=== PATIENT | female | born 1940 | race Caucasian/White ===

== ENCOUNTER 2023-08-13 13:37 | Inpatient (IN) | payer MEDICARE ==
[~2023-08-13] VITALS: Ht 157.4 cm; Wt 64.2 kg
[~2023-08-13 13:37] MED LIST: ALB0.5V IH; AMLO10TA4 PO; ASP81CT PO; ASPI-875 PO; ASPI1TAB PO; ASPI1TAB22 PO; ATEN100T88 PO; CEPH500C PO; DIPH25TA31 PO; DIPH25TA82 PO; EPIN0.3P3 IM; HYDR25TA4 PO; LEVO500T2 PO; LISI1TAB PO; LISI40TA PO; LRT10T PO; MECL25TA3 PO; MPR22TI NSEACH; NAPR220C11 PO; PRAV10TA PO; PRAV40TA PO; PRD20T PO; SCOP1PAT10 TD
--- NOTE | 2023-08-13 13:50 | ED Fall/Injury ---
General Chief Complaint: Trauma-Non Activation Stated Complaint: FELL/RT HIP/GROIN PAIN Source: patient Exam Limitations: no limitations History of Present Illness Date Seen by Provider: Aug 13, 2023 Time Seen by Provider: 13:43 Initial Comments 82-year-old female presents after a mechanical fall. She is making cookies with her granddaughter when her granddaughter jumped off of a counter to her causing her to fall down. She has pain at her right hip, groin region. She did not hit her head or lose consciousness. She is not on blood thinning medications. She has been unable to bear weight since the incident. All other systems reviewed and negative except documented per HPI. Voice recognition software was used to help create this chart Allergies and Home Medications Allergies Coded Allergies: lisinopril (Verified Allergy, Severe, angioedema, 01/18/14) pseudoephedrine HCl (Verified Allergy, Unknown, 01/18/14) famotidine (Verified Adverse Reaction, Mild, 01/19/14) pt started to feel short of breath after dose of pepcid Patient Home Medication List Home Medication List Reviewed: Yes Albuterol Sulfate (Albuterol Sulfate) 2.5 Mg/0.5 Ml Vial.neb, 2.5 MG IH Q4H Prescribed by: PRATEEK SEXTON on 05/05/16 0232 Amlodipine Besylate (Norvasc) 10 Mg Tablet, 10 MG PO DAILY Prescribed by: RAMÍREZ SAUNDERS on 01/28/14 0749 Aspirin (Harvey Aspirin) 81 Mg Tablet.dr, 81 MG PO HS, (Reported) Entered as Reported by: LEILANI VALENCIA on 01/18/14 1411 Aspirin/Acetaminophen/Caffeine (Excedrin Migraine Caplet) 1 Tab Tablet, 2 TAB PO DAILY PRN for MIGRAINE, (Reported) Entered as Reported by: LEILANI VALENCIA on 01/18/14 1411 Atenolol (Tenormin 100 Mg) 100 Mg Tablet, 100 MG PO HS, (Reported) Entered as Reported by: RIVERA PRUITT on 01/25/13 1432 Epinephrine (Epipen 2-Александр) 0.3 Mg/0.3 Ml Pen.injctr, 0.3 MG IM UD PRN for DYSP LORRIE Prescribed by: ARI ANG on 01/20/14 1138 Levofloxacin (Levaquin) 500 Mg Tablet, 500 MG PO DAILY Prescribed by: PRATEEK SEXTON on 05/05/16213 Loratadine (Claritin) 10 Mg Tab, 10 MG PO DAILY PRN for RUNNY NOSE, (Reported) Entered as Reported by: LEILANI VALENCIA on 01/18/14 141 Meclizine HCl (Antivert) 25 Mg Tablet, 1-2 TAB PO Q6H Prescribed by: PRATEEK SEXTON on 05/05/16213 Pravastatin Sodium (Pravastatin Sodium) 10 Mg Tablet, 10 MG PO HS, (Reported) Entered as Reported by: LEILANI VALENCIA on 01/18/14 142 Scopolamine (Transderm-Scop) 1 Each Patch.td72, 1 EACH TD Q72 HOURS Prescribed by: PRATEEK SEXTON on 05/05/16213 Review of Systems Review of Systems Constitutional: see HPI Past Icchvii-Lswsuk-Ylygeo Hx Patient Social History Tobacco Use?: No Substance use?: No Alcohol Use?: No Past Medical History Surgery/Hospitalization HX: HTN, BILAT KNEE, APPEN Appendectomy, Hysterectomy, Joint Replacement High Cholesterol, Hypertension Reproductive Disorders: 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: Hysterectomy Arthritis Eczema Family Medical History Cancer (ONE SISTER HAD BREAST CANCER ONE SISTER HAD OVARIAN CANCER) G8 SISTER Chest pain G8 SISTER Family history: Asthma (CHILDREN HAVE ASTHMA) Family history: Cardiovascular disease G8 SISTER Family history: Hypertension G8 BROTHER G8 SISTER Headache (DAUGHTERS HAVE SÁNCHEZ) Heart disease G8 SISTER Hypercholesterolemia G8 BROTHER Myocardial infarction 19 FATHER G8 SISTER Stroke (MATERNAL AUNT) Visual impairment (EVERYONE WEARS GLASSES) No Family History of: Abdominal aortic aneurysm [place]'s disease Alcoholism Aphasia Cancer of colon Cataract Congenital heart disease Congestive heart failure Cystic fibrosis Dementia Dysphagia Family history: Allergy Family history: Alzheimer's disease Family history: Arthritis Family history: Breast disease Family history: Coronary thrombosis Family history: Diabetes mellitus Family history: Gastrointestinal disease Family history: Glaucoma Family history: Osteoporosis Family history: Thyroid disorder Hearing loss Hereditary disease History of - anemia History of - disorder History of - respiratory disease History of drug abuse Human immunodeficiency virus (HIV) seropositivity Infertile Kidney disease Malignant neoplasm of lung Parkinson's disease Prostate cancer Psychotic disorder Seizure disorder Tuberculosis Physical Exam Vital Signs Vital Signs - First Documented 08/13/23 13:45 Pulse 74 B/P (MAP) 144/68 (93) Pulse Ox 94 O2 Delivery Room Air Capillary Refill : Height, Weight, BMI Height: 5'1" Weight: 150lbs. oz. 68.234936bh; 29.85 BMI Method:Stated General Appearance: WD/WN, no apparent distress Neck: non-tender, full range of motion Cardiovascular: regular rate, rhythm, no murmur Respiratory: chest non-tender, lungs clear, normal breath sounds, no respiratory distress, no accessory muscle use Gastrointestinal: normal bowel sounds, soft Extremities: other (Tenderness palpation right medial groin, lesser so in the lateral hip on the right side. Neurovascular motor and sensory intact distally. No distal tenderness.) Neurologic/Psychiatric: alert, oriented x 3 Skin: normal color, warm/dry Progress/Results/Core Measures Results/Orders Lab Results Laboratory Tests Test 08/13/23 14:45 Range/Units White Blood Count 8.4 4.3-11.0 10^3/uL Red Blood Count 4.51 3.80-5.11 10^6/uL Hemoglobin 13.7 11.5-16.0 g/dL Hematocrit 41 35-52 % Mean Corpuscular Volume 91 80-99 fL Mean Corpuscular Hemoglobin 30 25-34 pg Mean Corpuscular Hemoglobin Concent 34 32-36 g/dL Red Cell Distribution Width 12.8 10.0-14.5 % Platelet Count 171 130-400 10^3/uL Mean Platelet Volume 11.8 9.0-12.2 fL Immature Granulocyte % (Auto) 0 % Neutrophils (%) (Auto) 68 42-75 % Lymphocytes (%) (Auto) 23 12-44 % Monocytes (%) (Auto) 7 0-12 % Eosinophils (%) (Auto) 3 0-10 % Basophils (%) (Auto) 0 0-10 % Neutrophils # (Auto) 5.7 1.8-7.8 10^3/uL Lymphocytes # (Auto) 1.9 1.0-4.0 10^3/uL Monocytes # (Auto) 0.6 0.0-1.0 10^3/uL Eosinophils # (Auto) 0.2 0.0-0.3 10^3/uL Basophils # (Auto) 0.0 0.0-0.1 10^3/uL Immature Granulocyte # (Auto) 0.0 0.0-0.1 10^3/uL My Orders Orders - CRISTINA RIVERA DO Pelvis With Right Hip 2-3views (08/13/23 13:47) Cbc And Automated Diff (08/13/23 14:33) Basic Metabolic Panel (08/13/23 14:33) Ed Iv/Invasive Line Start (08/13/23 14:34) Chest 1 View, Ap/Pa Only (08/13/23 14:34) Ekg Tracing (08/13/23 14:34) Ed Admission (Communication) (08/13/23 14:35) Vital Signs/I&O 08/13/23 13:45 Pulse 74 B/P (MAP) 144/68 (93) Pulse Ox 94 O2 Delivery Room Air Comment Sinus rhythm with a rate of 80 bpm. Normal intervals. Normal axis. No ST or T wave abnormalities. No ectopy. No STEMI. Departure Communication (Admissions) Patient has a femoral neck fracture on the right side. No other obvious injurie s. Spoke with Dr. Her request admission. States she can eat tonight and will likely operate tomorrow. Spoke with Dr. Martinez who accepts the patient in admission. She request labs, EKG and chest x-ray for preop clearance. Impression Primary Impression: Femoral neck fracture Qualified Codes: S72.001A - Fracture of unspecified part of neck of right femur, initial encounter for closed fracture Disposition: ADMITTED INPATIENT Condition: Stable Admissions Decision to Admit Reason: Admit from ER (General) Departure-Patient Inst. Referrals: ARI ANG MD (PCP/Family) Primary Care Physician CRISTINA RIVERA DO Aug 13, 2023 13:50
--- NOTE | 2023-08-13 14:33 | Diagnostic Imaging Report ---
Indication: A fracture. AP pelvis and two-view right hip shows moderately displaced subcapital femoral neck fracture without dislocation. No acetabular injury. Superior and inferior pubic rami intact. Remaining bony pelvis and contralateral left hip intact Impression: Right femoral neck fracture without dislocation. Dictated by: Dictated on workstation # [id number]
[2023-08-13 14:48] LABS: BASOPHILS % (AUTO) 0 % (0-10); EOSINOPHILS # (AUTO) 0.2 10^3/uL (0.0-0.3); EOSINOPHILS % (AUTO) 3 % (0-10); HEMATOCRIT 41 % (35-52); HEMOGLOBIN 13.7 g/dL (11.5-16.0); LYMPHOCYTES # (AUTO) 1.9 10^3/uL (1.0-4.0); LYMPHOCYTES % (AUTO) 23 % (12-44); MEAN CORPUSCULAR HEMOGLOBIN 30 pg (25-34); MEAN CORPUSCULAR HGB CONC 34 g/dL (32-36); MEAN CORPUSCULAR VOLUME 91 fL (80-99); MEAN PLATELET VOLUME 11.8 fL (9.0-12.2); MONOCYTES # (AUTO) 0.6 10^3/uL (0.0-1.0); MONOCYTES % (AUTO) 7 % (0-12); NEUTROPHILS # (AUTO) 5.7 10^3/uL (1.8-7.8); NEUTROPHILS % (AUTO) 68 % (42-75); PLATELET COUNT 171 10^3/uL (130-400); WHITE BLOOD COUNT 8.4 10^3/uL (4.3-11.0)
[2023-08-13] MEDS ORDERED: fentaNYL INJECTION 100 MCG/2 ML VIAL IVP ONE (15:00)
[2023-08-13] MEDS ORDERED: LIDOCAINE UROJET 2% GEL 10 ML PKG TOP ONE (15:00)
--- NOTE | 2023-08-13 15:02 | History & Physical ---
History of Present Illness HPI/Chief Complaint Chief complaint: Right hip fracture HPI: This is an 82-year-old female with a history of hypertension and hyperlipidemia who sees Dr. Arndt who presented to the ER after a fall while making cookies with her granddaughter. Apparently she fell on the floor and sustained a right femoral neck fracture which will be repaired tomorrow by Dr Her. BP is stable. Source: patient Exam Limitations: no limitations Date Seen 08/13/23 Time Seen by a Provider: 18:00 Attending Physician Tiffanie Arndt MD PCP Admitting Physician: Attending Physician: Referring Physician Date of Admission Home Medications & Allergies Home Medications Reviewed patient Home Medication Reconciliation performed by pharmacy medication reconciliations robotics technician and/or nursing. Patients Allergies have been reviewed. Allergies Allergies Coded Allergies lisinopril (Verified Allergy, Severe, angioedema, 08/13/23) pseudoephedrine HCl (Verified Allergy, Unknown, 08/13/23) famotidine (Verified Adverse Reaction, Mild, 08/13/23) pt started to feel short of breath after dose of pepcid Past Nxxkaze-Oryvnn-Khodzg Hx Past Med/Social Hx: Reviewed Nursing Past Med/Soc Hx, Reviewed and Corrections made Patient Social History Marrital Status: Employed/Student: retired Alcohol Use: Denies Use Smoking Status: Never a Smoker Recent Hopitalizations: No Past Medical History Surgeries: Appendectomy, Hysterectomy, Joint Replacement Cardiac: High Cholesterol, Hypertension Reproductive: No Hysterectomy Musculoskeletal: Arthritis Skin/Integumentary: Eczema Family History Cancer (ONE SISTER HAD BREAST CANCER ONE SISTER HAD OVARIAN CANCER) G8 SISTER Chest pain G8 SISTER Family history: Asthma (CHILDREN HAVE ASTHMA) Family history: Cardiovascular disease G8 SISTER Family history: Hypertension G8 BROTHER G8 SISTER Headache (DAUGHTERS HAVE SÁNCHEZ) Heart disease G8 SISTER Hypercholesterolemia G8 BROTHER Myocardial infarction 19 FATHER G8 SISTER Stroke (MATERNAL AUNT) Visual impairment (EVERYONE WEARS GLASSES) No Family History of: Abdominal aortic aneurysm [place]'s disease Alcoholism Aphasia Cancer of colon Cataract Congenital heart disease Congestive heart failure Cystic fibrosis Dementia Dysphagia Family history: Allergy Family history: Alzheimer's disease Family history: Arthritis Family history: Breast disease Family history: Coronary thrombosis Family history: Diabetes mellitus Family history: Gastrointestinal disease Family history: Glaucoma Family history: Osteoporosis Family history: Thyroid disorder Hearing loss Hereditary disease History of - anemia History of - disorder History of - respiratory disease History of drug abuse Human immunodeficiency virus (HIV) seropositivity Infertile Kidney disease Malignant neoplasm of lung Parkinson's disease Prostate cancer Psychotic disorder Seizure disorder Tuberculosis Review of Systems Constitutional: see HPI Physical Exam Physical Exam Vital Signs Vital Signs - First Documented 08/13/23 08/13/23 13:45 19:53 Temp 38.6 Pulse 74 Resp 20 B/P (MAP) 144/68 (93) Pulse Ox 94 O2 Delivery Room Air Capillary Refill : Height, Weight, BMI Height: 5'1" Weight: 150lbs. oz. 68.749837wz; 23.00 BMI Method:Stated General Appearance: No Apparent Distress, WD/WN, Chronically ill Respiratory: Lungs Clear, Normal Breath Sounds Cardiovascular: Regular Rate, Rhythm, No Edema Gastrointestinal: Normal Bowel Sounds Neurologic/Psychiatric: Alert, Oriented x3, No Motor/Sensory Deficits, Normal Mood/Affect Skin: Normal Color, Warm/Dry Results Results/Procedures Labs Laboratory Tests 08/13/23 14:45 Patient resulted labs reviewed. Assessment/Plan Admission Diagnosis Assessment: Right femoral neck fracture HTN HLP Plan: Proceed with surgical repair since surgical benefits outweigh medical risks Admission Status: Inpatient Order (span 2 midnights) Reason for Inpatient Admission: hip fx EDDI CURRIE DO Aug 13, 2023 15:02
[2023-08-13 15:03] LABS: POTASSIUM 4.3 MMOL/L (3.6-5.0)
[2023-08-13 15:04] LABS: CALCIUM 9.4 MG/DL (8.5-10.1)
[2023-08-13 15:09] LABS: CREATININE SERUM 0.86 MG/DL (0.60-1.30)
--- NOTE | 2023-08-13 15:26 | Diagnostic Imaging Report ---
INDICATION: Hip fracture. FINDINGS: There is some right perihilar subsegmental discoid partial atelectasis or scarring, unchanged from prior. Heart size is stable. No failure, effusion, or pneumothorax. IMPRESSION: Stable chest. Dictated by: Dictated on workstation # [id number]
[2023-08-13] MEDS ORDERED: HYDROmorphone INJECTION 2 MG/ML VIAL IV PRN (16:00)
[2023-08-13] MEDS ORDERED: ONDANSETRON INJECTION 4 MG/2 ML (SDV) IV PRN (16:00)
[2023-08-13] MEDS ORDERED: LACTULOSE SYRUP 10GM/15ML 30ML UDC PO PRN (16:00)
[2023-08-13] MEDS ORDERED: ANTACID SUSPENSION 30 ML UDC PO PRN (16:00)
[2023-08-13] MEDS ORDERED: CALCIUM CARBONATE 500 MG CHEW TABLET PO PRN (16:00)
[2023-08-13] MEDS ORDERED: oxyCODONE IMMEDIATE RELEASE 5 MG TABLET PO PRN (16:00)
[2023-08-13] MEDS ORDERED: diphenhydrAMINE INJ 50 MG/ML VIAL IVP PRN (16:00)
[2023-08-13] MEDS ORDERED: diphenhydrAMINE 25 MG TABLET PO PRN (16:00)
[2023-08-13] MEDS ORDERED: ONDANSETRON 4 MG ORAL DISSOLVE TABLET PO PRN (16:00)
[2023-08-13] MEDS ORDERED: BISACODYL 10 MG SUPPOSITORY PR PRN (16:00)
[2023-08-13] MEDS ORDERED: MELATONIN 3 MG TABLET PO PRN (16:00)
[2023-08-13] MEDS ORDERED: MILK OF MAGNESIA 400 MG/5 ML 30 ML UDC PO PRN (16:00)
[2023-08-13 16:08] VITALS: BP 137/68
[2023-08-13] MEDS ORDERED: RT-ALBUTEROL SULF 2.5 MG/3 ML PRE-MIX VIAL INH PRN (16:15)
[2023-08-13] MEDS: NS IV 1000 ML 1,000 ML IV SCH (16:58)
[2023-08-13] MEDS ORDERED: AMLO-251 PO (17:14)
[2023-08-13] MEDS ORDERED: HYDR25TA4 PO (17:14)
[2023-08-13] MEDS ORDERED: METO50TA7 PO (17:14)
[2023-08-13] MEDS ORDERED: PRAV40TA2 PO (17:14)
--- NOTE | 2023-08-13 17:30 | CONSULTATION REPORT ---
DATE OF SERVICE: 08/13/2023 INPATIENT CONSULTATION REASON FOR CONSULTATION: Right femoral neck fracture. HISTORY OF PRESENT ILLNESS: The patient is an 82-year-old female who fell at home and presented with right hip pain. She was found to have a displaced right femoral neck fracture for which I was consulted. She denies any antecedent pain. REVIEW OF SYSTEMS: No chest pain, no shortness of breath. No dysuria. ALLERGIES: LISINOPRIL, PSEUDOEPHEDRINE, FAMOTIDINE. MEDICATIONS: Albuterol, amlodipine, aspirin, atenolol, pravastatin. SOCIAL HISTORY: The patient denies alcohol and tobacco use. PAST SURGICAL HISTORY: Appendectomy, hysterectomy, bilateral knee arthroplasties, appendectomy. FAMILY HISTORY: Significant for ovarian cancer and breast cancer. PHYSICAL EXAMINATION: The right lower extremity demonstrates tenderness laterally. She has symmetric pulses. She has intact dorsiflexion and plantarflexion of the toes. Her right lower extremity is slightly shortened and externally rotated. No skin lesions noted. IMPRESSION: Displaced right femoral neck fracture. PLAN: Right hip bipolar replacement. The risks, benefits, options, ramifications and recovery were discussed at length with the patient. She understands and wishes to proceed. Job ID: [id number] DocumentID: [id number] Dictated Date: 08/13/2023 16:38:53 Radiation Control Health Physicist Date: 08/13/2023 17:27:00 Dictated By: EAV JAIME MD
[2023-08-13 19:53] VITALS: BP 121/60
[2023-08-13] MEDS: amLODIPine 10 MG TABLET PO SCH (20:03)
[2023-08-13] MEDS: DOCUSATE SODIUM 100 MG CAPSULE PO SCH (20:04)
[2023-08-13] MEDS: SENNOSIDES 8.6 MG TABLET PO SCH (20:04)
[2023-08-13] MEDS ORDERED: NON-FORMULARY MEDICATION 1 EA EA (Pravastatin Sodium 40 MG) PO SCH (21:00)
[2023-08-13] MEDS: ACETAMINOPHEN 325 MG TABLET PO PRN (21:27)
[2023-08-13 23:36] VITALS: BP 108/51
[2023-08-14] VITALS (11 sets, daily range): BP systolic 108–153; BP diastolic 53–75
[2023-08-14 05:10] LABS: BASOPHILS % (AUTO) 0 % (0-10); HEMOGLOBIN 11.5 g/dL (11.5-16.0)
[2023-08-14] MEDS: NS IV 1000 ML 1,000 ML IV SCH ×2 (05:10→21:18)
[2023-08-14 05:12] LABS: EOSINOPHILS # (AUTO) 0.4 10^3/uL (0.0-0.3); EOSINOPHILS % (AUTO) 6 % (0-10); HEMATOCRIT 35 % (35-52); LYMPHOCYTES # (AUTO) 2.1 10^3/uL (1.0-4.0); LYMPHOCYTES % (AUTO) 29 % (12-44); MEAN CORPUSCULAR HEMOGLOBIN 31 pg (25-34); MEAN CORPUSCULAR HGB CONC 33 g/dL (32-36); MEAN CORPUSCULAR VOLUME 92 fL (80-99); MEAN PLATELET VOLUME 12.1 fL (9.0-12.2); MONOCYTES # (AUTO) 0.7 10^3/uL (0.0-1.0); MONOCYTES % (AUTO) 10 % (0-12); NEUTROPHILS # (AUTO) 3.9 10^3/uL (1.8-7.8); NEUTROPHILS % (AUTO) 54 % (42-75); PLATELET COUNT 125 10^3/uL (130-400); WHITE BLOOD COUNT 7.2 10^3/uL (4.3-11.0)
[2023-08-14 05:27] LABS: ALBUMIN 3.2 GM/DL (3.2-4.5); POTASSIUM 4.1 MMOL/L (3.6-5.0)
[2023-08-14 05:28] LABS: CALCIUM 8.2 MG/DL (8.5-10.1)
[2023-08-14 05:29] LABS: TOTAL PROTEIN 5.9 GM/DL (6.4-8.2)
[2023-08-14 05:31] LABS: BILIRUBIN,TOTAL 0.9 MG/DL (0.1-1.0)
[2023-08-14 05:33] LABS: CREATININE SERUM 0.77 MG/DL (0.60-1.30)
[2023-08-14] MEDS: SENNOSIDES 8.6 MG TABLET PO SCH ×3 (08:31→21:12)
[2023-08-14] MEDS: DOCUSATE SODIUM 100 MG CAPSULE PO SCH ×3 (08:31→21:12)
--- NOTE | 2023-08-14 09:57 | Progress Note ---
PATI JOHNSON 08/14/23 0957: Subjective Date Seen by a Provider: Aug 14, 2023 Time Seen by a Provider: 08:45 Subjective/Events-last exam Ms. Lal was found sitting in bed, with her daughter at bedside. She reports some hip pain, but otherwise feels well. She denies any headache/CP/SOB/abdomina l pain. She denies N/V/D. She has a benjamin catheter in place. She also endorses R arm pain, but states this is from where her granddaughter fell on her. Chest XR and EKG were unremarkable. She did apply emu oil to her R hip this morning. Review of Systems General: No Chills, No Night Sweats HEENT: No Head Aches, No Eye Pain Pulmonary: No Dyspnea, No Cough Cardiovascular: No: Chest Pain, Palpitations Gastrointestinal: No: Nausea, Vomiting, Abdominal Pain, Diarrhea Genitourinary: No Dysuria Musculoskeletal: arm pain Neurological: No: Weakness, Numbness Objective Exam Last Set of Vital Signs Vital Signs Date Time Temp Pulse Resp B/P (MAP) Pulse Ox O2 Delivery O2 Flow Rate FiO2 08/14/23 08:35 Room Air 08/14/23 08:27 37.4 68 19 126/61 (82) 91 Capillary Refill : I&O Intake and Output 08/13/23 23:59 Intake Total 360 ml Output Total 1300 ml Balance -940 ml Intake Oral 360 ml Output Urine Total 1300 ml General: Alert, Oriented X3, Cooperative, No Acute Distress HEENT: Atraumatic, EOMI, Mucous Memb Moist/Turner Neck: Supple Lungs: Clear to Auscultation, Normal Air Movement Heart: Regular Rate, No Murmurs Abdomen: Normal Bowel Sounds, Soft, No Tenderness Extremities: No Cyanosis, Normal Pulses Skin: No Rashes, No Significant Lesion Neuro: Normal Speech Psych/Mental Status: Mental Status NL Results Lab Laboratory Tests 08/13/23 14:45: White Blood Count 8.4, Red Blood Count 4.51, Hemoglobin 13.7, Hematocrit 41, Mean Corpuscular Volume 91, Mean Corpuscular Hemoglobin 30, Mean Corpuscular Hemoglobin Concent 34, Red Cell Distribution Width 12.8, Platelet Count 171, Mean Platelet Volume 11.8, Immature Granulocyte % (Auto) 0, Neutrophils (%) (Auto) 68, Lymphocytes (%) (Auto) 23, Monocytes (%) (Auto) 7, Eosinophils (%) (Auto) 3, Basophils (%) (Auto) 0, Neutrophils # (Auto) 5.7, Lymphocytes # (Auto) 1.9, Monocytes # (Auto) 0.6, Eosinophils # (Auto) 0.2, Basophils # (Auto) 0.0, Immature Granulocyte # (Auto) 0.0, Sodium Level 137, Potassium Level 4.3, Chloride Level 105, Carbon Dioxide Level 24, Anion Gap 8, Blood Urea Nitrogen 22H, Creatinine 0.86, Estimat Glomerular Filtration Rate 68, BUN/Creatinine Ratio 26, Glucose Level 101, Calcium Level 9.4 08/14/23 04:53: White Blood Count 7.2, Red Blood Count 3.77L, Hemoglobin 11.5, Hematocrit 35, Mean Corpuscular Volume 92, Mean Corpuscular Hemoglobin 31, Mean Corpuscular Hemoglobin Concent 33, Red Cell Distribution Width 12.7, Platelet Count 125L, Mean Platelet Volume 12.1, Immature Granulocyte % (Auto) 0, Neutrophils (%) (Auto) 54, Lymphocytes (%) (Auto) 29, Monocytes (%) (Auto) 10, Eosinophils (%) (Auto) 6, Basophils (%) (Auto) 0, Neutrophils # (Auto) 3.9, Lymphocytes # (Auto) 2.1, Monocytes # (Auto) 0.7, Eosinophils # (Auto) 0.4H, Basophils # (Auto) 0.0, Immature Granulocyte # (Auto) 0.0, Sodium Level 139, Potassium Level 4.1, Chloride Level 109H, Carbon Dioxide Level 25, Anion Gap 5, Blood Urea Nitrogen 14, Creatinine 0.77, Estimat Glomerular Filtration Rate 78, BUN/Creatinine Ratio 18, Glucose Level 94, Calcium Level 8.2L, Percent Immature Platelet Fraction 8.3H, Corrected Calcium 8.8, Total Bilirubin 0.9, Aspartate Amino Transf (AST/SGOT) 19, Alanine Aminotransferase (ALT/SGPT) 14, Alkaline Phosphatase 48, Total Protein 5.9L, Albumin 3.2 Assessment/Plan Assessment/Plan Assess & Plan/Chief Complaint Assessment: Ms. Lal is an 82 y/o female with R femoral neck fracture Plan: R Femoral Neck Fracture -Dr. Her to operate this afternoon -pain meds prn -supportive measure HTN -amlodipine -monitor vitals HLD -atorvastatin -monitor labs Clinical Quality Measures DVT/VTE Risk/Contraindication: Contraindications-Pharm: Other *list below* Other: OR CALLIE CURRIE DO 08/15/23 0602: Subjective Subjective/Events-last exam Patient awaiting surgery Reviewed meds and labs Gentle IV fluids continue Objective Exam General: Alert, Oriented X3, Cooperative, No Acute Distress Lungs: Clear to Auscultation, Normal Air Movement Heart: Regular Rate, Normal S1, Normal S2, No Murmurs Psych/Mental Status: Mental Status NL, Mood NL Assessment/Plan Assessment/Plan Assess & Plan/Chief Complaint Continue plan for repair today Monitor labs PT and OT Supervisory-Addendum Brief Verification & Attestation Participated in pt care: history, MDM, physical Personally performed: exam, history, MDM, supervision of care Care discussed with: Medical Student Procedures: n/a Results interpretation: Verified all documentation Verification and Attestation of Medical Student E/M Service A medical student performed and documented this service in my presence. I reviewed and verified all information documented by the medical student and made modifications to such information, when appropriate. I personally performed the physical exam and medical decision making. Callie Currie, Aug 15, 2023,06:01 PATI JOHNSON Aug 14, 2023 09:57 CALLIE CURRIE DO Aug 15, 2023 06:02
[2023-08-14] MEDS ORDERED: ASPI-992 PO (11:31)
[2023-08-14] MEDS ORDERED: LACTATED RINGERS 1,000 ML 1,000 ML IV PRN ×2 (13:00→14:15)
[2023-08-14] MEDS ORDERED: LIDOCAINE PF 2% 5 ML VIAL ONE (13:01)
[2023-08-14] MEDS ORDERED: fentaNYL INJECTION 100 MCG/2 ML VIAL ONE (13:01)
[2023-08-14] MEDS ORDERED: SEVOFLURANE (ULTANE) 15 ML INHAL SOLN ONE ×2 (13:01→15:52)
[2023-08-14] MEDS ORDERED: MIDAZOLAM INJ 2 MG/2 ML VIAL ONE (13:01)
[2023-08-14] MEDS ORDERED: ONDANSETRON INJECTION 4 MG/2 ML (SDV) ONE (13:01)
[2023-08-14] MEDS ORDERED: proPOfol INJECTION 200 MG/20 ML VIAL IV ONE (13:01)
[2023-08-14] MEDS ORDERED: NALOXONE 0.4 MG/ML 1 ML VIAL IV PRN (13:30)
[2023-08-14] MEDS ORDERED: ONDANSETRON INJECTION 4 MG/2 ML (SDV) IVP PRN (13:30)
--- NOTE | 2023-08-14 13:49 | Progress Note-Pre Operative ---
Pre-Operative Progress Note Date of Available H&P: Aug 14, 2023 Date H&P Reviewed: Aug 14, 2023 Time H&P Reviewed: 13:49 Changes from last HP none Pre-Operative Diagnosis: right femoral neck fracture EVA JAIME MD Aug 14, 2023 13:49
--- NOTE | 2023-08-14 13:50 | Progress Note-Post Operative ---
Post-Operative Progess Note Surgeon (s)/Sccm Administrator (s) Surgeon EVA JAIME MD Sccm Administrator: Dimitri Quiroz Pre-Operative Diagnosis right femoral neck fracture Post-Operative Diagnosis right femoral neck fracture Procedure & Operative Findings Date of Procedure 08/14/23 Procedure Performed/Findings right hip bipolar replacement Anesthesia Type GETA Estimated Blood Loss Estimated blood loss (mL): 100ml Specimens/Packing Specimens Removed femoral head Packing: none EVA JAIME MD Aug 14, 2023 13:50
[2023-08-14] MEDS ORDERED: ceFAZolin INJECTION 2,000 MG in NS (IVPB) 50 ML 50 ML IV NR (14:00)
[2023-08-14] MEDS ORDERED: BUPIVACAINE 0.5% 30 ML VIAL ONE (15:16)
[2023-08-14] MEDS: fentaNYL INJECTION 100 MCG/2 ML VIAL IVP PRN ×2 (17:01→21:18)
--- NOTE | 2023-08-14 17:06 | Diagnostic Imaging Report ---
INDICATION: Post right hip prosthesis. TECHNIQUE: Single AP pelvis 3:28 PM. CORRELATION STUDY: 08/13/2023 FINDINGS: Since prior, there is been resection of the femoral head and neck and placement of a right femoral prosthesis. Alignment appears to be intact and anatomic on this single projection. Small amount of overlying soft tissue gas. IMPRESSION: 1. Postoperative right hip arthroplasty. Dictated by: Dictated on workstation # [id number]
[2023-08-14] MEDS: oxyCODONE IMMEDIATE RELEASE 5 MG TABLET PO PRN (20:17)
[2023-08-14] MEDS: ceFAZolin INJECTION 2,000 MG in NS (IVPB) 50 ML 50 ML IV SCH (20:18)
[2023-08-14] MEDS: amLODIPine 10 MG TABLET PO SCH (20:18)
--- NOTE | 2023-08-15 00:04 | OPERATIVE REPORT ---
DATE OF SERVICE: 08/14/2023 PREOPERATIVE DIAGNOSIS: Closed displaced right femoral neck fracture. POSTOPERATIVE DIAGNOSIS: Closed displaced right femoral neck fracture. PROCEDURE: Right hip bipolar replacement. SURGEON: Brayan Jaime MD REGISTERED MEDICAL ASSISTANT: Dimitri Quiroz, who assisted throughout the procedure and closed the incision. ANESTHESIA: General endotracheal by Carolina Parada CRNA. ESTIMATED BLOOD LOSS: 100 mL. DRAINS: None. COMPLICATIONS: None. POSTOPERATIVE PLAN: Routine protocol. MATERIALS: Depuy/Synthes pressfit size 4 stem with 46 head in a neutral neck. STATEMENT OF MEDICAL NECESSITY: The patient is an 82-year-old independently living female who fell at home yesterday. She presented with a displaced right femoral neck fracture. The patient was counseled regarding treatment options and elected to proceed with surgical intervention. DESCRIPTION OF PROCEDURE: After risks and benefits of the procedure were discussed and questions were answered and informed consent signed and placed on the chart, the operative site was confirmed in the preoperative holding area initialed by surgeon. The patient was then transferred to the operating room and after adequate levels of general endotracheal anesthetic were obtained, a timeout was called, confirming the operative site. The patient was carefully placed in the left lateral decubitus position, being careful placed an axillary roll and pad all bony prominences. The right hip and lower extremity were prepped and draped in the usual sterile fashion. A standard anterolateral approach was utilized. Hemostasis was obtained with cautery. The iliotibial band was incised in line with the incision. The abductor was released from its greater trochanter attachment leaving 1 cm cuff for later reattachment. Hip capsulotomy was performed. The femoral head was removed without difficulty and sized to a size 46. The cutting guide was placed and the femoral neck cut was made. The joint was irrigated and inspected for loose bodies. The acetabulum demonstrated mild wear, but no significant cartilage loss. The proximal femur was then prepared with the box chisel, followed by T-handle reamer and sequential broaches up to a size 4. This was then trialled with a 46 head in a neutral neck. The hip was reduced and taken through range of motion, no impingement was noted, no instability was noted in any plane and the hip was stable. The hip was then redislocated. The trials were removed. The joint was irrigated with further pulse lavage. In addition, 450 mL of Irrisept was used throughout the procedure. The stem was then placed in 15 degrees of anteversion. The proximal aspect was then irrigated and dried and the head liner was placed. The acetabulum was then irrigated and inspected for any loose bodies. The hip was reduced and taken through range of motion, no impingement. Full motion noted and no instability was noted. The joint was further irrigated with pulse lavage and Irrisept and the abductor and capsule were closed with #5 Tevdek in [id number] interrupted fashion with excellent repair obtained. The wound was further irrigated with pulse lavage using a total of 3 liters throughout the procedure. The iliotibial band was closed in a running fashion with #1 Vicryl. Subcutaneous tissues were irrigated. 0 Vicryl was used to deep subcutaneous layer, 2-0 Vicryl for the superficial subcutaneous layer, [place] used on the skin. Incision was infiltrated with plain Marcaine. A soft dressing was applied. The patient was transferred to the recovery room awake and in stable condition. Job ID: [id number] DocumentID: [id number] Dictated Date: 08/14/2023 15:42:43 Eyeletter Date: 08/15/2023 00:02:00 Dictated By: BRAYAN JAIME MD
[2023-08-15 04:06] VITALS: BP 129/60
[2023-08-15] MEDS: fentaNYL INJECTION 100 MCG/2 ML VIAL IVP PRN (04:14)
[2023-08-15] MEDS: ceFAZolin INJECTION 2,000 MG in NS (IVPB) 50 ML 50 ML IV SCH (04:14)
[2023-08-15 05:15] LABS: PLATELET COUNT 124 10^3/uL (130-400)
[2023-08-15 05:16] LABS: BASOPHILS % (AUTO) 0 % (0-10); EOSINOPHILS # (AUTO) 0.3 10^3/uL (0.0-0.3); EOSINOPHILS % (AUTO) 4 % (0-10); HEMATOCRIT 35 % (35-52); HEMOGLOBIN 11.4 g/dL (11.5-16.0); LYMPHOCYTES # (AUTO) 1.7 10^3/uL (1.0-4.0); LYMPHOCYTES % (AUTO) 22 % (12-44); MEAN CORPUSCULAR HEMOGLOBIN 30 pg (25-34); MEAN CORPUSCULAR HGB CONC 33 g/dL (32-36); MEAN CORPUSCULAR VOLUME 91 fL (80-99); MEAN PLATELET VOLUME 12.2 fL (9.0-12.2); MONOCYTES # (AUTO) 0.8 10^3/uL (0.0-1.0); MONOCYTES % (AUTO) 10 % (0-12); NEUTROPHILS % (AUTO) 64 % (42-75); WHITE BLOOD COUNT 7.9 10^3/uL (4.3-11.0)
[2023-08-15 05:28] LABS: ALBUMIN 3.1 GM/DL (3.2-4.5)
[2023-08-15 05:29] LABS: POTASSIUM 4.1 MMOL/L (3.6-5.0)
[2023-08-15 05:30] LABS: CALCIUM 7.9 MG/DL (8.5-10.1)
[2023-08-15 05:31] LABS: TOTAL PROTEIN 5.7 GM/DL (6.4-8.2)
[2023-08-15 05:33] LABS: BILIRUBIN,TOTAL 0.7 MG/DL (0.1-1.0)
[2023-08-15 05:35] LABS: CREATININE SERUM 0.77 MG/DL (0.60-1.30)
[2023-08-15 07:30] VITALS: BP 116/56
--- NOTE | 2023-08-15 07:53 | Progress Note ---
Standard Progress Note Progress Notes/Assess & Plan Date Seen by a Provider: Aug 15, 2023 Time Seen by a Provider: 07:40 Progress/Assessment & Plan no complaints radiograph--HW well positioned without fracture Laboratory Tests Test 08/15/23 04:47 Range/Units White Blood Count 7.9 4.3-11.0 10^3/uL Red Blood Count 3.82 3.80-5.11 10^6/uL Hemoglobin 11.4 L 11.5-16.0 g/dL Hematocrit 35 35-52 % Mean Corpuscular Volume 91 80-99 fL Mean Corpuscular Hemoglobin 30 25-34 pg Mean Corpuscular Hemoglobin Concent 33 32-36 g/dL Red Cell Distribution Width 12.5 10.0-14.5 % Platelet Count 124 L 130-400 10^3/uL Mean Platelet Volume 12.2 9.0-12.2 fL Immature Granulocyte % (Auto) 0 % Neutrophils (%) (Auto) 64 42-75 % Lymphocytes (%) (Auto) 22 12-44 % Monocytes (%) (Auto) 10 0-12 % Eosinophils (%) (Auto) 4 0-10 % Basophils (%) (Auto) 0 0-10 % Neutrophils # (Auto) 5.0 1.8-7.8 10^3/uL Lymphocytes # (Auto) 1.7 1.0-4.0 10^3/uL Monocytes # (Auto) 0.8 0.0-1.0 10^3/uL Eosinophils # (Auto) 0.3 0.0-0.3 10^3/uL Basophils # (Auto) 0.0 0.0-0.1 10^3/uL Immature Granulocyte # (Auto) 0.0 0.0-0.1 10^3/uL Percent Immature Platelet Fraction 9.6 H 0.0-7.6 % Sodium Level 135 135-145 MMOL/L Potassium Level 4.1 3.6-5.0 MMOL/L Chloride Level 102 98-107 MMOL/L Carbon Dioxide Level 26 21-32 MMOL/L Anion Gap 7 5-14 MMOL/L Blood Urea Nitrogen 9 7-18 MG/DL Creatinine 0.77 0.60-1.30 MG/DL Estimat Glomerular Filtration Rate 78 BUN/Creatinine Ratio 12 Glucose Level 94 70-105 MG/DL Calcium Level 7.9 L 8.5-10.1 MG/DL Corrected Calcium 8.6 8.5-10.1 MG/DL Total Bilirubin 0.7 0.1-1.0 MG/DL Aspartate Amino Transf (AST/SGOT) 24 5-34 U/L Alanine Aminotransferase (ALT/SGPT) 13 0-55 U/L Alkaline Phosphatase 46 40-136 U/L Total Protein 5.7 L 6.4-8.2 GM/DL Albumin 3.1 L 3.2-4.5 GM/DL Vital Signs Date Time Temp Pulse Resp B/P (MAP) Pulse Ox O2 Delivery O2 Flow Rate FiO2 08/15/23 07:30 37.3 80 18 116/56 (76) 95 Nasal Cannula 2.00 08/15/23 04:06 37.4 75 16 129/60 (83) 93 Nasal Cannula 2.00 08/14/23 23:50 37.5 77 16 108/53 (71) 94 Nasal Cannula 2.00 08/14/23 20:33 98 Nasal Cannula 2.00 08/14/23 20:00 Room Air 08/14/23 19:30 36.7 76 16 120/58 (78) 96 Room Air 08/14/23 16:40 Nasal Cannula 2.00 08/14/23 16:30 OxyMask 2.00 08/14/23 16:30 36.7 16 127/54 (78) 93 Nasal Cannula 2.00 08/14/23 16:20 14 133/55 (81) 97 OxyMask 2.00 08/14/23 16:15 OxyMask 2.00 08/14/23 16:10 16 145/65 (91) 99 OxyMask 2.00 08/14/23 16:00 OxyMask 4.00 08/14/23 16:00 16 147/65 (92) 97 OxyMask 4.00 08/14/23 15:50 20 148/67 (94) 99 OxyMask 4.00 08/14/23 15:43 OxyMask 4.00 08/14/23 15:43 36.4 25 153/75 (101) 100 OxyMask 4.00 08/14/23 12:33 37.4 71 17 116/58 (77) 91 Nasal Cannula 2.00 08/14/23 08:35 Room Air 08/14/23 08:27 37.4 68 19 126/61 (82 91 Room Air I & O 08/15/23 07:00 Intake Total 1550 ml Output Total 2950 ml Balance -1400 ml RLE--dressing intact intact DF and PF of toes and ankle pulses symmetric sensation intact to light touch throughout s/p R hip bipolar mobilize DC EVA Ortiz MD Aug 15, 2023 07:53
[2023-08-15] MEDS ORDERED: ENOXAPARIN 40 MG/0.4 ML SYRINGE SC NR (08:00)
[2023-08-15] MEDS: DOCUSATE SODIUM 100 MG CAPSULE PO SCH ×2 (08:50→20:16)
[2023-08-15] MEDS: oxyCODONE IMMEDIATE RELEASE 5 MG TABLET PO PRN ×3 (08:50→17:26)
[2023-08-15] MEDS: SENNOSIDES 8.6 MG TABLET PO SCH ×2 (08:50→20:16)
[2023-08-15] MEDS: NS IV 1000 ML 1,000 ML IV SCH (08:52)
--- NOTE | 2023-08-15 10:35 | Physical Therapy Evaluation ---
PT Evaluation-General Medical Diagnosis Admission Date Aug 13, 2023 at 15:30 Medical Diagnosis: Right femur fracture Onset Date: Aug 13, 2023 Therapy Diagnosis Therapy Diagnosis: Gait deficit, strength deficit Height/Weight Height (Feet): 5 Height (Inches): 1 Weight (Pounds): 150 Precautions Precautions/Isolations: Fall Prevention, Standard Precautions Weight Bear Status Right Lower Extremity: Right Weight Bearing/Tolerated Left Lower Extremity: Left Full Weight Bearing Referral Physician: Dr. Her Reason for Referral: Evaluation/Treatment Medical History Reviewed History: Yes Social History Home: Single Level Current Living Status: Other Family Entry Into Home: Level Entry PT Steps Into Home: 0 Prior Prior Level of Function SCALE: Activities may be completed with or without assistive devices. 3-Sdkgmzprhf-axewaly completes the activity by him/herself with no assistance from a helper. 5-Set-up or Clean-up Assistance-helper sets up or cleans up; patient completes activity. [place] assists only prior to or following the activity. 4-Supervision or Touching Assistance-helper provides verbal cues and/or touching/steadying and/or contact guard assistance as patient completes activity. Assistance may be provided throughout the activity or intermittently. 3-Partial/Moderate Assistance-helper does LESS THAN HALF the effort. [place] lifts, holds or supports trunk or limbs, but provides less than half the effort. 2-Substantial/Maximal Assistance-helper does MORE THAN HALF the effort. [place] lifts or holds trunk or limbs and provides more than half the effort. 5-Fvfpajdhp-numdft does ALL the effort. Patient does none of the effort to complete the activity. Or, the assistance of 2 or more helpers is required for the patient to complete the activity. If activity was not attempted, code reason: 7-Patient Refused. 9-Not Applicable-not attempted and the patient did not perform the activity before the current illness, exacerbation or injury. 10-Not Attempted due to Environmental Limitations-(lack of equipment, weather restraints, etc.). 88-Not Attempted due to Medical Conditions or Safety Concerns. Bed Mobility: 6 Transfers (B,C,W/C): 6 Gait: 6 Stairs: 6 Indoor Mobility (Ambulation): Independent Stairs: Independent Prior Devices Use: None Has FWW at home from Previous [facility] PT Evaluation-Current Subjective Patient lying supine in bed upon PT arrival, agreeable to treatment. Patient rates pain at 2/10 at rest and 10/10 with activity. Objective Patient Orientation: Person, Place, Situation Attachments: IV ROM/Strength ROM Lower Extremities Right LE limited all hip planes. Knee and ankle WFLs. Left LE WFLs all planes. Sensory Vision: Functional Hearing: Functional Sensation Right Lower Extremit: Intact Sensation Left Lower Extremity: Intact Transfers Roll Left to Right (QC): 3 Sit to Lying (QC): 3 Lying to Sitting/Side of Bed(Q: 3 Sit to Stand (QC): 3 Chair/Gfg-fd-Uaxrz Xfer(QC): 3 Gait Does the Patient Walk?: Yes Mode of Locomotion: Walk Anticipated Mode of Locomotion: Walk Walk 10 feet (QC): 3 Distance: 15' Gait Assistive Device: FWW Balance Sitting Static: Fair Sitting Dynamic: Fair Standing Static: Fair Standing Dynamic: Fair Assessment/Needs Patient performs all bed mobility and transfers with mod A. Patient ambulates 15' with FWW, with min/mod A in the room. Patient ambulates with step to gait pattern on the right LE, however tolerates well. She is able to safely turn and pivot on her left LE. Patient in chair post treatment with all needs met, nursing notified, call light in hand and chair alarm in place. Rehab Potential: Fair PT Certified Appliance Service Technician Goals Certified Appliance Service Technician Goals PT Certified Appliance Service Technician Goals Time Frame: Aug 27, 2023 Roll Left & Right (QC): 6 Sit to Lying (QC): 6 Lying-Sitting on Side/Bed(QC): 6 Sit to Stand (QC): 6 Chair/Dah-hc-Egdnx Xfer(QC): 6 Toilet Transfer (QC): 6 Does the Patient Walk: Yes Walk 10 feet (QC): 6 Walk 50ft with 2 Turns (QC): 4 Walk 150 ft (QC): 4 PT Plan Problem List Problem List: Activity Tolerance, Functional Strength, Safety, Balance, Gait, Transfer, Bed Mobility, ROM Treatment/Plan Treatment Plan: Continue Plan of Care Treatment Plan: Bed Mobility, Education, Functional Activity [place], Functional Strength, Group Therapy, Gait, Safety, Therapeutic Exercise, Transfers Treatment Duration: Aug 27, 2023 Frequency: 11 times per week Estimated Hrs Per Day: .25 hour per day Patient and/or Family Agrees t: Yes Safety Risks/Education Patient Education: Gait Training, Transfer Techniques Teaching Recipient: Patient, Family Teaching Methods: Demonstration, Discussion Response to Teaching: Reinforcement Needed Time Time In: 958 Time Out: 1025 DATE: Aug 15, 2023 Total Billed Treatment Time: 27 Total Billed Treatment Visit, JAMEL KEITH JOHN A PT Aug 15, 2023 10:35
[2023-08-15 11:15] VITALS: BP 121/57
--- NOTE | 2023-08-15 11:38 | Progress Note ---
Subjective Date Seen by a Provider: Aug 15, 2023 Time Seen by a Provider: 11:00 Subjective/Events-last exam Patient doing well Transfers are very slow and painful ARU will likely be needed Labs stable Review of Systems Musculoskeletal: leg pain Objective Exam Last Set of Vital Signs Vital Signs Date Time Temp Pulse Resp B/P (MAP) Pulse Ox O2 Delivery O2 Flow Rate FiO2 08/15/23 11:15 37.4 75 18 121/57 (78) 94 Room Air 08/15/23 07:30 2.00 Capillary Refill : I&O Intake and Output 08/14/23 23:59 Intake Total 1450 ml Output Total 2725 ml Balance -1275 ml Intake Oral 500 ml IV Total 950 ml Output Urine Total 2725 ml General: Alert, Oriented X3, Cooperative, No Acute Distress Lungs: Clear to Auscultation, Normal Air Movement Heart: Regular Rate, Normal S1, Normal S2, No Murmurs Psych/Mental Status: Mental Status NL, Mood NL Results Lab Laboratory Tests 08/15/23 04:47: White Blood Count 7.9, Red Blood Count 3.82, Hemoglobin 11.4L, Hematocrit 35, Mean Corpuscular Volume 91, Mean Corpuscular Hemoglobin 30, Mean Corpuscular Hemoglobin Concent 33, Red Cell Distribution Width 12.5, Platelet Count 124L, Mean Platelet Volume 12.2, Immature Granulocyte % (Auto) 0, Neutrophils (%) (Auto) 64, Lymphocytes (%) (Auto) 22, Monocytes (%) (Auto) 10, Eosinophils (%) (Auto) 4, Basophils (%) (Auto) 0, Neutrophils # (Auto) 5.0, Lymphocytes # (Auto) 1.7, Monocytes # (Auto) 0.8, Eosinophils # (Auto) 0.3, Basophils # (Auto) 0.0, Immature Granulocyte # (Auto) 0.0, Percent Immature Platelet Fraction 9.6H, Sodium Level 135, Potassium Level 4.1, Chloride Level 102, Carbon Dioxide Level 26, Anion Gap 7, Blood Urea Nitrogen 9, Creatinine 0.77, Estimat Glomerular Filtration Rate 78, BUN/Creatinine Ratio 12, Glucose Level 94, Calcium Level 7.9L, Corrected Calcium 8.6, Total Bilirubin 0.7, Aspartate Amino Transf (AST/SGOT) 24, Alanine Aminotransferase (ALT/SGPT) 13, Alkaline Phosphatase 46, Total Protein 5.7L, Albumin 3.1L Microbiology 08/13/23 MRSA Screen - Final, Complete MRSA not isolated Assessment/Plan Assessment/Plan Assess & Plan/Chief Complaint Continue recovery Monitor labs PT and OT ARU Clinical Quality Measures DVT/VTE Risk/Contraindication: Contraindications-Pharm: Other *list below* Other: OR EDDI CURRIE DO Aug 15, 2023 11:38
--- NOTE | 2023-08-15 12:24 | Anesthesia-General Post-Op ---
General Patient Condition Mental Status/LOC: Same as Preop Cardiovascular: Satisfactory Nausea/Vomiting: Absent Respiratory: Satisfactory Pain: Controlled Complications: Absent Post Op Complications Complications None Follow Up Care/Instructions Patient Instructions None needed. Anesthesia/Patient Condition Patient Condition Patient is doing well, no complaints, stable vital signs, no apparent adverse anesthesia problems. No complications reported per nursing. RILEY WARD CRNA Aug 15, 2023 12:24
[2023-08-15 15:23] VITALS: BP 136/63
[2023-08-15] MEDS ORDERED: HYDROcodone/ACETAMINOPHEN 5 MG/325 MG TABLET PO PRN (19:15)
[2023-08-15 19:43] VITALS: BP 116/52
[2023-08-15] MEDS: amLODIPine 10 MG TABLET PO SCH (20:15)
[2023-08-15] MEDS: ACETAMINOPHEN 325 MG TABLET PO PRN (20:16)
[2023-08-15] MEDS ORDERED: oxyCODONE IMMEDIATE RELEASE 5 MG TABLET PO PRN (21:30)
[2023-08-15 23:08] VITALS: BP 107/64
[2023-08-16 03:03] VITALS: BP 146/69
[2023-08-16 05:59] LABS: ALBUMIN 3.1 GM/DL (3.2-4.5)
[2023-08-16 06:00] LABS: BASOPHILS % (AUTO) 0 % (0-10); POTASSIUM 4.2 MMOL/L (3.6-5.0)
[2023-08-16 06:01] LABS: CALCIUM 8.3 MG/DL (8.5-10.1)
[2023-08-16 06:02] LABS: EOSINOPHILS # (AUTO) 0.3 10^3/uL (0.0-0.3); EOSINOPHILS % (AUTO) 4 % (0-10); HEMATOCRIT 34 % (35-52); HEMOGLOBIN 11.2 g/dL (11.5-16.0); LYMPHOCYTES # (AUTO) 1.6 10^3/uL (1.0-4.0); LYMPHOCYTES % (AUTO) 17 % (12-44); MEAN CORPUSCULAR HEMOGLOBIN 31 pg (25-34); MEAN CORPUSCULAR HGB CONC 33 g/dL (32-36); MEAN CORPUSCULAR VOLUME 92 fL (80-99); MEAN PLATELET VOLUME 12.3 fL (9.0-12.2); MONOCYTES # (AUTO) 0.9 10^3/uL (0.0-1.0); MONOCYTES % (AUTO) 10 % (0-12); NEUTROPHILS # (AUTO) 6.5 10^3/uL (1.8-7.8); NEUTROPHILS % (AUTO) 69 % (42-75); PLATELET COUNT 121 10^3/uL (130-400); WHITE BLOOD COUNT 9.4 10^3/uL (4.3-11.0)
[2023-08-16 06:06] LABS: CREATININE SERUM 0.83 MG/DL (0.60-1.30)
--- NOTE | 2023-08-16 06:32 | Progress Note ---
Standard Progress Note Progress Notes/Assess & Plan Date Seen by a Provider: Aug 16, 2023 Time Seen by a Provider: 06:23 Progress/Assessment & Plan no complaints radiograph--HW well positioned without fracture Laboratory Tests Test 08/15/23 04:47 Range/Units White Blood Count 7.9 4.3-11.0 10^3/uL Red Blood Count 3.82 3.80-5.11 10^6/uL Hemoglobin 11.4 L 11.5-16.0 g/dL Hematocrit 35 35-52 % Mean Corpuscular Volume 91 80-99 fL Mean Corpuscular Hemoglobin 30 25-34 pg Mean Corpuscular Hemoglobin Concent 33 32-36 g/dL Red Cell Distribution Width 12.5 10.0-14.5 % Platelet Count 124 L 130-400 10^3/uL Mean Platelet Volume 12.2 9.0-12.2 fL Immature Granulocyte % (Auto) 0 % Neutrophils (%) (Auto) 64 42-75 % Lymphocytes (%) (Auto) 22 12-44 % Monocytes (%) (Auto) 10 0-12 % Eosinophils (%) (Auto) 4 0-10 % Basophils (%) (Auto) 0 0-10 % Neutrophils # (Auto) 5.0 1.8-7.8 10^3/uL Lymphocytes # (Auto) 1.7 1.0-4.0 10^3/uL Monocytes # (Auto) 0.8 0.0-1.0 10^3/uL Eosinophils # (Auto) 0.3 0.0-0.3 10^3/uL Basophils # (Auto) 0.0 0.0-0.1 10^3/uL Immature Granulocyte # (Auto) 0.0 0.0-0.1 10^3/uL Percent Immature Platelet Fraction 9.6 H 0.0-7.6 % Sodium Level 135 135-145 MMOL/L Potassium Level 4.1 3.6-5.0 MMOL/L Chloride Level 102 98-107 MMOL/L Carbon Dioxide Level 26 21-32 MMOL/L Anion Gap 7 5-14 MMOL/L Blood Urea Nitrogen 9 7-18 MG/DL Creatinine 0.77 0.60-1.30 MG/DL Estimat Glomerular Filtration Rate 78 BUN/Creatinine Ratio 12 Glucose Level 94 70-105 MG/DL Calcium Level 7.9 L 8.5-10.1 MG/DL Corrected Calcium 8.6 8.5-10.1 MG/DL Total Bilirubin 0.7 0.1-1.0 MG/DL Aspartate Amino Transf (AST/SGOT) 24 5-34 U/L Alanine Aminotransferase (ALT/SGPT) 13 0-55 U/L Alkaline Phosphatase 46 40-136 U/L Total Protein 5.7 L 6.4-8.2 GM/DL Albumin 3.1 L 3.2-4.5 GM/DL Vital Signs Date Time Temp Pulse Resp B/P (MAP) Pulse Ox O2 Delivery O2 Flow Rate FiO2 08/15/23 07:30 37.3 80 18 116/56 (76) 95 Nasal Cannula 2.00 08/15/23 04:06 37.4 75 16 129/60 (83) 93 Nasal Cannula 2.00 08/14/23 23:50 37.5 77 16 108/53 (71) 94 Nasal Cannula 2.00 08/14/23 20:33 98 Nasal Cannula 2.00 08/14/23 20:00 Room Air 08/14/23 19:30 36.7 76 16 120/58 (78) 96 Room Air 08/14/23 16:40 Nasal Cannula 2.00 08/14/23 16:30 OxyMask 2.00 08/14/23 16:30 36.7 16 127/54 (78) 93 Nasal Cannula 2.00 08/14/23 16:20 14 133/55 (81) 97 OxyMask 2.00 08/14/23 16:15 OxyMask 2.00 08/14/23 16:10 16 145/65 (91) 99 OxyMask 2.00 08/14/23 16:00 OxyMask 4.00 08/14/23 16:00 16 147/65 (92) 97 OxyMask 4.00 08/14/23 15:50 20 148/67 (94) 99 OxyMask 4.00 08/14/23 15:43 OxyMask 4.00 08/14/23 15:43 36.4 25 153/75 (101) 100 OxyMask 4.00 08/14/23 12:33 37.4 71 17 116/58 (77) 91 Nasal Cannula 2.00 08/14/23 08:35 Room Air 08/14/23 08:27 37.4 68 19 126/61 (82) 91 Room Air I & O 08/15/23 07:00 Intake Total 1550 ml Output Total 2950 ml Balance -1400 ml RLE--dressing intact intact DF and PF of toes and ankle pulses symmetric sensation intact to light touch throughout s/p R hip bipolar mobilize EULA Conner Final Diagnosis no complaints Laboratory Tests Test 08/16/23 05:33 Range/Units White Blood Count 9.4 4.3-11.0 10^3/uL Red Blood Count 3.66 L 3.80-5.11 10^6/uL Hemoglobin 11.2 L 11.5-16.0 g/dL Hematocrit 34 L 35-52 % Mean Corpuscular Volume 92 80-99 fL Mean Corpuscular Hemoglobin 31 25-34 pg Mean Corpuscular Hemoglobin Concent 33 32-36 g/dL Red Cell Distribution Width 12.9 10.0-14.5 % Platelet Count 121 L 130-400 10^3/uL Mean Platelet Volume 12.3 H 9.0-12.2 fL Immature Granulocyte % (Auto) 0 % Neutrophils (%) (Auto) 69 42-75 % Lymphocytes (%) (Auto) 17 12-44 % Monocytes (%) (Auto) 10 0-12 % Eosinophils (%) (Auto) 4 0-10 % Basophils (%) (Auto) 0 0-10 % Neutrophils # (Auto) 6.5 1.8-7.8 10^3/uL Lymphocytes # (Auto) 1.6 1.0-4.0 10^3/uL Monocytes # (Auto) 0.9 0.0-1.0 10^3/uL Eosinophils # (Auto) 0.3 0.0-0.3 10^3/uL Basophils # (Auto) 0.0 0.0-0.1 10^3/uL Immature Granulocyte # (Auto) 0.0 0.0-0.1 10^3/uL Percent Immature Platelet Fraction 10.6 H 0.0-7.6 % Sodium Level 131 L 135-145 MMOL/L Potassium Level 4.2 3.6-5.0 MMOL/L Chloride Level 99 98-107 MMOL/L Carbon Dioxide Level 26 21-32 MMOL/L Anion Gap 6 5-14 MMOL/L Blood Urea Nitrogen 17 7-18 MG/DL Creatinine 0.83 0.60-1.30 MG/DL Estimat Glomerular Filtration Rate 71 BUN/Creatinine Ratio 20 Glucose Level 114 H 70-105 MG/DL Calcium Level 8.3 L 8.5-10.1 MG/DL Corrected Calcium 9.0 8.5-10.1 MG/DL Total Bilirubin 1.0 0.1-1.0 MG/DL Aspartate Amino Transf (AST/SGOT) 34 5-34 U/L Alanine Aminotransferase (ALT/SGPT) 13 0-55 U/L Alkaline Phosphatase 52 40-136 U/L Total Protein 6.0 L 6.4-8.2 GM/DL Albumin 3.1 L 3.2-4.5 GM/DL Vital Signs Date Time Temp Pulse Resp B/P (MAP) Pulse Ox O2 Delivery O2 Flow Rate FiO2 08/16/23 03:03 37.2 70 20 146/69 (94) 91 Nasal Cannula 2.00 08/15/23 23:08 36.2 58 18 107/64 (78) 91 Nasal Cannula 2.00 08/15/23 20:05 Room Air 08/15/23 19:43 38.0 66 18 116/52 (73) 92 Nasal Cannula 2.00 08/15/23 18:01 85 Room Air 08/15/23 16:35 38.5 08/15/23 15:23 38.7 81 18 136/63 (87) 91 Nasal Cannula 2.00 08/15/23 11:15 37.4 75 18 121/57 (78) 94 Room Air 08/15/23 08:00 Room Air 08/15/23 07:30 37.3 80 18 116/56 (76) 95 Nasal Cannula 2.00 I & O 08/16/23 07:00 Intake Total 3040 ml Output Total 1675 ml Balance 1365 ml R hip incision clean and dry no calf tenderness neg Samira's s/p R hip bipolar PT/OT await EVA KASPER MD Aug 16, 2023 06:31
[2023-08-16 07:19] VITALS: BP 108/57
[2023-08-16] MEDS: DOCUSATE SODIUM 100 MG CAPSULE PO SCH ×2 (09:35→20:30)
[2023-08-16] MEDS: SENNOSIDES 8.6 MG TABLET PO SCH ×2 (09:35→20:31)
--- NOTE | 2023-08-16 09:56 | Physical Therapy Daily Note ---
PT Daily Note-Current Subjective Patient sitting in chair upon PT arrival, agreeable to treatment. Patient rates pain at 0/10 currently at rest. Pain Section J - Health Conditions 1. Rarely or not at all 2. Occasionally 3. Frequently 4. Almost constantly 8. Unable to answer Pain Effect on Sleep: 1 Pain Interference with Therapy: 2 Pain Interference w/Day-to-Day: 1 Transfers SCALE: Activities may be completed with or without assistive devices. 1-Jkuqhnxxfh-cfkmpxc completes the activity by him/herself with no assistance from a helper. 5-Set-up or Clean-up Assistance-helper sets up or cleans up; patient completes activity. [place] assists only prior to or following the activity. 4-Supervision or Touching Assistance-helper provides verbal cues and/or touching/steadying and/or contact guard assistance as patient completes activity. Assistance may be provided throughout the activity or intermittently. 3-Partial/Moderate Assistance-helper does LESS THAN HALF the effort. [place] lifts, holds or supports trunk or limbs, but provides less than half the effort. 2-Substantial/Maximal Assistance-helper does MORE THAN HALF the effort. [place] lifts or holds trunk or limbs and provides more than half the effort. 2-Pajsctccr-fnywup does ALL the effort. Patient does none of the effort to complete the activity. Or, the assistance of 2 or more helpers is required for the patient to complete the activity. If activity was not attempted, code reason: 7-Patient Refused. 9-Not Applicable-not attempted and the patient did not perform the activity before the current illness, exacerbation or injury. 10-Not Attempted due to Environmental Limitations-(lack of equipment, weather restraints, etc.). 88-Not Attempted due to Medical Conditions or Safety Concerns. Sit to Stand (QC): 4 Chair/Jsf-mi-Tarsk Xfer(QC): 4 Weight Bearing Right Lower Extremity: Right Weight Bearing/Tolerated Left Lower Extremity: Left Full Weight Bearing Gait Training Does the Patient Walk?: Yes Distance: 80' Walk 10 feet (QC): 4 Walk 50 ft with 2 Turns(QC): 4 Gait Persons Needed: 1 Gait Assistive Device: FWW Exercises Supine Ex: Ankle pumps, Quad Set, Glut sets Supine Reps: 20 Seated Therapy Exercises: Long arc quads, Hamstring Curls Seated Reps: 10 Assessment Current Status: Good Progress Patient tolerated treatment well. Patient performs LE therapeutic exercise as listed above. Patient performs all observed transfers with SBA/CGA. Patient ambulates 80 feet with FWW with SBA/CGA, with verbal cues for safety, progression, posture. Patient in chair post treatment with all needs met, nursing notified, call light in reach. PT Intermediate Goals Sign Language Instructor Goals PT Intermediate Goals Time Frame: Aug 27, 2023 Roll Left & Right (QC): 6 Sit to Lying (QC): 6 Lying-Sitting on Side/Bed(QC): 6 Sit to Stand (QC): 6 Chair/Yhh-hf-Jlerp Xfer(QC): 6 Toilet Transfer (QC): 6 Does the Patient Walk: Yes Walk 10 feet (QC): 6 Walk 50ft with 2 Turns (QC): 4 Walk 150 ft (QC): 4 PT Plan Treatment/Plan Treatment Plan: Continue Plan of Care Treatment Plan: Bed Mobility, Education, Functional Activity [place], Functional Strength, Group Therapy, Gait, Safety, Therapeutic Exercise, Transfers Treatment Duration: Aug 27, 2023 Frequency: 11 times per week Estimated Hrs Per Day: .25 hour per day Patient and/or Family Agrees t: Yes Safety Risks/Education Patient Education: Gait Training, Transfer Techniques Teaching Recipient: Patient Teaching Methods: Demonstration, Discussion Response to Teaching: Verbalize Understanding, Return Demonstration Time Time In: 918 Time Out: 945 DATE: Aug 16, 2023 Total Billed Treatment Time: 27 Total Billed Treatment Visit, EX, GT BUDDY RIVERA PT Aug 16, 2023 09:56
[2023-08-16 11:27] VITALS: BP 111/55
--- NOTE | 2023-08-16 13:30 | Progress Note ---
Subjective Date Seen by a Provider: Aug 16, 2023 Time Seen by a Provider: 09:00 Subjective/Events-last exam Patient doing much better Pain is improved Decreased oxycodone and added Ultram and hydrocodone due to oversedation Inpatient rehab candidate Objective Exam Last Set of Vital Signs Vital Signs Date Time Temp Pulse Resp B/P (MAP) Pulse Ox O2 Delivery O2 Flow Rate FiO2 08/16/23 11:27 36.9 68 16 111/55 (73) 97 Room Air 08/16/23 03:03 2.00 Capillary Refill : I&O Intake and Output 08/15/23 23:59 Intake Total 2840 ml Output Total 1175 ml Balance 1665 ml Intake Oral 1840 ml IV Total 1000 ml Output Urine Total 1175 ml # Bowel Movements 1 General: Alert, Oriented X3, Cooperative, No Acute Distress Lungs: Clear to Auscultation, Normal Air Movement Heart: Regular Rate, Normal S1, Normal S2, No Murmurs Psych/Mental Status: Mental Status NL, Mood NL Results Lab Laboratory Tests 08/16/23 05:33: White Blood Count 9.4, Red Blood Count 3.66L, Hemoglobin 11.2L, Hematocrit 34L, Mean Corpuscular Volume 92, Mean Corpuscular Hemoglobin 31, Mean Corpuscular Hemoglobin Concent 33, Red Cell Distribution Width 12.9, Platelet Count 121L, Mean Platelet Volume 12.3H, Immature Granulocyte % (Auto) 0, Neutrophils (%) (Auto) 69, Lymphocytes (%) (Auto) 17, Monocytes (%) (Auto) 10, Eosinophils (%) (Auto) 4, Basophils (%) (Auto) 0, Neutrophils # (Auto) 6.5, Lymphocytes # (Auto) 1.6, Monocytes # (Auto) 0.9, Eosinophils # (Auto) 0.3, Basophils # (Auto) 0.0, Immature Granulocyte # (Auto) 0.0, Percent Immature Platelet Fraction 10.6H, Sodium Level 131L, Potassium Level 4.2, Chloride Level 99, Carbon Dioxide Level 26, Anion Gap 6, Blood Urea Nitrogen 17, Creatinine 0.83, Estimat Glomerular Filtration Rate 71, BUN/Creatinine Ratio 20, Glucose Level 114H, Calcium Level 8.3L, Corrected Calcium 9.0, Total Bilirubin 1.0, Aspartate Amino Transf (AST/SGOT) 34, Alanine Aminotransferase (ALT/SGPT) 13, Alkaline Phosphatase 52, Total Protein 6.0L, Albumin 3.1L Microbiology 08/13/23 MRSA Screen - Final, Complete MRSA not isolated Assessment/Plan Assessment/Plan Assess & Plan/Chief Complaint Continue recovery Monitor labs PT and OT ARU Clinical Quality Measures DVT/VTE Risk/Contraindication: Contraindications-Pharm: Other *list below* Other: OR EDDI CURRIE DO Aug 16, 2023 13:29
[2023-08-16 15:46] VITALS: BP 131/67
[2023-08-16] MEDS: ACETAMINOPHEN 325 MG TABLET PO PRN (17:19)
[2023-08-16 20:28] VITALS: BP 90/48
[2023-08-16] MEDS: amLODIPine 10 MG TABLET PO SCH (20:30)
[2023-08-16 23:09] VITALS: BP 134/62
[2023-08-17 05:39] LABS: MEAN PLATELET VOLUME 12.1 fL (9.0-12.2)
[2023-08-17 05:42] LABS: BASOPHILS % (AUTO) 0 % (0-10); EOSINOPHILS # (AUTO) 0.3 10^3/uL (0.0-0.3); EOSINOPHILS % (AUTO) 3 % (0-10); HEMATOCRIT 32 % (35-52); HEMOGLOBIN 10.6 g/dL (11.5-16.0); LYMPHOCYTES # (AUTO) 1.4 10^3/uL (1.0-4.0); LYMPHOCYTES % (AUTO) 17 % (12-44); MEAN CORPUSCULAR HEMOGLOBIN 30 pg (25-34); MEAN CORPUSCULAR HGB CONC 33 g/dL (32-36); MEAN CORPUSCULAR VOLUME 91 fL (80-99); MONOCYTES # (AUTO) 0.8 10^3/uL (0.0-1.0); MONOCYTES % (AUTO) 10 % (0-12); NEUTROPHILS # (AUTO) 5.8 10^3/uL (1.8-7.8); NEUTROPHILS % (AUTO) 70 % (42-75); PLATELET COUNT 127 10^3/uL (130-400); WHITE BLOOD COUNT 8.3 10^3/uL (4.3-11.0)
[2023-08-17 05:51] LABS: POTASSIUM 3.8 MMOL/L (3.6-5.0)
[2023-08-17 05:53] LABS: CALCIUM 8.3 MG/DL (8.5-10.1)
[2023-08-17 05:56] LABS: BILIRUBIN,TOTAL 0.6 MG/DL (0.1-1.0)
[2023-08-17 05:57] LABS: CREATININE SERUM 0.7 MG/DL (0.60-1.30)
[2023-08-17 07:38] VITALS: BP 123/66
--- NOTE | 2023-08-17 07:52 | Progress Note ---
Standard Progress Note Progress Notes/Assess & Plan Date Seen by a Provider: Aug 17, 2023 Time Seen by a Provider: 07:44 Progress/Assessment & Plan no complaints radiograph--HW well positioned without fracture Laboratory Tests Test 08/15/23 04:47 Range/Units White Blood Count 7.9 4.3-11.0 10^3/uL Red Blood Count 3.82 3.80-5.11 10^6/uL Hemoglobin 11.4 L 11.5-16.0 g/dL Hematocrit 35 35-52 % Mean Corpuscular Volume 91 80-99 fL Mean Corpuscular Hemoglobin 30 25-34 pg Mean Corpuscular Hemoglobin Concent 33 32-36 g/dL Red Cell Distribution Width 12.5 10.0-14.5 % Platelet Count 124 L 130-400 10^3/uL Mean Platelet Volume 12.2 9.0-12.2 fL Immature Granulocyte % (Auto) 0 % Neutrophils (%) (Auto) 64 42-75 % Lymphocytes (%) (Auto) 22 12-44 % Monocytes (%) (Auto) 10 0-12 % Eosinophils (%) (Auto) 4 0-10 % Basophils (%) (Auto) 0 0-10 % Neutrophils # (Auto) 5.0 1.8-7.8 10^3/uL Lymphocytes # (Auto) 1.7 1.0-4.0 10^3/uL Monocytes # (Auto) 0.8 0.0-1.0 10^3/uL Eosinophils # (Auto) 0.3 0.0-0.3 10^3/uL Basophils # (Auto) 0.0 0.0-0.1 10^3/uL Immature Granulocyte # (Auto) 0.0 0.0-0.1 10^3/uL Percent Immature Platelet Fraction 9.6 H 0.0-7.6 % Sodium Level 135 135-145 MMOL/L Potassium Level 4.1 3.6-5.0 MMOL/L Chloride Level 102 98-107 MMOL/L Carbon Dioxide Level 26 21-32 MMOL/L Anion Gap 7 5-14 MMOL/L Blood Urea Nitrogen 9 7-18 MG/DL Creatinine 0.77 0.60-1.30 MG/DL Estimat Glomerular Filtration Rate 78 BUN/Creatinine Ratio 12 Glucose Level 94 70-105 MG/DL Calcium Level 7.9 L 8.5-10.1 MG/DL Corrected Calcium 8.6 8.5-10.1 MG/DL Total Bilirubin 0.7 0.1-1.0 MG/DL Aspartate Amino Transf (AST/SGOT) 24 5-34 U/L Alanine Aminotransferase (ALT/SGPT) 13 0-55 U/L Alkaline Phosphatase 46 40-136 U/L Total Protein 5.7 L 6.4-8.2 GM/DL Albumin 3.1 L 3.2-4.5 GM/DL Vital Signs Date Time Temp Pulse Resp B/P (MAP) Pulse Ox O2 Delivery O2 Flow Rate FiO2 08/15/23 07:30 37.3 80 18 116/56 (76) 95 Nasal Cannula 2.00 08/15/23 04:06 37.4 75 16 129/60 (83) 93 Nasal Cannula 2.00 08/14/23 23:50 37.5 77 16 108/53 (71) 94 Nasal Cannula 2.00 08/14/23 20:33 98 Nasal Cannula 2.00 08/14/23 20:00 Room Air 08/14/23 19:30 36.7 76 16 120/58 (78) 96 Room Air 08/14/23 16:40 Nasal Cannula 2.00 08/14/23 16:30 OxyMask 2.00 08/14/23 16:30 36.7 16 127/54 (78) 93 Nasal Cannula 2.00 08/14/23 16:20 14 133/55 (81) 97 OxyMask 2.00 08/14/23 16:15 OxyMask 2.00 08/14/23 16:10 16 145/65 (91) 99 OxyMask 2.00 08/14/23 16:00 OxyMask 4.00 08/14/23 16:00 16 147/65 (92) 97 OxyMask 4.00 08/14/23 15:50 20 148/67 (94) 99 OxyMask 4.00 08/14/23 15:43 OxyMask 4.00 08/14/23 15:43 36.4 25 153/75 (101) 100 OxyMask 4.00 08/14/23 12:33 37.4 71 17 116/58 (77) 91 Nasal Cannula 2.00 08/14/23 08:35 Room Air 08/14/23 08:27 37.4 68 19 126/61 (82) 91 Room Air I & O 08/15/23 07:00 Intake Total 1550 ml Output Total 2950 ml Balance -1400 ml RLE--dressing intact intact DF and PF of toes and ankle pulses symmetric sensation intact to light touch throughout s/p R hip bipolar mobilize EULA Conner Final Diagnosis no complaints Vital Signs Date Time Temp Pulse Resp B/P (MAP) Pulse Ox O2 Delivery O2 Flow Rate FiO2 08/16/23 23:09 37.2 75 18 134/62 (86) 97 Nasal Cannula 2.00 08/16/23 20:30 Room Air 08/16/23 20:28 37.3 79 16 90/48 (62) 97 Nasal Cannula 2.00 08/16/23 19:14 Nasal Cannula 2.00 08/16/23 18:30 36.9 08/16/23 18:30 36.9 08/16/23 17:19 38.4 08/16/23 15:46 38.4 87 18 131/67 (88) 97 Nasal Cannula 2.00 08/16/23 11:27 36.9 68 16 111/55 (73) 97 Room Air 08/16/23 08:00 Room Air I & O 08/17/23 07:00 Intake Total 1630 ml Output Total 2250 ml Balance -620 ml Laboratory Tests Test 08/17/23 05:19 Range/Units White Blood Count 8.3 4.3-11.0 10^3/uL Red Blood Count 3.50 L 3.80-5.11 10^6/uL Hemoglobin 10.6 L 11.5-16.0 g/dL Hematocrit 32 L 35-52 % Mean Corpuscular Volume 91 80-99 fL Mean Corpuscular Hemoglobin 30 25-34 pg Mean Corpuscular Hemoglobin Concent 33 32-36 g/dL Red Cell Distribution Width 12.9 10.0-14.5 % Platelet Count 127 L 130-400 10^3/uL Mean Platelet Volume 12.1 9.0-12.2 fL Immature Granulocyte % (Auto) 0 % Neutrophils (%) (Auto) 70 42-75 % Lymphocytes (%) (Auto) 17 12-44 % Monocytes (%) (Auto) 10 0-12 % Eosinophils (%) (Auto) 3 0-10 % Basophils (%) (Auto) 0 0-10 % Neutrophils # (Auto) 5.8 1.8-7.8 10^3/uL Lymphocytes # (Auto) 1.4 1.0-4.0 10^3/uL Monocytes # (Auto) 0.8 0.0-1.0 10^3/uL Eosinophils # (Auto) 0.3 0.0-0.3 10^3/uL Basophils # (Auto) 0.0 0.0-0.1 10^3/uL Immature Granulocyte # (Auto) 0.0 0.0-0.1 10^3/uL Percent Immature Platelet Fraction 10.2 H 0.0-7.6 % Sodium Level 136 135-145 MMOL/L Potassium Level 3.8 3.6-5.0 MMOL/L Chloride Level 102 98-107 MMOL/L Carbon Dioxide Level 28 21-32 MMOL/L Anion Gap 6 5-14 MMOL/L Blood Urea Nitrogen 12 7-18 MG/DL Creatinine 0.70 0.60-1.30 MG/DL Estimat Glomerular Filtration Rate 87 BUN/Creatinine Ratio 17 Glucose Level 105 70-105 MG/DL Calcium Level 8.3 L 8.5-10.1 MG/DL Corrected Calcium 9.1 8.5-10.1 MG/DL Total Bilirubin 0.6 0.1-1.0 MG/DL Aspartate Amino Transf (AST/SGOT) 37 H 5-34 U/L Alanine Aminotransferase (ALT/SGPT) 15 0-55 U/L Alkaline Phosphatase 62 40-136 U/L Total Protein 6.0 L 6.4-8.2 GM/DL Albumin 3.0 L 3.2-4.5 GM/DL R hip dressing clean and dry no calf tenderness neg Samira's s/p R hip bipolar to IRU today EVA JAIME MD Aug 17, 2023 07:52
[2023-08-17] MEDS: DOCUSATE SODIUM 100 MG CAPSULE PO SCH ×2 (08:14→20:37)
[2023-08-17] MEDS: SENNOSIDES 8.6 MG TABLET PO SCH ×2 (08:15→20:37)
[2023-08-17] MEDS ORDERED: LACTULOSE SYRUP 10GM/15ML 30ML UDC PO ONE (09:30)
[2023-08-17] MEDS ORDERED: SENNOSIDES 8.6 MG TABLET PO ONE (09:30)
--- NOTE | 2023-08-17 09:31 | Progress Note ---
Subjective Date Seen by a Provider: Aug 17, 2023 Time Seen by a Provider: 11:00 Subjective/Events-last exam Much improved ARU tomorrow No falls No BM yet so meds ordered Review of Systems General: Fatigue, Malaise Gastrointestinal: Constipation Musculoskeletal: leg pain Objective Exam Last Set of Vital Signs Vital Signs Date Time Temp Pulse Resp B/P (MAP) Pulse Ox O2 Delivery O2 Flow Rate FiO2 08/17/23 07:38 37.3 86 20 123/66 (85) 96 Room Air 08/16/23 23:09 2.00 Capillary Refill : I&O Intake and Output 08/16/23 23:59 Intake Total 1780 ml Output Total 2600 ml Balance -820 ml Intake Oral 1780 ml Output Urine Total 2600 ml General: Alert, Oriented X3, Cooperative, No Acute Distress Lungs: Clear to Auscultation, Normal Air Movement Heart: Regular Rate, Normal S1, Normal S2, No Murmurs Psych/Mental Status: Mental Status NL, Mood NL Results Lab Laboratory Tests 08/17/23 05:19: White Blood Count 8.3, Red Blood Count 3.50L, Hemoglobin 10.6L, Hematocrit 32L, Mean Corpuscular Volume 91, Mean Corpuscular Hemoglobin 30, Mean Corpuscular Hemoglobin Concent 33, Red Cell Distribution Width 12.9, Platelet Count 127L, Mean Platelet Volume 12.1, Immature Granulocyte % (Auto) 0, Neutrophils (%) (Auto) 70, Lymphocytes (%) (Auto) 17, Monocytes (%) (Auto) 10, Eosinophils (%) (Auto) 3, Basophils (%) (Auto) 0, Neutrophils # (Auto) 5.8, Lymphocytes # (Auto) 1.4, Monocytes # (Auto) 0.8, Eosinophils # (Auto) 0.3, Basophils # (Auto) 0.0, Immature Granulocyte # (Auto) 0.0, Percent Immature Platelet Fraction 10.2H, Sodium Level 136, Potassium Level 3.8, Chloride Level 102, Carbon Dioxide Level 28, Anion Gap 6, Blood Urea Nitrogen 12, Creatinine 0.70, Estimat Glomerular Filtration Rate 87, BUN/Creatinine Ratio 17, Glucose Level 105, Calcium Level 8.3L, Corrected Calcium 9.1, Total Bilirubin 0.6, Aspartate Amino Transf (AST/SGOT) 37H, Alanine Aminotransferase (ALT/SGPT) 15, Alkaline Phosphatase 62, Total Protein 6.0L, Albumin 3.0L Microbiology 08/13/23 MRSA Screen - Final, Complete MRSA not isolated Assessment/Plan Assessment/Plan Assess & Plan/Chief Complaint Continue recovery Monitor labs PT and OT ARU Clinical Quality Measures DVT/VTE Risk/Contraindication: Contraindications-Pharm: Other *list below* Other: OR EDDI CURRIE DO Aug 17, 2023 09:31
--- NOTE | 2023-08-17 10:43 | Physical Therapy Daily Note ---
PT Daily Note-Current Subjective Patient agrees to therapy. Pain Numeric Pain Scale: 5-Moderate Pain Location: Right Location Body Site: Knee Pain Description: Acute Section J - Health Conditions 1. Rarely or not at all 2. Occasionally 3. Frequently 4. Almost constantly 8. Unable to answer Pain Effect on Sleep: 1 Pain Interference with Therapy: 1 Pain Interference w/Day-to-Day: 1 Transfers SCALE: Activities may be completed with or without assistive devices. 2-Qzisgkeptu-qxzxowi completes the activity by him/herself with no assistance from a helper. 5-Set-up or Clean-up Assistance-helper sets up or cleans up; patient completes activity. [place] assists only prior to or following the activity. 4-Supervision or Touching Assistance-helper provides verbal cues and/or touching/steadying and/or contact guard assistance as patient completes activity. Assistance may be provided throughout the activity or intermittently. 3-Partial/Moderate Assistance-helper does LESS THAN HALF the effort. [place] lifts, holds or supports trunk or limbs, but provides less than half the effort. 2-Substantial/Maximal Assistance-helper does MORE THAN HALF the effort. [place] lifts or holds trunk or limbs and provides more than half the effort. 7-Ojetzmvsl-lhptwc does ALL the effort. Patient does none of the effort to complete the activity. Or, the assistance of 2 or more helpers is required for the patient to complete the activity. If activity was not attempted, code reason: 7-Patient Refused. 9-Not Applicable-not attempted and the patient did not perform the activity before the current illness, exacerbation or injury. 10-Not Attempted due to Environmental Limitations-(lack of equipment, weather restraints, etc.). 88-Not Attempted due to Medical Conditions or Safety Concerns. Sit to Stand (QC): 4 Chair/Cfv-zo-Egtto Xfer(QC): 4 Weight Bearing Right Lower Extremity: Right Weight Bearing/Tolerated Left Lower Extremity: Left Full Weight Bearing Gait Training Distance: 180' Walk 10 feet (QC): 4 Walk 50 ft with 2 Turns(QC): 4 Walk 150 ft (QC): 4 Gait Assistive Device: FWW CGA for safety/functional, antalgic gait sequence Exercises Seated Therapy Exercises: Long arc quads Seated Reps: 15 Assessment Patient progressing with treatment plan and will transfer to [facility] tomorrow per patient report. PT to increase activity as tolerated by patient. PT Longterm Goals Wall Steamer Goals PT Wall Steamer Goals Time Frame: Aug 27, 2023 Roll Left & Right (QC): 6 Sit to Lying (QC): 6 Lying-Sitting on Side/Bed(QC): 6 Sit to Stand (QC): 6 Chair/Mxw-ym-Yfmjv Xfer(QC): 6 Toilet Transfer (QC): 6 Does the Patient Walk: Yes Walk 10 feet (QC): 6 Walk 50ft with 2 Turns (QC): 4 Walk 150 ft (QC): 4 PT Plan Treatment/Plan Treatment Plan: Continue Plan of Care Treatment Plan: Bed Mobility, Education, Functional Activity [place], Functional Strength, Group Therapy, Gait, Safety, Therapeutic Exercise, Transfers Treatment Duration: Aug 27, 2023 Frequency: 11 times per week Estimated Hrs Per Day: .25 hour per day Patient and/or Family Agrees t: Yes Time Time In: 1014 Time Out: 1030 DATE: Aug 17, 2023 Total Billed Treatment Time: 16 Total Billed Treatment 1 visit GT 16 min BERTRAND CARNES PT Aug 17, 2023 10:43
--- NOTE | 2023-08-17 11:01 | Occupational Therapy Eval ---
OT Evaluation-General/PLF Medical Diagnosis Admission Date Aug 13, 2023 at 15:30 Medical Diagnosis: Right femur fracture Onset Date: Aug 13, 2023 Therapy Diagnosis Therapy Diagnosis: weakness Height/Weight Height (Feet): 5 Height (Inches): 1 Weight (Pounds): 150 Precautions Precautions/Isolations: Standard Precautions Weight Bear Status Weight Bearing Restriction: Weight Bearing/Tolerated Location Restriction: R LE Referral Physician: Dr. Her Referral Reason: Evaluation/Treatment Medical History Additional Medical History 82-year-old female with a history of hypertension and hyperlipidemia who sees Dr. Arndt who presented to the ER after a fall while making cookies with her granddaughter. Apparently she fell on the floor and sustained a right femoral neck fracture which will be repaired tomorrow by Dr Her. BP is stable. Social History Home: Single Level Current Living Status: Other Family Entry Into Home: Level Entry Steps Into Home: 0 ADL-Prior Level of Function SCALE: Activities may be completed with or without assistive devices. 4-Rpjugnydbb-kpaxumn completes the activity by him/herself with no assistance from a helper. 5-Set-up or Clean-up Assistance-helper sets up or cleans up; patient completes activity. [place] assists only prior to or following the activity. 4-Supervision or Touching Assistance-helper provides verbal cues and/or touching/steadying and/or contact guard assistance as patient completes activity. Assistance may be provided throughout the activity or intermittently. 3-Partial/Moderate Assistance-helper does LESS THAN HALF the effort. [place] lifts, holds or supports trunk or limbs, but provides less than half the effort. 2-Substantial/Maximal Assistance-helper does MORE THAN HALF the effort. [place] lifts or holds trunk or limbs and provides more than half the effort. 8-Mmdjytjkx-cwlxji does ALL the effort. Patient does none of the effort to comp lete the activity. Or, the assistance of 2 or more helpers is required for the patient to complete the activity. If activity was not attempted, code reason: 7-Patient Refused. 9-Not Applicable-not attempted and the patient did not perform the activity before the current illness, exacerbation or injury. 10-Not Attempted due to Environmental Limitations-(lack of equipment, weather restraints, etc.). 88-Not Attempted due to Medical Conditions or Safety Concerns. Self Care: Needed Some Help (w/ socks) Functional Cognition: Needed Some Help Drive Self: No OT Current Status Subjective AGREEABLE TO PARTICIPATE Pain Numeric Pain Scale: 5-Moderate Pain (w/ WB ) Mental Status/Objective Patient Orientation: Person, Place, Situation Current Upper Extremity ROM BUE ROM WFLs Upper Extremity Coordination WFLs Upper Extremity Strength 4/5 grossly ADL-Treatment Eating (QC): 6 Oral Hygiene (QC): 5 Shower/Bathe Self (QC): 7 Upper Body Dressing (QC): 4 Lower Body Dressing (QC): 3 On/Off Footwear (QC): 1 Toileting Hygiene (QC): 3 Education OT Patient Education: Correct positioning, Instructions to caregiver, Modified ADL techniques, Progress toward Goal/Update tx plan, Purpose of tx/functional activities, Reviewed precautions, Rehab process, Safety issues, Transfer techniques Teaching Recipient: Patient Teaching Methods: Demonstration, Discussion Response to Teaching: Reinforcement Needed OT Senior Living Goals Plumber Assistant Goals 1=Demonstrate adherence to instructed precautions during ADL tasks. 2=Patient will verbalize/demonstrate understanding of assistive devices/modifications for ADL. 3=Patient will improve strength/tolerance for activity to enable patient to perform ADL's. OT Education/Plan Problem List/Assessment Assessment: Decreased Activ Tolerance, Decreased Safety Aware, Decreased UE Strength, Impaired Cognition, Impaired Funct Balance, Impaired Self-Care Skills Discharge Recommendations Plan/Recommendations: Continue POC Treatment Plan/Plan of Care Treatment,Training & Education: Yes Patient would benefit from OT for education, treatment and training to promote independence in ADL's, mobility, safety and/or upper extremity function for ADL's. Plan of Care: ADL Retraining, Functional Mobility, Group Exercise/Act as Ind, UE Funct Exercise/Act Treatment Duration: Aug 27, 2023 Frequency: 3 times per week (3-5 tmes per week) Estimated Hrs Per Day: .25 hour per day Agreement: Yes Rehab Potential: Fair Time Start Time: 10:15 Stop Time: 10:30 DATE: Aug 17, 2023 Total Time Billed (hr/min): 15 Billed Treatment Time EVM 15 min MARK DELGADILLO OT Aug 17, 2023 11:01
--- NOTE | 2023-08-17 14:11 | Physical Therapy Progress Note ---
Therapy Progress Note Patient declined p.m. treatment due to fatigue. Patient to transfer to [facility] tomorrow per HEATH. BERTRAND CARNES PT Aug 17, 2023 14:11
[2023-08-17 16:09] VITALS: BP 110/51
[2023-08-17 20:34] VITALS: BP 108/53
[2023-08-17] MEDS: amLODIPine 10 MG TABLET PO SCH (20:37)
[2023-08-17] MEDS: LACTULOSE SYRUP 10GM/15ML 30ML UDC PO SCH (20:37)
[2023-08-17] MEDS: ACETAMINOPHEN 325 MG TABLET PO PRN (20:47)
[2023-08-17 23:28] VITALS: BP 134/74
[2023-08-18 05:58] LABS: BASOPHILS % (AUTO) 1 % (0-10); EOSINOPHILS # (AUTO) 0.4 10^3/uL (0.0-0.3); EOSINOPHILS % (AUTO) 6 % (0-10); HEMATOCRIT 31 % (35-52); HEMOGLOBIN 10.4 g/dL (11.5-16.0); LYMPHOCYTES # (AUTO) 1.5 10^3/uL (1.0-4.0); LYMPHOCYTES % (AUTO) 21 % (12-44); MEAN CORPUSCULAR HEMOGLOBIN 31 pg (25-34); MEAN CORPUSCULAR HGB CONC 34 g/dL (32-36); MEAN CORPUSCULAR VOLUME 91 fL (80-99); MEAN PLATELET VOLUME 11.8 fL (9.0-12.2); MONOCYTES # (AUTO) 0.6 10^3/uL (0.0-1.0); MONOCYTES % (AUTO) 8 % (0-12); NEUTROPHILS # (AUTO) 4.4 10^3/uL (1.8-7.8); NEUTROPHILS % (AUTO) 64 % (42-75); PLATELET COUNT 151 10^3/uL (130-400); WHITE BLOOD COUNT 6.9 10^3/uL (4.3-11.0)
[2023-08-18 06:13] LABS: POTASSIUM 3.8 MMOL/L (3.6-5.0)
[2023-08-18 06:14] LABS: CALCIUM 8.3 MG/DL (8.5-10.1)
[2023-08-18 06:15] LABS: TOTAL PROTEIN 5.9 GM/DL (6.4-8.2)
[2023-08-18 06:17] LABS: BILIRUBIN,TOTAL 0.5 MG/DL (0.1-1.0)
[2023-08-18 06:19] LABS: CREATININE SERUM 0.65 MG/DL (0.60-1.30)
--- NOTE | 2023-08-18 06:38 | Discharge Summary ---
Diagnosis/Chief Complaint Date of Admission Aug 13, 2023 at 15:30 Date of Discharge Discharge Date: Aug 18, 2023 Discharge Diagnosis Right hip fracture Hyperlipidemia Hypertension Postop anemia from acute blood loss Discharge Summary Discharge Physical Examination Allergies: Coded Allergies: lisinopril (Verified Allergy, Severe, angioedema, 08/13/23) pseudoephedrine HCl (Verified Allergy, Unknown, 08/13/23) famotidine (Verified Adverse Reaction, Mild, 08/13/23) pt started to feel short of breath after dose of pepcid Vitals & I&Os Vital Signs Date Time Temp Pulse Resp B/P (MAP) Pulse Ox O2 Delivery O2 Flow Rate FiO2 08/18/23 10:13 37.4 82 16 116/67 95 Room Air 2.00 08/17/23 19:43 21 General Appearance: Alert, Oriented X3, Cooperative Respiratory: Clear to Auscultation Cardiovascular: Regular Rate Psych/Mental Status: Mental Status NL Hospital Course Was the Problem List Reviewed?: Yes Patient had an uneventful hospital course after she was admitted following a fall and subsequent right femoral neck fracture. Patient remained stable. Pain was controlled. Bowel function was slow so laxatives initiated. Patient was deemed stable to go to inpatient rehab. Labs (last 24 hrs) Laboratory Tests 08/13/23 14:45: White Blood Count 8.4, Red Blood Count 4.51, Hemoglobin 13.7, Hematocrit 41, M arely Corpuscular Volume 91, Mean Corpuscular Hemoglobin 30, Mean Corpuscular Hemoglobin Concent 34, Red Cell Distribution Width 12.8, Platelet Count 171, Mean Platelet Volume 11.8, Immature Granulocyte % (Auto) 0, Neutrophils (%) (Auto) 68, Lymphocytes (%) (Auto) 23, Monocytes (%) (Auto) 7, Eosinophils (%) (Auto) 3, Basophils (%) (Auto) 0, Neutrophils # (Auto) 5.7, Lymphocytes # (Auto) 1.9, Monocytes # (Auto) 0.6, Eosinophils # (Auto) 0.2, Basophils # (Auto) 0.0, Immature Granulocyte # (Auto) 0.0, Sodium Level 137, Potassium Level 4.3, Chloride Level 105, Carbon Dioxide Level 24, Anion Gap 8, Blood Urea Nitrogen 22H, Creatinine 0.86, Estimat Glomerular Filtration Rate 68, BUN/Creatinine Ratio 26, Glucose Level 101, Calcium Level 9.4 08/14/23 04:53: White Blood Count 7.2, Red Blood Count 3.77L, Hemoglobin 11.5, Hematocrit 35, Mean Corpuscular Volume 92, Mean Corpuscular Hemoglobin 31, Mean Corpuscular Hemoglobin Concent 33, Red Cell Distribution Width 12.7, Platelet Count 125L, Mean Platelet Volume 12.1, Immature Granulocyte % (Auto) 0, Neutrophils (%) (Auto) 54, Lymphocytes (%) (Auto) 29, Monocytes (%) (Auto) 10, Eosinophils (%) (Auto) 6, Basophils (%) (Auto) 0, Neutrophils # (Auto) 3.9, Lymphocytes # (Auto) 2.1, Monocytes # (Auto) 0.7, Eosinophils # (Auto) 0.4H, Basophils # (Auto) 0.0, Immature Granulocyte # (Auto) 0.0, Sodium Level 139, Potassium Level 4.1, Chloride Level 109H, Carbon Dioxide Level 25, Anion Gap 5, Blood Urea Nitrogen 14, Creatinine 0.77, Estimat Glomerular Filtration Rate 78, BUN/Creatinine Ratio 18, Glucose Level 94, Calcium Level 8.2L, Percent Immature Platelet Fraction 8.3H, Corrected Calcium 8.8, Total Bilirubin 0.9, Aspartate Amino Transf (AST/SGOT) 19, Alanine Aminotransferase (ALT/SGPT) 14, Alkaline Phosphatase 48, Total Protein 5.9L, Albumin 3.2 08/15/23 04:47: White Blood Count 7.9, Red Blood Count 3.82, Hemoglobin 11.4L, Hematocrit 35, Mean Corpuscular Volume 91, Mean Corpuscular Hemoglobin 30, Mean Corpuscular Hemoglobin Concent 33, Red Cell Distribution Width 12.5, Platelet Count 124L, Mean Platelet Volume 12.2, Immature Granulocyte % (Auto) 0, Neutrophils (%) (Auto) 64, Lymphocytes (%) (Auto) 22, Monocytes (%) (Auto) 10, Eosinophils (%) (Auto) 4, Basophils (%) (Auto) 0, Neutrophils # (Auto) 5.0, Lymphocytes # (Auto) 1.7, Monocytes # (Auto) 0.8, Eosinophils # (Auto) 0.3, Basophils # (Auto) 0.0, Immature Granulocyte # (Auto) 0.0, Sodium Level 135, Potassium Level 4.1, Chloride Level 102, Carbon Dioxide Level 26, Anion Gap 7, Blood Urea Nitrogen 9, Creatinine 0.77, Estimat Glomerular Filtration Rate 78, BUN/Creatinine Ratio 12, Glucose Level 94, Calcium Level 7.9L, Percent Immature Platelet Fraction 9.6H, Corrected Calcium 8.6, Total Bilirubin 0.7, Aspartate Amino Transf (AST/SGOT) 24, Alanine Aminotransferase (ALT/SGPT) 13, Alkaline Phosphatase 46, Total Protein 5.7L, Albumin 3.1L 08/16/23 05:33: White Blood Count 9.4, Red Blood Count 3.66L, Hemoglobin 11.2L, Hematocrit 34L, Mean Corpuscular Volume 92, Mean Corpuscular Hemoglobin 31, Mean Corpuscular Hemoglobin Concent 33, Red Cell Distribution Width 12.9, Platelet Count 121L, Mean Platelet Volume 12.3H, Immature Granulocyte % (Auto) 0, Neutrophils (%) (Auto) 69, Lymphocytes (%) (Auto) 17, Monocytes (%) (Auto) 10, Eosinophils (%) (Auto) 4, Basophils (%) (Auto) 0, Neutrophils # (Auto) 6.5, Lymphocytes # (Auto) 1.6, Monocytes # (Auto) 0.9, Eosinophils # (Auto) 0.3, Basophils # (Auto) 0.0, Immature Granulocyte # (Auto) 0.0, Sodium Level 131L, Potassium Level 4.2, Chloride Level 99, Carbon Dioxide Level 26, Anion Gap 6, Blood Urea Nitrogen 17, Creatinine 0.83, Estimat Glomerular Filtration Rate 71, BUN/Creatinine Ratio 20, Glucose Level 114H, Calcium Level 8.3L, Percent Immature Platelet Fraction 10.6H , Corrected Calcium 9.0, Total Bilirubin 1.0, Aspartate Amino Transf (AST/SGOT) 34, Alanine Aminotransferase (ALT/SGPT) 13, Alkaline Phosphatase 52, Total Protein 6.0L, Albumin 3.1L 08/17/23 05:19: White Blood Count 8.3, Red Blood Count 3.50L, Hemoglobin 10.6L, Hematocrit 32L, Mean Corpuscular Volume 91, Mean Corpuscular Hemoglobin 30, Mean Corpuscular H emoglobin Concent 33, Red Cell Distribution Width 12.9, Platelet Count 127L, Mean Platelet Volume 12.1, Immature Granulocyte % (Auto) 0, Neutrophils (%) (Auto) 70, Lymphocytes (%) (Auto) 17, Monocytes (%) (Auto) 10, Eosinophils (%) (Auto) 3, Basophils (%) (Auto) 0, Neutrophils # (Auto) 5.8, Lymphocytes # (Auto) 1.4, Monocytes # (Auto) 0.8, Eosinophils # (Auto) 0.3, Basophils # (Auto) 0.0, Immature Granulocyte # (Auto) 0.0, Percent Immature Platelet Fraction 10.2H, S odium Level 136, Potassium Level 3.8, Chloride Level 102, Carbon Dioxide Level 28, Anion Gap 6, Blood Urea Nitrogen 12, Creatinine 0.70, Estimat Glomerular Filtration Rate 87, BUN/Creatinine Ratio 17, Glucose Level 105, Calcium Level 8.3L, Corrected Calcium 9.1, Total Bilirubin 0.6, Aspartate Amino Transf (AST/SGOT) 37H, Alanine Aminotransferase (ALT/SGPT) 15, Alkaline Phosphatase 62, Total Protein 6.0L, Albumin 3.0L 08/18/23 05:32: White Blood Count 6.9, Red Blood Count 3.38L, Hemoglobin 10.4L, Hematocrit 31L, Mean Corpuscular Volume 91, Mean Corpuscular Hemoglobin 31, Mean Corpuscular Hemoglobin Concent 34, Red Cell Distribution Width 12.9, Platelet Count 151, Mean Platelet Volume 11.8, Immature Granulocyte % (Auto) 0, Neutrophils (%) ( Auto) 64, Lymphocytes (%) (Auto) 21, Monocytes (%) (Auto) 8, Eosinophils (%) (Auto) 6, Basophils (%) (Auto) 1, Neutrophils # (Auto) 4.4, Lymphocytes # (Auto) 1.5, Monocytes # (Auto) 0.6, Eosinophils # (Auto) 0.4H, Basophils # (Auto) 0.0, Immature Granulocyte # (Auto) 0.0, Sodium Level 140, Potassium Level 3.8, Chloride Level 105, Carbon Dioxide Level 30, Anion Gap 5, Blood Urea Nitrogen 11, Creatinine 0.65, Estimat Glomerular Filtration Rate 89, BUN/Creatinine Ratio 17, Glucose Level 103, Calcium Level 8.3L, Corrected Calcium 9.1, Total Bilirubin 0.5, Aspartate Amino Transf (AST/SGOT) 35H, Alanine Aminotransferase (ALT/SGPT) 19, Alkaline Phosphatase 61, Total Protein 5.9L, Albumin 3.0L Microbiology 08/13/23 MRSA Screen - Final, Complete MRSA not isolated Pending Labs Microbiology Date/Time Source Procedure Growth Status 08/13/23 16:40 Nasal MRSA Screen - Final MRSA not isolated Complete Laboratory Tests 08/13/23 14:45: White Blood Count 8.4, Red Blood Count 4.51, Hemoglobin 13.7, Hematocrit 41, Mean Corpuscular Volume 91, Mean Corpuscular Hemoglobin 30, Mean Corpuscular Hemoglobin Concent 34, Red Cell Distribution Width 12.8, Platelet Count 171, Mean Platelet Volume 11.8, Immature Granulocyte % (Auto) 0, Neutrophils (%) (Auto) 68, Lymphocytes (%) (Auto) 23, Monocytes (%) (Auto) 7, Eosinophils (%) (Auto) 3, Basophils (%) (Auto) 0, Neutrophils # (Auto) 5.7, Lymphocytes # (Auto) 1.9, Monocytes # (Auto) 0.6, Eosinophils # (Auto) 0.2, Basophils # (Auto) 0.0, Immature Granulocyte # (Auto) 0.0, Sodium Level 137, Potassium Level 4.3, Chloride Level 105, Carbon Dioxide Level 24, Anion Gap 8, Blood Urea Nitrogen 22, Creatinine 0.86, Estimat Glomerular Filtration Rate 68, BUN/Creatinine Ratio 26, Glucose Level 101, Calcium Level 9.4 08/14/23 04:53: White Blood Count 7.2, Red Blood Count 3.77, Hemoglobin 11.5, Hematocrit 35, Mean Corpuscular Volume 92, Mean Corpuscular Hemoglobin 31, Mean Corpuscular Hemoglobin Concent 33, Red Cell Distribution Width 12.7, Platelet Count 125, Mean Platelet Volume 12.1, Immature Granulocyte % (Auto) 0, Neutrophils (%) (Auto) 54, Lymphocytes (%) (Auto) 29, Monocytes (%) (Auto) 10, Eosinophils (%) (Auto) 6, Basophils (%) (Auto) 0, Neutrophils # (Auto) 3.9, Lymphocytes # (Auto) 2.1, Monocytes # (Auto) 0.7, Eosinophils # (Auto) 0.4, Basophils # (Auto) 0.0, Immature Granulocyte # (Auto) 0.0, Sodium Level 139, Potassium Level 4.1, Chloride Level 109, Carbon Dioxide Level 25, Anion Gap 5, Blood Urea Nitrogen 14, Creatinine 0.77, Estimat Glomerular Filtration Rate 78, BUN/Creatinine Ratio 18, Glucose Level 94, Calcium Level 8.2, Percent Immature Platelet Fraction 8.3, Corrected Calcium 8.8, Total Bilirubin 0.9, Aspartate Amino Transf (AST/SGOT) 19, Alanine Aminotransferase (ALT/SGPT) 14, Alkaline Phosphatase 48, Total Protein 5.9, Albumin 3.2 08/15/23 04:47: White Blood Count 7.9, Red Blood Count 3.82, Hemoglobin 11.4, Hematocrit 35, Mean Corpuscular Volume 91, Mean Corpuscular Hemoglobin 30, Mean Corpuscular Hemoglobin Concent 33, Red Cell Distribution Width 12.5, Platelet Count 124, Mean Platelet Volume 12.2, Immature Granulocyte % (Auto) 0, Neutrophils (%) (Auto) 64, Lymphocytes (%) (Auto) 22, Monocytes (%) (Auto) 10, Eosinophils (%) (Auto) 4, Basophils (%) (Auto) 0, Neutrophils # (Auto) 5.0, Lymphocytes # (Auto) 1.7, Monocytes # (Auto) 0.8, Eosinophils # (Auto) 0.3, Basophils # (Auto) 0.0, Immature Granulocyte # (Auto) 0.0, Sodium Level 135, Potassium Level 4.1, Chloride Level 102, Carbon Dioxide Level 26, Anion Gap 7, Blood Urea Nitrogen 9, Creatinine 0.77, Estimat Glomerular Filtration Rate 78, BUN/Creatinine Ratio 12, Glucose Level 94, Calcium Level 7.9, Percent Immature Platelet Fraction 9.6, Corrected Calcium 8.6, Total Bilirubin 0.7, Aspartate Amino Transf (AST/SGOT) 24, Alanine Aminotransferase (ALT/SGPT) 13, Alkaline Phosphatase 46, Total Protein 5.7, Albumin 3.1 08/16/23 05:33: White Blood Count 9.4, Red Blood Count 3.66, Hemoglobin 11.2, Hematocrit 34, Mean Corpuscular Volume 92, Mean Corpuscular Hemoglobin 31, Mean Corpuscular Hemoglobin Concent 33, Red Cell Distribution Width 12.9, Platelet Count 121, Mean Platelet Volume 12.3, Immature Granulocyte % (Auto) 0, Neutrophils (%) (Auto) 69, Lymphocytes (%) (Auto) 17, Monocytes (%) (Auto) 10, Eosinophils (%) (Auto) 4, Basophils (%) (Auto) 0, Neutrophils # (Auto) 6.5, Lymphocytes # (Auto) 1.6, Monocytes # (Auto) 0.9, Eosinophils # (Auto) 0.3, Basophils # (Auto) 0.0, Immature Granulocyte # (Auto) 0.0, Sodium Level 131, Potassium Level 4.2, Chloride Level 99, Carbon Dioxide Level 26, Anion Gap 6, Blood Urea Nitrogen 17, Creatinine 0.83, Estimat Glomerular Filtration Rate 71, BUN/Creatinine Ratio 20, Glucose Level 114, Calcium Level 8.3, Percent Immature Platelet Fraction 10.6, Corrected Calcium 9.0, Total Bilirubin 1.0, Aspartate Amino Transf (AST/SGOT) 34, Alanine Aminotransferase (ALT/SGPT) 13, Alkaline Phosphatase 52, Total Protein 6.0, Albumin 3.1 08/17/23 05:19: White Blood Count 8.3, Red Blood Count 3.50, Hemoglobin 10.6, Hematocrit 32, Mean Corpuscular Volume 91, Mean Corpuscular Hemoglobin 30, Mean Corpuscular Hemoglobin Concent 33, Red Cell Distribution Width 12.9, Platelet Count 127, Mean Platelet Volume 12.1, Immature Granulocyte % (Auto) 0, Neutrophils (%) (Auto) 70, Lymphocytes (%) (Auto) 17, Monocytes (%) (Auto) 10, Eosinophils (%) (Auto) 3, Basophils (%) (Auto) 0, Neutrophils # (Auto) 5.8, Lymphocytes # (Auto) 1.4, Monocytes # (Auto) 0.8, Eosinophils # (Auto) 0.3, Basophils # (Auto) 0.0, Immature Granulocyte # (Auto) 0.0, Percent Immature Platelet Fraction 10.2, Sodium Level 136, Potassium Level 3.8, Chloride Level 102, Carbon Dioxide Level 28, Anion Gap 6, Blood Urea Nitrogen 12, Creatinine 0.70, Estimat Glomerular Filtration Rate 87, BUN/Creatinine Ratio 17, Glucose Level 105, Calcium Level 8.3, Corrected Calcium 9.1, Total Bilirubin 0.6, Aspartate Amino Transf (AST/SGOT) 37, Alanine Aminotransferase (ALT/SGPT) 15, Alkaline Phosphatase 62, Total Protein 6.0, Albumin 3.0 08/18/23 05:32: White Blood Count 6.9, Red Blood Count 3.38, Hemoglobin 10.4, Hematocrit 31, Mean Corpuscular Volume 91, Mean Corpuscular Hemoglobin 31, Mean Corpuscular Hemoglobin Concent 34, Red Cell Distribution Width 12.9, Platelet Count 151, Mean Platelet Volume 11.8, Immature Granulocyte % (Auto) 0, Neutrophils (%) (Auto) 64, Lymphocytes (%) (Auto) 21, Monocytes (%) (Auto) 8, Eosinophils (%) (Auto) 6, Basophils (%) (Auto) 1, Neutrophils # (Auto) 4.4, Lymphocytes # (Auto) 1.5, Monocytes # (Auto) 0.6, Eosinophils # (Auto) 0.4, Basophils # (Auto) 0.0, Immature Granulocyte # (Auto) 0.0, Sodium Level 140, Potassium Level 3.8, Chloride Level 105, Carbon Dioxide Level 30, Anion Gap 5, Blood Urea Nitrogen 11, Creatinine 0.65, Estimat Glomerular Filtration Rate 89, BUN/Creatinine Ratio 17, Glucose Level 103, Calcium Level 8.3, Corrected Calcium 9.1, Total Bilirubin 0.5, Aspartate Amino Transf (AST/SGOT) 35, Alanine Aminotransferase (ALT/SGPT) 19, Alkaline Phosphatase 61, Total Protein 5.9, Albumin 3.0 Discharge Home Medications: Active Scripts Active Reported Excedrin Extra Strength Caplet (Aspirin/Acetaminophen/Caffeine) 250 Mg-250 Mg-65 Mg Tablet 2 Each PO Q8H PRN Metoprolol Succinate 50 Mg Tab.er.24h 50 Mg PO DAILY Amlodipine Besylate 10 Mg Tablet 10 Mg PO HS Hydrochlorothiazide 25 Mg Tablet 25 Mg PO MO,WE,FR Pravastatin Sodium 40 Mg Tablet 40 Mg PO HS Instructions to patient/family Please see electronic discharge instructions given to patient. Clinical Quality Measures DVT/VTE Risk/Contraindication: Contraindications-Pharm: Other *list below* Other: OR EDDI CURRIE DO Aug 18, 2023 06:37
[2023-08-18 07:09] VITALS: BP 116/67
[2023-08-18] MEDS: DOCUSATE SODIUM 100 MG CAPSULE PO SCH (08:28)
[2023-08-18] MEDS: LACTULOSE SYRUP 10GM/15ML 30ML UDC PO SCH (08:28)
[2023-08-18] MEDS: SENNOSIDES 8.6 MG TABLET PO SCH (08:29)
[2023-08-18] MEDS ORDERED: SENNOSIDES 8.6 MG TABLET PO SCH (09:00)
[2023-08-18 10:13] VITALS: BP 116/67
== END 2023-08-18 10:19 | DRG 522 ==
LOC: EDUNIT# 13:37 → ER 13:39 → 4TH 15:30
PROVIDERS: ADMIT Internal Medicine; ATTEND Internal Medicine
PROC: 0SRR0JA Replacement of Right Hip Joint, Femoral Surface with Synthetic Substitute, Uncemented, Open Approach (ICD-10-PCS; principal; 2023-08-14 14:17)
DX: S72.001A Fracture of unspecified part of neck of right femur, initial encounter for closed fracture (principal); D62 Acute posthemorrhagic anemia; W18.30XA Fall on same level, unspecified, initial encounter; Y92.009 Unspecified place in unspecified non-institutional (private) residence as the place of occurrence of the external cause; Z96.653 Presence of artificial knee joint, bilateral; I10 Essential (primary) hypertension; E78.00 Pure hypercholesterolemia, unspecified; Z79.82 Long term (current) use of aspirin; Z79.899 Other long term (current) drug therapy
CPT/HCPCS: 36415; 51702; 71045; 72170; 80048; 80053; 85025; 87081; 93005; 94664; 94760; 96374

== ENCOUNTER 2023-08-18 08:37 | Inpatient (IN) | payer MEDICARE ==
[~2023-08-18] VITALS: Ht 157.4 cm; Wt 64.2 kg
[~2023-08-18 08:37] MED LIST changes: +AMLO-251 PO; +ASPI-992 PO; +METO50TA7 PO; +PRAV40TA2 PO
[2023-08-18 11:05] VITALS: BP 165/73
--- NOTE | 2023-08-18 11:29 | Physical Therapy Evaluation ---
PT Evaluation-General Medical Diagnosis Admission Date Aug 18, 2023 at 10:15 Medical Diagnosis: (R) THR, anterior approach Onset Date: Aug 13, 2023 Therapy Diagnosis Therapy Diagnosis: (R) LE weakness, mobility deficit, fall risk Height/Weight Height (Feet): 5 Height (Inches): 1 Weight (Pounds): 150 Precautions Precautions/Isolations: Fall Prevention, Standard Precautions Weight Bear Status Right Lower Extremity: Right Weight Bearing/Tolerated Left Lower Extremity: Left Full Weight Bearing Referral Physician: Juan Reason for Referral: Evaluation/Treatment Medical History Pertinent Medical History: HTN Additional Medical History Hyperlipidemia, constipation, hx (B) TKR's 10 years ago. Current History Patient fell at home on 08/13/23 while making cookies with granddaughter and suffered a (R) hip fracture. Had anterior approach THR on 08/14. Social History Home: Multilevel (However patient can live on 1 level) Current Living Status: Other Family Entry Into Home: Level Entry Prior Prior Level of Function SCALE: Activities may be completed with or without assistive devices. 3-Hemqkfzoum-aocigrv completes the activity by him/herself with no assistance from a helper. 5-Set-up or Clean-up Assistance-helper sets up or cleans up; patient completes activity. Arco assists only prior to or following the activity. 4-Supervision or Touching Assistance-helper provides verbal cues and/or touching/steadying and/or contact guard assistance as patient completes activity. Assistance may be provided throughout the activity or intermittently. 3-Partial/Moderate Assistance-helper does LESS THAN HALF the effort. Arco lifts, holds or supports trunk or limbs, but provides less than half the effort. 2-Substantial/Maximal Assistance-helper does MORE THAN HALF the effort. Arco lifts or holds trunk or limbs and provides more than half the effort. 3-Zxzmvxkho-zdalrw does ALL the effort. Patient does none of the effort to complete the activity. Or, the assistance of 2 or more helpers is required for the patient to complete the activity. If activity was not attempted, code reason: 7-Patient Refused. 9-Not Applicable-not attempted and the patient did not perform the activity before the current illness, exacerbation or injury. 10-Not Attempted due to Environmental Limitations-(lack of equipment, weather restraints, etc.). 88-Not Attempted due to Medical Conditions or Safety Concerns. Bed Mobility: 6 (regular bed) Transfers (B,C,W/C): 6 (/s device) Gait: 6 (/s device) Stairs: 6 (/c rails, but did not go up to 2nd story of home per patient's report) Wheelchair Mobility: 9 Indoor Mobility (Ambulation): Independent Stairs: Needed Some Help Prior Devices Use: None Prior Device Use: Has a FWW from her (B) TKR 10 years ago PT Evaluation-Current Subjective Patient agreeable and eager to participate in therapy. States she doesn't really have pain, it is "just a little tender" at the (R) hip. Rates as /10. Pain Section J - Health Conditions 1. Rarely or not at all 2. Occasionally 3. Frequently 4. Almost constantly 8. Unable to answer Pain Effect on Sleep: 1 Pain Interference with Therapy: 1 Pain Interference w/Day-to-Day: 1 Pt/Family Goals To return home with family Objective Patient Orientation: Person, Place ROM/Strength ROM Upper Extremities defer to OT ROM Lower Extremities Decreased (R) hip ROM due to post-op weakness and discomfort. All other LE ROM WFL. Strength Upper Extremities defer to OT Strength Lower Extremities (L) LE 5/5 and ankle/knee, hip flexion 4/5, hip abd/add 4/5. (R) LE: ankle PF/DF 5/5, knee extension/flexion 4/5, hip flexion 3-/5, hip abd/add 3-/5. Sensory Vision: Wears Glasses Hearing: Functional Sensation Right Lower Extremit: Intact Sensation Left Lower Extremity: Intact Transfers Roll Left & Right (QC): 5 (/c bed rail to (L)) Sit to Lying (QC): 3 (Min (A) to lift (R) LE fully onto mattress) Lying to Sitting/Side of Bed(Q: 4 (CGA /c cues) Sit to Stand (QC): 4 (SBA /c prn hand placement cues) Chair/Cib-pv-Mbxwi Xfer(QC): 4 (SBA-CGA /c FWW and safety cues) Toilet Transfer (QC): 4 (CGA /c FWW /c cues) Car Transfer (QC): 3 (min (A) to lift (R) leg into car) Impulsivity noted with transfers Gait Does the Patient Walk?: Yes Mode of Locomotion: Walk Anticipated Mode of Locomotion: Walk Walk 10 feet (QC): 4 (CGA /c FWW) Walk 50 ft with 2 Turns(QC): 4 (CGA /c FWW) Walk 150 ft (QC): 4 (CGA /c FWW) Walking 10ft/uneven surface-QC: 3 (min (A) /c FWW) Distance: 150' Gait Assistive Device: FWW Comments/Gait Description Antalgic over (R) LE Wheelchair Training Does the Pt Use a Wheelchair?: No Wheel 50 ft with 2 turns (QC): 9 Wheel 150 ft (QC): 9 Stairs 1 Step (curb) (QC): 3 (mod (A) for support and cues to step up with good leg first, used FWW) 4 Steps (QC): 3 (min (A) /c (B) rails, mod sequence cues) 12 Steps (QC): 3 (Min (A) /c mod cues to repeat correct sequence) Walking Assistive Device: Walker Balance Sitting Static: Good Sitting Dynamic: Fair Standing Static: Good Standing Dynamic: Fair Picking up an Object (QC): 4 (CGA using FWW and property inspector) Treatment Elderly Mobility Scale: 04/16. Assessment/Needs 82 year old female who is 4 days s/p (R) anterior THR after a fall with hip frac ture. Patient would benefit from strengthening and high level balance/mobility activities to return to home /c family at maximum functional level. Rehab Potential: Good Post Rehab Potential-Barriers: Cognition/impulsivity Equipment Needs Has FWW at home per family. 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 Time Frame: Aug 27, 2023 Roll Left to Right (QC): 6 Sit to Lying (QC): 6 Lying-Sitting on Side/Bed(QC): 6 Sit to Stand (QC): 6 Chair/Woi-qy-Itpmg Xfer(QC): 6 (/c FWW) Toilet/Commode Transfer (QC): 6 (/c FWW) Car Transfer (QC): 6 (/c FWW) Does the Patient Walk: Yes Walk 10 feet (QC): 6 (/c FWW) Walk 10ft-Uneven Surface(QC): 6 (/c FWW) Walk 50ft with 2 Turns (QC): 6 (/c FWW) Walk 150 ft (QC): 6 (/c FWW) Does the Pt use WC or Scooter?: No Wheel 50 feet with 2 turns (QC: 9 Wheel 150 feet: 9 1 Step (curb) (QC): 4 (SBA /c prn sequence cues) 4 Steps (QC): 4 (SBA /c prn sequence cues) 12 Steps (QC): 4 (SBA /c prn sequence cues) Picking up an Object (QC): 6 (/c or without device) Elderly Mobility Scale: 14/20 PT Plan Problem List Problem List: Activity Tolerance, Functional Strength, Safety, Balance, Gait, Transfer, Bed Mobility Treatment/Plan Treatment Plan: Continue Plan of Care Treatment Plan: Bed Mobility, Concurrent Therapy, Education, Functional Activity Kend[place], Functional Strength, Group Therapy, Gait, Safety, Therapeutic Exercise, Transfers Treatment Duration: Aug 27, 2023 Frequency: At least 5 of 7 days/Wk (IRF) Estimated Hrs Per Day: Other (75 minutes per day) Safety Risks/Education Patient Education: Gait Training, Transfer Techniques, Steps, Reviewed Precautions Teaching Recipient: Patient Teaching Methods: Demonstration, Discussion Response to Teaching: Reinforcement Needed Discharge Recommendations Therapy Discharge Recommendati: Home & Family, Post Acute PT Equpiment Recommendations-D/C: Front Wheeled Walker Time Time In: 1015 Time Out: 1100 DATE: Aug 18, 2023 Total Billed Treatment Time: 45 Total Billed Treatment 1, EVM 45' Alexus Arciniega PT Aug 18, 2023 11:29
--- NOTE | 2023-08-18 12:09 | PM&R Post Admission Assessment ---
PM&R HP Date of Visit: Aug 18, 2023 Time of Visit: 10:30 History of Present Illness Chief complaint: Recovering from right hip fracture sustained in a fall at home HPI: This is an 82-year-old female who presented to inpatient rehab to recover from a right hip fracture status post uncomplicated repair. She is participating in therapy and is set for an uneventful hospital course in order to go home. Her blood pressures remained stable. Mild acute blood loss anemia noted. She is eating and drinking well and her bowels are moving. Prior level of functioning is completely independent without use of assistive devices. Past Ljhrusn-Xyvwhs-Nrwjjj Hx Past Med/Social Hx: Reviewed Nursing Past Med/Soc Hx, Reviewed and Corrections made Patient Social History Marrital Status: Employed/Student: retired Alcohol Use: Denies Use Smoking Status: Never a Smoker Recent Hopitalizations: No Immunizations Up To Date Date of Influenza Vaccine: Aug 07, 2023 Past Medical History Surgeries: Appendectomy, Hysterectomy, Joint Replacement, Orthopedic Currently Using CPAP: No Currently Using BIPAP: No Cardiac: High Cholesterol, Hypertension Reproductive: No Hysterectomy Musculoskeletal: Arthritis Skin/Integumentary: Eczema Family History Cancer (ONE SISTER HAD BREAST CANCER ONE SISTER HAD OVARIAN CANCER) G8 SISTER Chest pain G8 SISTER Family history: Asthma (CHILDREN HAVE ASTHMA) Family history: Cardiovascular disease G8 SISTER Family history: Hypertension G8 BROTHER G8 SISTER Headache (DAUGHTERS HAVE SÁNCHEZ) Heart disease G8 SISTER Hypercholesterolemia G8 BROTHER Myocardial infarction 19 FATHER G8 SISTER Stroke (MATERNAL AUNT) Visual impairment (EVERYONE WEARS GLASSES) No Family History of: Abdominal aortic aneurysm Merrick's disease Alcoholism Aphasia Cancer of colon Cataract Congenital heart disease Congestive heart failure Cystic fibrosis Dementia Dysphagia Family history: Allergy Family history: Alzheimer's disease Family history: Arthritis Family history: Breast disease Family history: Coronary thrombosis Family history: Diabetes mellitus Family history: Gastrointestinal disease Family history: Glaucoma Family history: Osteoporosis Family history: Thyroid disorder Hearing loss Hereditary disease History of - anemia History of - disorder History of - respiratory disease History of drug abuse Human immunodeficiency virus (HIV) seropositivity Infertile Kidney disease Malignant neoplasm of lung Parkinson's disease Prostate cancer Psychotic disorder Seizure disorder Tuberculosis Prior Level of Function Bed Mobility: 6 (regular bed) Transfers: 6 (/s device) Gait: 6 (/s device) Stairs: 6 (/c rails, but did not go up to 2nd story of home per patient's report) Wheelchair Mobility: 9 Indoor Mobility (Ambulation): Independent Stairs: Needed Some Help Prior Devices Use: None Has a FWW from her (B) TKR 10 years ago Current Level of Fuctioning Roll Left to Right: 5 (/c bed rail to (L)) Sit to Lyin (Min (A) to lift (R) LE fully onto mattress) Lying to Sitting/Side of Bed: 4 (CGA /c cues) Sit to Stand: 4 (SBA /c prn hand placement cues) Chair/Jvy-mv-Kiovg Xfer: 4 (SBA-CGA /c FWW and safety cues) Car Transfer: 3 (min (A) to lift (R) leg into car) Does the Patient Walk: Yes Mode of Locomotion: Walk Anticipated Mode of Locomotion: Walk Walk 10 feet: 4 (CGA /c FWW) Walk 50 ft with 2 Turns: 4 (CGA /c FWW) Walk 150 ft: 4 (CGA /c FWW) Walking 10ft on uneven surface: 3 (min (A) /c FWW) Gait Assistive Device: FWW Does the Pt Use a Wheelchair: No Wheel 50 ft with 2 turns: 9 Wheel 150 ft: 9 1 Step (curb): 3 (mod (A) for support and cues to step up with good leg first, used FWW) 4 Steps: 3 (min (A) /c (B) rails, mod sequence cues) Walking Assistive Device: Walker 12 Steps: 3 (Min (A) /c mod cues to repeat correct sequence) Picking up an Object: 4 (CGA using FWW and hogshead builder) PM&R Allergy/Meds/Data Review Allergies Coded Allergies: lisinopril (Verified Allergy, Severe, angioedema, 08/13/23) pseudoephedrine HCl (Verified Allergy, Unknown, 08/13/23) famotidine (Verified Adverse Reaction, Mild, 08/13/23) pt started to feel short of breath after dose of pepcid Home Medications Scheduled Amlodipine Besylate (Amlodipine Besylate), 10 MG PO HS, (Reported) Hydrochlorothiazide (Hydrochlorothiazide), 25 MG PO MO,WE,FR, (Reported) Metoprolol Succinate (Metoprolol Succinate), 50 MG PO DAILY, (Reported) Pravastatin Sodium (Pravastatin Sodium), 40 MG PO HS, (Reported) Scheduled PRN Aspirin/Acetaminophen/Caffeine (Excedrin Extra Strength Caplet), 2 EACH PO Q8H PRN for HEADACHE, (Reported) Discontinued Medications Albuterol Sulfate (Albuterol Sulfate), 2.5 MG IH Q4H Discontinued Reason: Referral/FU Appt-Addtl Amlodipine Besylate (Norvasc), 10 MG PO DAILY Discontinued Reason: No Longer Taking Aspirin ([place] Aspirin), 81 MG PO HS, (Reported) Discontinued Reason: No Longer Taking Aspirin/Acetaminophen/Caffeine (Excedrin Migraine Caplet), 2 TAB PO DAILY PRN for MIGRAINE, (Reported) Discontinued Reason: No Longer Taking Atenolol (Tenormin 100 Mg), 100 MG PO HS, (Reported) Discontinued Reason: No Longer Taking Epinephrine (Epipen 2-Александр), 0.3 MG IM UD PRN for DYSPNEA Discontinued Reason: No Longer Taking Levofloxacin (Levaquin), 500 MG PO DAILY Discontinued Reason: No Longer Taking Loratadine (Claritin), 10 MG PO DAILY PRN for RUN[place]SE, (Reported) Discontinued Reason: No Longer Taking Meclizine HCl (Antivert), 1-2 TAB PO Q6H Discontinued Reason: No Longer Taking Pravastatin Sodium (Pravastatin Sodium), 10 MG PO HS, (Reported) Discontinued Reason: No Longer Taking Scopolamine (Transderm-Scop), 1 EACH TD Q72 HOURS Discontinued Reason: No Longer Taking Current Medications Current Medications Reviewed Review of Systems Constitutional: see HPI, malaise, weakness EENTM: no symptoms reported Respiratory: no symptoms reported Cardiovascular: no symptoms reported Gastrointestinal: no symptoms reported Genitourinary: no symptoms reported Musculoskeletal: joint pain Skin: no symptoms reported Psychiatric/Neurological: No Symptoms Reported All Other Systems Reviewed Negative Unless Noted: Yes Physical Exam Physical Exam Vital Signs Vital Signs - First Documented 08/18/23 11:05 Temp 35.4 Pulse 74 Resp 16 B/P (MAP) 165/73 (103) Pulse Ox 98 O2 Delivery Room Air Capillary Refill : Height, Weight, BMI Height: 5'1" Weight: 150lbs. oz. [id number]; 22.92 BMI Method:Stated General Appearance: No Apparent Distress, WD/WN Eyes: Bilateral Eye Normal Inspection, Bilateral Eye PERRL HEENT: PERRL/EOMI, Normal ENT Inspection, Pharynx Normal Neck: Full Range of Motion, Normal Inspection, Non Tender, Supple, Carotid Bruit Respiratory: Chest Non Tender, Lungs Clear, Normal Breath Sounds, No Accessory Muscle Use, No Respiratory Distress Cardiovascular: Regular Rate, Rhythm, No Edema, No Gallop, No JVD, No Murmur, Normal Peripheral Pulses Gastrointestinal: Normal Bowel Sounds, No Organomegaly, No Pulsatile Mass, Non Tender, Soft Back: Normal Inspection, No CVA Tenderness, No Vertebral Tenderness Extremity: Normal Capillary Refill, Normal Inspection, Normal Range of Motion (Except right leg), Non Tender, No Calf Tenderness, No Pedal Edema Neurologic/Psychiatric: Alert, Oriented x3, Normal Mood/Affect, singer and unloader II-XII Norm as Tested, Abnormal Gait, Motor Weakness ( right leg weakness) Skin: Normal Color, Warm/Dry Lymphatic: No Adenopathy PM&R Medical Assessment & Plan REHAB/MEDICAL ASSESSMENT AND PLAN: REHAB IMPAIRMENT GROUP: Status post unilateral hip fracture ETIOLOGIC DIAGNOSIS: Right displaced subcapital femoral neck fracture following a fall The comorbidities that impact the patients function and/or functional outcome by: advanced age, fall risk, Hypertension REHAB PLAN: The patient is being admitted to our comprehensive inpatient rehabilitation facility and can tolerate the intensity of service consisting of at least: 180 minutes of therapy a day, 5 out of 7 days a week Rehab treatment will consist of: PT and OT will follow protocol and use assistive devices in order to gain stamina and ambulation while minimizing pain and increasing independence in ADLs in order to return home to live alone The patient/family has a good understanding of our discharge process and will benefit from an interdisciplinary inpatient rehabilitation program. The patient has potential to make improvement and is in need of at least two of the following multidisciplinary therapies including but not limited to physical, occupational, speech, and prosthetics and orthotics. Additionally the patient will need services from respiratory, nutritional services, wound care, psychology, etc. (Customize this to each patient). Given the patients complex condition and risk of further medical complications, rehabilitation services cannot be safely or effectively provided at a lower level of care such as a long term facility. BARRIERS TO DISCHARGE: advanced age and lives alone ESTIMATED LOS: 10 days DISPOSITION: home RELEVANT CHANGES SINCE PREADMISSION SCREENING: I have compared the patients medical and functional status at the time of the preadmission screening and there are: no changes PROGNOSIS: good REHABILITATION GOALS: 1. PT and OT will follow protocol and use assistive devices in order to gain stamina and ambulation while minimizing pain and increasing independence in ADLs in order to return home to live alone All the above goals were reviewed with the patient and he/she is in agreement. By signing this document, I acknowledge that I have personally performed a full physical examination on this patient within 24 hours of admission to this inpatient rehabilitation facility and have determined the patient to be able to tolerate the above course of treatment at an intensive level for a reasonable period of time. I will be completing a detailed individualized Plan of Care for this patient by day #4 of the patients stay based upon the Preadmission Screen, the Post-Admission Evaluation, and the therapy evaluations. Admission Dx/Comorbidities: (1) Femoral neck fracture ICD Codes: S72.009A - Fracture of unspecified part of neck of unspecified femur, initial encounter for closed fracture EDDI CURRIE DO Aug 18, 2023 12:09
[2023-08-18] MEDS ORDERED: oxyCODONE IMMEDIATE RELEASE 5 MG TABLET PO PRN (12:15)
[2023-08-18] MEDS ORDERED: HYDROcodone/ACETAMINOPHEN 5 MG/325 MG TABLET PO PRN (12:15)
[2023-08-18] MEDS ORDERED: ANTACID SUSPENSION 30 ML UDC PO PRN (12:15)
[2023-08-18] MEDS ORDERED: CALCIUM CARBONATE 500 MG CHEW TABLET PO PRN ×2 (12:15)
[2023-08-18] MEDS ORDERED: guaiFENesin/CODEINE 10ML UDC PO PRN (12:15)
[2023-08-18] MEDS ORDERED: diphenhydrAMINE INJ 50 MG/ML VIAL IVP PRN (12:15)
[2023-08-18] MEDS ORDERED: DOCUSATE SODIUM 100 MG CAPSULE PO PRN (12:15)
[2023-08-18] MEDS ORDERED: BISACODYL 10 MG SUPPOSITORY PR PRN ×2 (12:15)
[2023-08-18] MEDS ORDERED: ONDANSETRON INJECTION 4 MG/2 ML (SDV) IVP PRN (12:15)
[2023-08-18] MEDS ORDERED: MELATONIN 3 MG TABLET PO PRN ×2 (12:15)
[2023-08-18] MEDS ORDERED: Sodium Phosphate/Sodium Biphosphate ADULT enema PR PRN (12:15)
[2023-08-18] MEDS ORDERED: RT-ALBUTEROL SULF 2.5 MG/3 ML PRE-MIX VIAL INH PRN (12:15)
[2023-08-18] MEDS ORDERED: ONDANSETRON 4 MG ORAL DISSOLVE TABLET PO PRN ×2 (12:15)
[2023-08-18] MEDS ORDERED: LOPERAMIDE 2 MG CAPSULE PO PRN (12:15)
[2023-08-18] MEDS ORDERED: diphenhydrAMINE 25 MG TABLET PO PRN ×2 (12:15)
[2023-08-18] MEDS ORDERED: LACTULOSE SYRUP 10GM/15ML 30ML UDC PO PRN (12:15)
[2023-08-18] MEDS ORDERED: ACETAMINOPHEN 325 MG TABLET PO PRN (12:15)
[2023-08-18] MEDS ORDERED: MILK OF MAGNESIA 400 MG/5 ML 30 ML UDC PO PRN (12:15)
[2023-08-18] MEDS ORDERED: fentaNYL INJECTION 100 MCG/2 ML VIAL IVP PRN (12:15)
--- NOTE | 2023-08-18 14:27 | ST Cognitive Linguistic Eval ---
Speech Evaluation-General Medical Diagnosis (R) THR, anterior approach Onset Date: Aug 13, 2023 Therapy Diagnosis Therapy Diagnosis: Mental status Change Precautions Precautions: Fall Precautions/Isolations: Standard Precautions Referral Referring Physician: Juan Reason for Referral: Evaluation/Treatment Medical History Pertinent Medical History: HTN Hyperlipidemia, constipation, hx (B) TKR's 10 years ago. Current History Patient fell at home on 08/13/23 while making cookies with granddaughter and suffered a (R) hip fracture. Had anterior approach THR on 08/14. Social History Current Living Status: Other Family Speech PLF-Current Status Prior Level of Function Pt reports independence with ADLs. Subjective Pt sitting in bedside chair and agreeable to session. Pt's friend was present. Language Eval: Auditory Comprehends Simple Yes/No Ques: Functional Follows 1-Step Commands: Functional Follows Complex Directions: Mild Follows General Conversations: Functional Language Eval: Verbal Language Completes Spontaneous Greeting: Functional Requests Basic Needs: Functional States Basic Personal Info: Mild (Unable to recall full address ) Language Evaluation: Reading Comprehends Multiple Sentences: Functional Language Evaluation: Writing Copies/Traces: Functional Objective Cognitive Domain Attention: Mild Memory: Moderate Problem Solving: Functional Executive Functions: Mild Visuospatial Skills: Mild Clock Drawing Severity Rating: WNL Objective Formal/Standardized Tests CLQT Results Pt scores within the moderate range for cognitive deficit. Impression Per CLQT, pt demonstrates deficits in auditory working memory, generative naming, and attention to task. Speech Associate Professor Of Surgery Goals Prison Goals Pt will demonstrate the ability to follow multi-step directions related to functional living environment with 85% accuracy. Pt will complete working memory tasks given auditory information with 85% accuracy. Pt will complete generative naming tasks with 85% accuracy. Speech-Plan Patient/Family Goals Patient/Family Goals: to return home Treatment Plan Speech Therapy Treatment Plan: Continue Plan of Care Frequency: At least 5 of 7 days/Wk (IRF) Estimated Hrs Per Day: .5 hour per day Rehab Potential: Good Pt/Family Agrees to Plan: Yes Time Speech Therapy Time In: 14:40 Speech Therapy Time Out: 15:10 DATE: Aug 18, 2023 Total Billed Time: 30 Billed Treatment Time 1 SPSNDCOMP 30 min Dominique Manzano Aug 18, 2023 14:27
--- NOTE | 2023-08-18 15:25 | Occupational Therapy Eval ---
OT Evaluation-General/PLF Medical Diagnosis Admission Date Aug 18, 2023 at 10:15 Medical Diagnosis: (R) THR, anterior approach Onset Date: Aug 13, 2023 Therapy Diagnosis Therapy Diagnosis: decreased ADL status Height/Weight Height (Feet): 5 Height (Inches): 1 Weight (Pounds): 150 Precautions Precautions/Isolations: Standard Precautions Referral Physician: Juan Referral Reason: Evaluation/Treatment Medical History Pertinent Medical History: HTN Additional Medical History HTN, joint replacement Current History 08/13 fall at home, sustained R femoral neck fx. 08/14/23 s/p R bipolar hip replacement, anterolateral approach. 08/18/23 transfer to [facility] Social History Home: Multilevel (However patient can live on 1 level) Current Living Status: Other Family Entry Into Home: Level Entry ADL-Prior Level of Function SCALE: Activities may be completed with or without assistive devices. 8-Vtxnsonxxm-ycuirwt completes the activity by him/herself with no assistance from a helper. 5-Set-up or Clean-up Assistance-helper sets up or cleans up; patient completes activity. [place] assists only prior to or following the activity. 4-Supervision or Touching Assistance-helper provides verbal cues and/or touching/steadying and/or contact guard assistance as patient completes activity. Assistance may be provided throughout the activity or intermittently. 3-Partial/Moderate Assistance-helper does LESS THAN HALF the effort. [place] lift s, holds or supports trunk or limbs, but provides less than half the effort. 2-Substantial/Maximal Assistance-helper does MORE THAN HALF the effort. [place] lifts or holds trunk or limbs and provides more than half the effort. 6-Pfxzirwml-huyeyt does ALL the effort. Patient does none of the effort to complete the activity. Or, the assistance of 2 or more helpers is required for the patient to complete the activity. If activity was not attempted, code reason: 7-Patient Refused. 9-Not Applicable-not attempted and the patient did not perform the activity before the current illness, exacerbation or injury. 10-Not Attempted due to Environmental Limitations-(lack of equipment, weather restraints, etc.). 88-Not Attempted due to Medical Conditions or Safety Concerns. ADL PLOF Comments Pt reports IND with ADLs and functional mobility at PLOF. Her family is getting her a room ready on the main level of the [place], should be complete in the next couple of days. She has a walk in shower chair, family has a SC for pt to utilize. She indicates she was able to put on socks/shoes and compression socks at OF. She did not use any AD for mobility. Self Care: Independent Functional Cognition: Needed Some Help DME/Equipment: Bath Chair, Shower Drive Self: No OT Current Status Subjective Pt agreeable to OT Tx, does not c/o pain. Mental Status/Objective Patient Orientation: Person, Confused, Place, Situation Current Glasses/Contacts: Yes Hearing Aids: No Dentures/Partials: Yes Hand Dominance: Right Upper Extremity ROM WFL Upper Extremity Coordination WFL Upper Extremity Sensation WFL per pt report Upper Extremity Strength grossly 4/5 ADL-Treatment Eating (QC): 6 Oral Hygiene (QC): 4 (SBA) Shower/Bathe Self (QC): 4 (SBA) Upper Body Dressing (QC): 5 Lower Body Dressing (QC): 4 (SBA) On/Off Footwear (QC): 3 (Mod A overall donning/doffing gripper socks and compression socks. ) Toileting Hygiene (QC): 4 (SBA) Other Treatments Pt agreeable to OT evaluation/tx, sit to stand from recliner, SBA, SBA using FWW to transfer to toilet. Pt completed toileting, SBA, then transferred to SC. Pt doffed clothes, completed shower as outlined above. OT/PT cotreat due to skill of 2 clinicians required which a rehabilitation attendant could not perform in order to coordinate UE/LEs, decrease fall risk, and focus on higher level balance tasks. OT focused on ADLS, UE placement, cues for sequencing and safety, PT focused on LE placement, gross overall movement, transfers/mobility. Pt donned clothes, then stood at sink to complete grooming tasks, SBA. Pt used FWW to perform functional mobility around [facility] common area and back to her room, transferring to recliner. Post tx, pt in recliner, call light in reach and all needs met. Education OT Patient Education: Correct positioning, Energy conservation, Modified ADL techniques, Progress toward Goal/Update tx plan, Purpose of tx/functional activities, Rehab process Teaching Recipient: Patient Teaching Methods: Discussion Response to Teaching: Verbalize Understanding BIMS CAM BIMS Expression of Ideas and Wants: Without Difficulty Understanding Verbal Content: Understands Brief Interview/Mental Status: Yes IRF ELKIN BIMS: IRF ELKIN BIMS Response (Comments) Value Repitition of Three Words Three 3 Recalls Socks No, Could Not Recall 0 Recalls Blue Yes, No Cue Required 2 Recalls Bed Yes, No Cue Required 2 Year Missed by 5 Yrs/No Answer 0 Month Accurate Within 5 Days 2 Day Incorrect or No Answer 0 Total 9 Patient Normally Able to Recal: Current Session, That he/she in a hsp Should Staff Asses. Mental St.: No Memory/Recall Ability: Current Season, That He/She in Hospit[facility] Mental Status Change/Baseline: 0 Inattention: 0 Disorganized thinkin Altered level of consciousness: 0 OT Video Production Assistant Goals Fdc Goals Time Frame: Sep 11, 2023 Eating (QC): 6 Oral Hygiene (QC): 6 Toileting Hygiene (QC): 6 Shower/Bathe Self (QC): 6 Upper Body Dressing (QC): 6 Lower Body Dressing (QC): 6 On/Off Footwear (QC): 6 Additional Goals: 1-Demonstrate ADL Tasks, 2-Verbalize Understanding, 3- ImproveStrength/Kendell 1=Demonstrate adherence to instructed precautions during ADL tasks. 2=Patient will verbalize/demonstrate understanding of assistive devices/modifications for ADL. 3=Patient will improve strength/tolerance for activity to enable patient to perform ADL's. OT Education/Plan Problem List/Assessment Assessment: Decreased Activ Tolerance, Decreased UE Strength, Impaired Funct Balance, Impaired I ADL's, Impaired Self-Care Skills Discharge Recommendations Plan/Recommendations: Continue POC Treatment Plan/Plan of Care Patient would benefit from OT for education, treatment and training to promote independence in ADL's, mobility, safety and/or upper extremity function for ADL's. Plan of Care: ADL Retraining, Functional Mobility, Group Exercise/Act as Ind, UE Funct Exercise/Act Treatment Duration: Sep 11, 2023 Frequency: At least 5 of 7 days/Wk (IRF) Estimated Hrs Per Day: Other (75 mins per day) Rehab Potential: Good Time Start Time: 13:15 Stop Time: 14:40 DATE: Aug 18, 2023 Total Time Billed (hr/min): 85 Billed Treatment Time cotreat x40' 1, EVL (15'), ADL 4 (60'), FA (10') ELMER JASMINE OT Aug 18, 2023 15:25
--- NOTE | 2023-08-18 16:30 | Physical Therapy Daily Note ---
PT Daily Note-Current Subjective Pt working w/OT upon arrival. Pt agrees to PT/OT co-treat to finish tx. Pain Section J - Health Conditions 1. Rarely or not at all 2. Occasionally 3. Frequently 4. Almost constantly 8. Unable to answer Pain Effect on Sleep: 1 Pain Interference with Therapy: 1 Pain Interference w/Day-to-Day: 1 Transfers SCALE: Activities may be completed with or without assistive devices. 7-Ycedscfkhd-sadkney completes the activity by him/herself with no assistance from a helper. 5-Set-up or Clean-up Assistance-helper sets up or cleans up; patient completes activity. [place] assists only prior to or following the activity. 4-Supervision or Touching Assistance-helper provides verbal cues and/or touching/steadying and/or contact guard assistance as patient completes activity. Assistance may be provided throughout the activity or intermittently. 3-Partial/Moderate Assistance-helper does LESS THAN HALF the effort. [place] lifts, holds or supports trunk or limbs, but provides less than half the effort. 2-Substantial/Maximal Assistance-helper does MORE THAN HALF the effort. [place] lifts or holds trunk or limbs and provides more than half the effort. 8-Edblozttx-gmslng does ALL the effort. Patient does none of the effort to complete the activity. Or, the assistance of 2 or more helpers is required for the patient to complete the activity. If activity was not attempted, code reason: 7-Patient Refused. 9-Not Applicable-not attempted and the patient did not perform the activity before the current illness, exacerbation or injury. 10-Not Attempted due to Environmental Limitations-(lack of equipment, weather restraints, etc.). 88-Not Attempted due to Medical Conditions or Safety Concerns. Weight Bearing Right Lower Extremity: Right Weight Bearing/Tolerated Left Lower Extremity: Left Full Weight Bearing Gait Training Does the Patient Walk?: Yes Distance: 80' x2 Walk 10 feet (QC): 4 (CGA) Walk 50 ft with 2 Turns(QC): 4 (CGA) Gait Persons Needed: 1 Gait Assistive Device: FWW Treatments OT/PT cotreat due to skill of 2 clinicians required which a rehabilitation program coordinator could not perform in order to coordinate UE/LEs, decrease fall risk, and focus on higher level balance tasks. OT focused on ADLS, UE placement, cues for sequencing and safety, PT focused on LE placement, gross overall movement, transfers/mobility. Pt donned clothes, then stood at sink to complete grooming tasks, SBA. Pt used FWW to perform functional mobility around [facility] common area and back to her room, transferring to recliner. Post tx, pt in recliner, call light in reach and all needs met. Assessment Current Status: Good Progress Pt demonstrates safety w/transfers w/good hand placement as well as good sequencing of proper transfers. PT Custodial Goals Custodial Goals PT Custodial Goals Time Frame: Aug 27, 2023 Roll Left & Right (QC): 6 Sit to Lying (QC): 6 Lying-Sitting on Side/Bed(QC): 6 Sit to Stand (QC): 6 Chair/Rjy-tq-Qlqmu Xfer(QC): 6 (/c FWW) Toilet Transfer (QC): 6 (/c FWW) Car Transfer (QC): 6 (/c FWW) Does the Patient Walk: Yes Walk 10 feet (QC): 6 (/c FWW) Walk 50ft with 2 Turns (QC): 6 (/c FWW) Walk 150 ft (QC): 6 (/c FWW) Walking 10ft on Uneven Surface: 6 (/c FWW) 1 Step (curb) (QC): 4 (SBA /c prn sequence cues) 4 Steps (QC): 4 (SBA /c prn sequence cues) 12 Steps (QC): 4 (SBA /c prn sequence cues) Picking up an Object (QC): 6 (/c or without device) Does the Pt use WC or Scooter?: No Wheel 50 feet with 2 turns (QC: 9 Wheel 150 feet: 9 PT Plan Problem List Problem List: Activity Tolerance, Functional Strength, Gait Treatment/Plan Treatment Plan: Continue Plan of Care Treatment Plan: Bed Mobility, Concurrent Therapy, Education, Functional Activity Kendell, Functional Strength, Group Therapy, Gait, Safety, Therapeutic Exercise, Transfers Treatment Duration: Aug 27, 2023 Frequency: At least 5 of 7 days/Wk (IRF) Estimated Hrs Per Day: 1.5 hours per day Patient and/or Family Agrees t: Yes Safety Risks/Education Patient Education: Gait Training, Transfer Techniques, Correct Positioning, Safety Issues Teaching Recipient: Patient, Family Teaching Methods: Discussion Response to Teaching: Verbalize Understanding Time Time In: 1400 Time Out: 1440 DATE: Aug 18, 2023 Total Billed Treatment Time: 40 Total Billed Treatment Co-treat w/OT for 40m 1, FA x2 (25m) & GT (15m) KIN RAJAN FOOD ANALYST Aug 18, 2023 16:30
[2023-08-18 20:50] VITALS: BP 132/63
[2023-08-18] MEDS: amLODIPine 10 MG TABLET PO SCH (20:56)
[2023-08-18] MEDS: ACETAMINOPHEN 325 MG TABLET PO PRN (20:56)
[2023-08-18] MEDS: DOCUSATE SODIUM 100 MG CAPSULE PO SCH (20:58)
[2023-08-18] MEDS ORDERED: DOCUSATE SODIUM 100 MG CAPSULE PO SCH (21:00)
[2023-08-18] MEDS: LACTULOSE SYRUP 10GM/15ML 30ML UDC PO SCH (21:00)
[2023-08-18] MEDS ORDERED: SENNA W/DOCUSATE TABLET PO SCH (21:00)
--- NOTE | 2023-08-19 05:42 | PM&R Progress Note ---
Subjective HPI/CC On Admission Date Seen by Provider: Aug 19, 2023 Time Seen by Provider: 13:00 Subjective/Events-last exam 08/19/2023: Patient doing well Pain is controlled Participating in therapy Bowels are moving Eating and drinking Review of Systems General: Fatigue, Malaise Musculoskeletal: leg pain Objective Exam Vital Signs Vital Signs Date Time Temp Pulse Resp B/P (MAP) Pulse Ox O2 Delivery O2 Flow Rate FiO2 08/19/23 09:54 94 Room Air 08/19/23 08:00 36.0 78 18 120/55 (76) Capillary Refill : General Appearance: No Apparent Distress, WD/WN HEENT: PERRL/EOMI, Normal ENT Inspection, Pharynx Normal Neck: Full Range of Motion, Normal Inspection, Non Tender, Supple, Carotid Bruit Respiratory: Chest Non Tender, Lungs Clear, Normal Breath Sounds, No Accessory Muscle Use, No Respiratory Distress Cardiovascular: Regular Rate, Rhythm, No Edema, No Gallop, No JVD, No Murmur, Normal Peripheral Pulses Gastrointestinal: Normal Bowel Sounds, No Organomegaly, No Pulsatile Mass, Non Tender, Soft Back: Normal Inspection, No CVA Tenderness, No Vertebral Tenderness Extremity: Normal Capillary Refill, Normal Inspection, Normal Range of Motion (Except right leg), Non Tender, No Calf Tenderness, No Pedal Edema Neurologic/Psychiatric: Alert, Oriented x3, Normal Mood/Affect, financial auditor II-XII Norm as Tested, Abnormal Gait, Motor Weakness ( right leg weakness) Skin: Normal Color, Warm/Dry Lymphatic: No Adenopathy Results/Procedures Lab Laboratory Tests 08/19/23 05:45 Patient resulted labs reviewed. FIM Transfers Therapy Code Descriptions/Definitions Functional [place] Measure: 0=Not Assessed/NA 4=Minimal Assistance 1=Total Assistance 5=Supervision or Setup 2=Maximal Assistance 6=Modified [place] 3=Moderate Assistance 7=Complete IndependenceSCALE: Activities may be completed with or without assistive devices. 7-Pvohckzwgw-lkrktuc completes the activity by him/herself with no assistance from a helper. 5-Set-up or Clean-up Assistance-helper sets up or cleans up; patient completes activity. [place] assists only prior to or following the activity. 4-Supervision or Touching Assistance-helper provides verbal cues and/or touching/steadying and/or contact guard assistance as patient completes activity. Assistance may be provided throughout the activity or intermittently. 3-Partial/Moderate Assistance-helper does LESS THAN HALF the effort. [place] lifts, holds or supports trunk or limbs, but provides less than half the effort. 2-Substantial/Maximal Assistance-helper does MORE THAN HALF the effort. [place] lifts or holds trunk or limbs and provides more than half the effort. 4-Ykykttcfs-eatxxm does ALL the effort. Patient does none of the effort to complete the activity. Or, the assistance of 2 or more helpers is required for the patient to complete the activity. If activity was not attempted, code reason: 7-Patient Refused. 9-Not Applicable-not attempted and the patient did not perform the activity before the current illness, exacerbation or injury. 10-Not Attempted due to Environmental Limitations-(lack of equipment, weather restraints, etc.). 88-Not Attempted due to Medical Conditions or Safety Concerns. Roll Left to Right (QC): 5 (/c bed rail to (L)) Sit to Lying (QC): 3 (Min (A) to lift (R) LE fully onto mattress) Sit to Stand (QC): 4 (SBA /c prn hand placement cues) Chair/Hph-xk-Yfmdm Xfer(QC): 4 (SBA-CGA /c FWW and safety cues) Car Transfer (QC): 3 (min (A) to lift (R) leg into car) Gait Training Does the Patient Walk?: Yes Distance: 80' x2 Walk 10 feet (QC): 4 (CGA) Walk 50 ft with 2 Turns(QC): 4 (CGA) Walk 150 ft (QC): 4 (CGA /c FWW) Walking 10ft/uneven surface-QC: 3 (min (A) /c FWW) Gait Persons Needed: 1 Gait Assistive Device: FWW Wheelchair Training Does the Pt Use a Wheelchair?: No Wheel 50 ft with 2 turns (QC): 9 Wheel 150 ft (QC): 9 Stair Training 1 Step (curb) (QC): 3 (mod (A) for support and cues to step up with good leg first, used FWW) 4 Steps (QC): 3 (min (A) /c (B) rails, mod sequence cues) 12 Steps (QC): 3 (Min (A) /c mod cues to repeat correct sequence) Balance Picking up an Object (QC): 4 (CGA using FWW and stained glass window designer) ADL-Treatment Eating (QC): 6 Oral Hygiene (QC): 4 (SBA) Shower/Bathe Self (QC): 4 (SBA) Upper Body Dressing (QC): 5 Lower Body Dressing (QC): 4 (SBA) On/Off Footwear (QC): 3 (Mod A overall donning/doffing gripper socks and compr ession socks. ) Toileting Hygiene (QC): 4 (SBA) Assessment/Plan Assessment and Plan Assess & Plan/Chief Complaint Assessment: Right hip fracture HTN HLP Post op acute blood loss anemia Post op constipation 08/19/2023: Supportive care Monitor closely Continue aggressive therapy (1) Femoral neck fracture EDDI CURRIE DO Aug 19, 2023 05:42
[2023-08-19 06:11] LABS: ALBUMIN 2.9 GM/DL (3.2-4.5); POTASSIUM 3.9 MMOL/L (3.6-5.0)
[2023-08-19 06:12] LABS: CALCIUM 8.2 MG/DL (8.5-10.1)
[2023-08-19 06:13] LABS: TOTAL PROTEIN 5.8 GM/DL (6.4-8.2)
[2023-08-19 06:15] LABS: BILIRUBIN,TOTAL 0.6 MG/DL (0.1-1.0)
[2023-08-19 06:17] LABS: CREATININE SERUM 0.69 MG/DL (0.60-1.30)
[2023-08-19 06:37] LABS: BASOPHILS % (AUTO) 1 % (0-10); EOSINOPHILS # (AUTO) 0.6 10^3/uL (0.0-0.3); EOSINOPHILS % (AUTO) 9 % (0-10); HEMATOCRIT 31 % (35-52); LYMPHOCYTES # (AUTO) 1.9 10^3/uL (1.0-4.0); LYMPHOCYTES % (AUTO) 28 % (12-44); MEAN CORPUSCULAR HEMOGLOBIN 30 pg (25-34); MEAN CORPUSCULAR HGB CONC 33 g/dL (32-36); MEAN CORPUSCULAR VOLUME 91 fL (80-99); MEAN PLATELET VOLUME 11.9 fL (9.0-12.2); MONOCYTES # (AUTO) 0.5 10^3/uL (0.0-1.0); MONOCYTES % (AUTO) 8 % (0-12); NEUTROPHILS # (AUTO) 3.6 10^3/uL (1.8-7.8); NEUTROPHILS % (AUTO) 54 % (42-75); PLATELET COUNT 171 10^3/uL (130-400); WHITE BLOOD COUNT 6.6 10^3/uL (4.3-11.0)
[2023-08-19 08:00] VITALS: BP 120/55
[2023-08-19] MEDS: DOCUSATE SODIUM 100 MG CAPSULE PO SCH ×2 (08:26→21:11)
[2023-08-19] MEDS: LACTULOSE SYRUP 10GM/15ML 30ML UDC PO SCH ×2 (08:27→21:11)
[2023-08-19] MEDS: SENNOSIDES 8.6 MG TABLET PO SCH (08:27)
--- NOTE | 2023-08-19 09:32 | Progress Note ---
Standard Progress Note Progress Notes/Assess & Plan Date Seen by a Provider: Aug 19, 2023 Time Seen by a Provider: 09:31 Progress/Assessment & Plan no complaints R hip incision clean and dry no calf tenderness neg Samira's s/p R hip bipolar PT/OT EVA JAIME MD Aug 19, 2023 09:32
--- NOTE | 2023-08-19 11:19 | Occupational Ther Daily Note ---
OT Current Status-Daily Note Subjective Pt in recliner, agreeable to OT tx. ADL-Treatment Therapy Code Descriptions/Definitions Functional [place] Measure: 0=Not Assessed/NA 4=Minimal Assistance 1=Total Assistance 5=Supervision or Setup 2=Maximal Assistance 6=Modified [place] 3=Moderate Assistance 7=Complete IndependenceSCALE: Activities may be completed with or without assistive devices. 9-Zyyvdixwxa-wmtvxrn completes the activity by him/herself with no assistance from a helper. 5-Set-up or Clean-up Assistance-helper sets up or cleans up; patient completes activity. [place] assists only prior to or following the activity. 4-Supervision or Touching Assistance-helper provides verbal cues and/or touching/steadying and/or contact guard assistance as patient completes activity. Assistance may be provided throughout the activity or intermittently. 3-Partial/Moderate Assistance-helper does LESS THAN HALF the effort. [place] lifts, holds or supports trunk or limbs, but provides less than half the effort. 2-Substantial/Maximal Assistance-helper does MORE THAN HALF the effort. [place] lifts or holds trunk or limbs and provides more than half the effort. 9-Mnbwukypw-vgbxtv does ALL the effort. Patient does none of the effort to compl ete the activity. Or, the assistance of 2 or more helpers is required for the patient to complete the activity. If activity was not attempted, code reason: 7-Patient Refused. 9-Not Applicable-not attempted and the patient did not perform the activity before the current illness, exacerbation or injury. 10-Not Attempted due to Environmental Limitations-(lack of equipment, weather restraints, etc.). 88-Not Attempted due to Medical Conditions or Safety Concerns. Oral Hygiene (QC): 4 (SBA standing at sink) Upper Body Dressing (QC): 5 Lower Body Dressing (QC): 4 (SBA) Toileting Hygiene (QC): 4 (SBA) Toilet Transfer (QC): 4 (SBA) Other Treatment Pt in recliner, used FWW to transfer into bathroom and onto BSC over toilet, SBA. Pt completed toileting and changed shirt and pants as outlined above. Pt stood at sink using FWW to complete grooming tasks, SBA. Pt then used FWW to perform functional mobility to [facility]. OT tx focused on increasing standing tolerance, activity tolerance, and UE reaching to increase pt's independence with I/ADLs. Pt stood using FWW at elevated table, completing UE reaching task at table top. Pt able to stand ~30 mins prior to needing seated rest break. Pt returned to her room using FWW, SBA, transferring to recliner. Post tx, pt in recliner, call light in reach and all needs met, chair alarm activated. Education OT Patient Education: Correct positioning, Energy conservation, Modified ADL techniques, Progress toward Goal/Update tx plan, Purpose of tx/functional activities, Rehab process Teaching Recipient: Patient Teaching Methods: Discussion Response to Teaching: Verbalize Understanding OT [facility] Goals Wallpaper Remover Steam Goals Time Frame: Sep 11, 2023 Acute change in mental status: 0 Inattention: 0 Disorganized thinkin Altered level of consciousness: 0 Eating (QC): 6 Oral Hygiene (QC): 6 Toileting Hygiene (QC): 6 Shower/Bathe Self (QC): 6 Upper Body Dressing (QC): 6 Lower Body Dressing (QC): 6 On/Off Footwear (QC): 6 Additional Goals: 1-Demonstrate ADL Tasks, 2-Verbalize Understanding, 3- ImproveStrength/Kendell 1=Demonstrate adherence to instructed precautions during ADL tasks. 2=Patient will verbalize/demonstrate understanding of assistive devices/modifications for ADL. 3=Patient will improve strength/tolerance for activity to enable patient to perform ADL's. OT Education/Plan Problem List/Assessment Assessment: Decreased Activ Tolerance, Decreased UE Strength, Impaired Funct Balance, Impaired I ADL's, Impaired Self-Care Skills Discharge Recommendations Plan/Recommendations: Continue POC Treatment Plan/Plan of Care Patient would benefit from OT for education, treatment and training to promote independence in ADL's, mobility, safety and/or upper extremity function for ADL's. Plan of Care: ADL Retraining, Functional Mobility, Group Exercise/Act as Ind, UE Funct Exercise/Act Treatment Duration: Sep 11, 2023 Frequency: At least 5 of 7 days/Wk (IRF) Estimated Hrs Per Day: Other (75 mins per day) Rehab Potential: Good Time Start Time: 09:45 Stop Time: 11:00 DATE: Aug 19, 2023 Total Time Billed (hr/min): 75 Billed Treatment Time 1, ADL 2 (30'), FA 3 (45') ELEMR JASMINE OT Aug 19, 2023 11:19
--- NOTE | 2023-08-19 13:43 | Physical Therapy Daily Note ---
PT Daily Note-Current Subjective Pt presents sitting in recliner with B feet elevated. Pt denies pain and is agreeable to tx. Pain Section J - Health Conditions 1. Rarely or not at all 2. Occasionally 3. Frequently 4. Almost constantly 8. Unable to answer Pain Effect on Sleep: 1 Pain Interference with Therapy: 1 Pain Interference w/Day-to-Day: 1 Mental Status Patient Orientation: Person, Place, Time, Situation Transfers SCALE: Activities may be completed with or without assistive devices. 1-Appdjspown-nuutzgt completes the activity by him/herself with no assistance from a helper. 5-Set-up or Clean-up Assistance-helper sets up or cleans up; patient completes activity. [place] assists only prior to or following the activity. 4-Supervision or Touching Assistance-helper provides verbal cues and/or touching/steadying and/or contact guard assistance as patient completes activity. Assistance may be provided throughout the activity or intermittently. 3-Partial/Moderate Assistance-helper does LESS THAN HALF the effort. [place] lifts, holds or supports trunk or limbs, but provides less than half the effort. 2-Substantial/Maximal Assistance-helper does MORE THAN HALF the effort. [place] lifts or holds trunk or limbs and provides more than half the effort. 3-Hecptkbjm-ozylat does ALL the effort. Patient does none of the effort to complete the activity. Or, the assistance of 2 or more helpers is required for the patient to complete the activity. If activity was not attempted, code reason: 7-Patient Refused. 9-Not Applicable-not attempted and the patient did not perform the activity before the current illness, exacerbation or injury. 10-Not Attempted due to Environmental Limitations-(lack of equipment, weather restraints, etc.). 88-Not Attempted due to Medical Conditions or Safety Concerns. Sit to Lying (QC): 6 Lying to Sitting/Side of Bed(Q: 6 Sit to Stand (QC): 6 Chair/Gpv-he-Cncph Xfer(QC): 6 Weight Bearing Right Lower Extremity: Right Weight Bearing/Tolerated Left Lower Extremity: Left Full Weight Bearing Gait Training Does the Patient Walk?: Yes Walk 10 feet (QC): 6 Walk 50 ft with 2 Turns(QC): 4 Gait Assistive Device: FWW Pt amb from room<>PT gym with FWW, SBA for safety. Wheelchair Training Does the Pt Use a Wheelchair?: No Exercises Supine Ex: Bridging, Ankle pumps, Quad Set, Glut sets, Heel Slides, Short Arc Quads, Straight leg raise ((R) x 5reps, (L) x 10reps), Hip abd/add (With manual resistance) Supine Reps: 10 Treatments Pt still eating lunch upon RETAIL PARTS PROFESSIONAL arrival (lunch arrived late). RETAIL PARTS PROFESSIONAL provided pt education over 4 Anterolateral Hip Precautions, Leg Pie Maker usage and Hip HEP. Pt able to verbalize understanding and able to recite 4 hip precautions. Pt amb from room to PT gym and conducted ther ex. Pt amb back to room with grandson present. Post tx with pt in recliner, grandson present, call light within reach and all needs met. Assessment Current Status: Good Progress Pt lacks quad and hip flexor strength secondary to SONJA. Pt able to recite 4 hip precautions without prompting. PT Penitentiary Goals Penitentiary Goals PT Penitentiary Goals Time Frame: Aug 27, 2023 Roll Left & Right (QC): 6 Sit to Lying (QC): 6 Lying-Sitting on Side/Bed(QC): 6 Sit to Stand (QC): 6 Chair/Pkg-wf-Hmwhh Xfer(QC): 6 (/c FWW) Toilet Transfer (QC): 6 (/c FWW) Car Transfer (QC): 6 (/c FWW) Does the Patient Walk: Yes Walk 10 feet (QC): 6 (/c FWW) Walk 50ft with 2 Turns (QC): 6 (/c FWW) Walk 150 ft (QC): 6 (/c FWW) Walking 10ft on Uneven Surface: 6 (/c FWW) 1 Step (curb) (QC): 4 (SBA /c prn sequence cues) 4 Steps (QC): 4 (SBA /c prn sequence cues) 12 Steps (QC): 4 (SBA /c prn sequence cues) Picking up an Object (QC): 6 (/c or without device) Does the Pt use WC or Scooter?: No Wheel 50 feet with 2 turns (QC: 9 Wheel 150 feet: 9 PT Plan Problem List Problem List: Functional Strength, ROM Treatment/Plan Treatment Plan: Continue Plan of Care Treatment Plan: Bed Mobility, Concurrent Therapy, Education, Functional Activity Kendell, Functional Strength, Group Therapy, Gait, Safety, Therapeutic Exercise, Transfers Treatment Duration: Aug 27, 2023 Frequency: At least 5 of 7 days/Wk (IRF) Estimated Hrs Per Day: Other (75 minutes per day) Patient and/or Family Agrees t: Yes Safety Risks/Education Patient Education: Reviewed Precautions, Correct Positioning, Disease Process, Safety Issues Teaching Recipient: Patient Teaching Methods: Demonstration, Handout, Discussion Response to Teaching: Verbalize Understanding, Return Demonstration Discharge Recommendations Plan Continue with tx per pt POC. Will have pt walk in (II) with (B) UE hovering, in attempt to walk /s FWW, as circumstances permit. Time Time In: 1230 Time Out: 1345 DATE: Aug 19, 2023 Total Billed Treatment Time: 75 Total Billed Treatment 1, FA (15m), GT (15m), EX3 (45m) LEILANI ESPINOSA RETAIL PARTS PROFESSIONAL Aug 19, 2023 13:43
--- NOTE | 2023-08-19 16:12 | Speech Therapy Daily Note ---
Speech Daily Progress Note Subjective Date Seen by Provider: Aug 19, 2023 Time Seen by Provider: 14:15 Pt agreeable to session, grandson and daughter were present Objective Pt participates in a maze task, but was unable to finish correctly. The pt was given 3 minutes, but wanted to keep trying to finish, after a few more minutes RACE CAR MECHANIC discontinued task. Pt completes problem solving task and 2 units of information, pt completes with <25% accuracy with visual cues. Pt completes mental manipulation tasks, repeating 3 words backwards, completes with 60% accuracy and mod verbal cues. Assessment Assessment Current Status: Good Progress Treatment Plan Continue Plan of Care Speech Waste Reduction Coordinator Goals Chcf Goals Pt will demonstrate the ability to follow multi-step directions related to functional living environment with 85% accuracy. Pt will complete working memory tasks given auditory information with 85% accuracy. Pt will complete generative naming tasks with 85% accuracy. Speech-Plan Treatment Plan Speech Therapy Treatment Plan: Continue Plan of Care Frequency: At least 5 of 7 days/Wk (IRF) Estimated Hrs Per Day: .5 hour per day Rehab Potential: Good Time Speech Therapy Time In: 14:15 Speech Therapy Time Out: 14:45 DATE: Aug 19, 2023 Total Billed Time: 30 Billed Treatment Time 1 Dominique Fowler Aug 19, 2023 16:12
[2023-08-19] MEDS: ACETAMINOPHEN 325 MG TABLET PO PRN (17:27)
[2023-08-19 20:40] VITALS: BP 113/56
[2023-08-19] MEDS: amLODIPine 10 MG TABLET PO SCH (21:07)
--- NOTE | 2023-08-20 05:36 | Individualized Plan of Care ---
Individualized Plan of Care Rehab Nursing IPOC Order Admission Date Aug 18, 2023 at 10:15 Current Orders Orders Admission Arrival Bed Request (08/18/23 10:24) General/Regular (08/18/23 Lunch) Admission Order(Inpt,Obs,Sdc) (08/18/23 12:04) Vital Signs: Per Unit Policy ( 08,16,00 (08/18/23 12:04) Shaka Hose , (08/18/23 12:04) Sequential Compression Device Q12HX1 (08/18/23 12:04) Deck Mate-Inpt Rehab Con (08/18/23 12:04) Rehab Nursing Orders-Ipoc (08/18/23 12:04) Physical Therapy Rehab Orders (08/18/23 12:04) Occupational Therapy Rehab Ord (08/18/23 12:04) Speech Therapy Rehab Orders (08/18/23 12:04) Cbc And Automated Diff (08/19/23 06:00) Comprehensive Metabolic Panel (08/19/23 06:00) Precautions (Aru) (08/18/23 12:04) Weekly Weight WEEK (08/18/23 12:04) Rehab-Intensity Of Therapy (08/18/23 12:04) Initiate Admission Nursing Pro .admission (08/18/23 12:04) Calcium Carbonate Chew Tablet (Calcium C (08/18/23 12:15) Diphenhydramine Tablet (Diphenhydramine (08/18/23 12:15) Docusate Sodium Capsule (Docusate Sodium (08/18/23 21:00) Docusate Sodium Capsule (Docusate Sodium (08/18/23 12:15) Bisacodyl Suppository (Bisacodyl Supposi (08/18/23 12:15) Lactulose Oral Solution (Enulose Oral So (08/18/23 12:15) Na Phos/Na Biphos Adult Enema (Na Phos/N (08/18/23 12:15) Guaifenesin/Codeine Syrup (Guaifenesin/C (08/18/23 12:15) Loperamide Capsule (Loperamide Capsule) (08/18/23 12:15) Melatonin Tablet (Melatonin Tablet) (08/18/23 12:15) Polyethylene Glycol Powder (Polyethylen (08/18/23 21:00) Ondansetron Oral Dissolve Tab (Ondanset (08/18/23 12:15) Senna W/Docusate Tablet (Senna W/Docusat (08/18/23 21:00) Acetaminophen Tablet (Acetaminophen Ta (08/18/23 12:15) Initiate Admission Nursing Pro .admission (08/18/23 12:04) Code/Resuscitation (08/18/23 12:06) Dressing Order (Intervention) DAILY (08/18/23 12:06) Shaka Hagan (08/18/23 12:06) Up With Assistance As Tolerate (08/18/23 12:06) Vital Signs: Every 4 Hours (Or (08/18/23 12:06) Weight Bearing As Tolerated (08/18/23 12:06) Albuterol Pre-Mix Nebs (Rt) (Albuterol (08/18/23 12:15) Atorvastatin Tablet (Atorvastatin Tablet (08/18/23 21:00) Diphenhydramine Injection (Diphenhydram (08/18/23 12:15) Diphenhydramine Tablet (Diphenhydramine (08/18/23 12:15) Docusate Sodium Capsule (Docusate Sodium (08/18/23 21:00) Bisacodyl Suppository (Bisacodyl Supposi (08/18/23 12:15) Hydrocodone/Apap 5/325 Tablet (Hydrocod (08/18/23 12:15) Lactulose Oral Solution (Enulose Oral So (08/18/23 21:00) Melatonin Tablet (Melatonin Tablet) (08/18/23 12:15) Milk Of Magnesia Oral Susp (Milk Of Magn (08/18/23 12:15) Polyethylene Glycol Powder (Polyethylen (08/18/23 12:15) Antacid Suspension (Antacid Suspension (08/18/23 12:15) Sennosides Tablet (Sennosides Tablet) (08/19/23 09:00) Calcium Carbonate Chew Tablet (Calcium C (08/18/23 12:15) Acetaminophen Tablet (Acetaminophen Ta (08/18/23 12:15) Ondansetron Injection (Ondansetron Inj (08/18/23 12:15) Ondansetron Oral Dissolve Tab (Ondanset (08/18/23 12:15) Amlodipine Tablet (Amlodipine Tablet) (08/18/23 21:00) Fentanyl Injection (Fentanyl Injection (08/18/23 12:15) Metoprolol Succinate (Xl) Tab (Metoprolo (08/19/23 09:00) Oxycodone Immediate Rel Tablet (Oxycodon (08/18/23 12:15) Tramadol Tablet (Ultram Tablet) (08/18/23 12:15) Consult Orthopedic Surgery (08/18/23 12:06) Mat Initiate Protocol (08/18/23 12:06) Svn Small Volume Nebulizer (08/18/23 12:06) Ice: Apply To Affected Area (08/18/23 12:06) Incentive Spirometry (Nursing) Q2H (08/18/23 12:06) Sequential Compression Device Q12HX1 (08/18/23 12:06) Svn Small Volume Nebulizer (08/18/23 12:06) Patient Visit (08/18/23 ) Pt Eval Moderate Complexity (08/18/23 ) Patient Visit (08/18/23 ) Functional Activities, Ea 15 (08/18/23 ) Gait Training, Ea 15 Min (08/18/23 ) Patient Visit (08/18/23 ) Speech Sound Lang Comp (08/18/23 ) Patient Visit (08/19/23 ) Functional Activities, Ea 15 (08/19/23 ) Gait Training, Ea 15 Min (08/19/23 ) Exercise Therap, Ea 15 Min (08/19/23 ) Patient Visit (08/19/23 ) Treat. Speech/Lang/Voice (08/19/23 ) Rehab Nursing Orders: Ongoing Assess. of Cognitive Status, Ongoing Assess. of Function Status, Bladder Management, Bladder Scan, Bladder Training, Bowel Management, Bowel Training, Disease Management & Educaiton, DVT Prophylaxis, Fall Prevention, Fluid/Electrolyte/Nutrition Mgmt, Infection Prevention, Medication Management & Education, Management of Risks & Complications, Loreta gement of Skin Intergrity, Nutrition Management, Pain Management, Patient/Family Support, Safety Management, Wound Management Intensity of Therapy to be met Patient to be seen: Min.3h per day/5 of 7d PT IPOC Problem List: Functional Strength, ROM Treatment Plan: Continue Plan of Care Bed Mobility, Concurrent Therapy, Education, Functional Activity Kendell, Functional Strength, Group Therapy, Gait, Safety, Therapeutic Exercise, Transfers Treatment Duration: Aug 27, 2023 Frequency: At least 5 of 7 days/Wk (IRF) Estimated Hrs Per Day: Other (75 minutes per day) OT IPOC Problems: Decreased Activ Tolerance, Decreased UE Strength, Impaired Funct Balance, Impaired I ADL's, Impaired Self-Care Skills OT Treatment, Training and Edu: Yes Plan of Care: ADL Retraining, Functional Mobility, Group Exercise/Act as Ind, UE Funct Exercise/Act Treatment Duration: Sep 11, 2023 Frequency: At least 5 of 7 days/Wk (IRF) Estimated Hrs Per Day: Other (75 mins per day) ST IPOC Speech Therapy Treatment Plan: Continue Plan of Care Treatment Duration: Aug 20, 2023 Frequency: At least 5 of 7 days/Wk (IRF) Estimated Hrs Per Day: .5 hour per day Deck Mate/Case Mgmt Deck Mate/Case Managemen: Discharge Planning Dietitian/Senior Counsel Commercial Dietitian/Senior Counsel Commercial to monitor nutritional status and make changes and/or recommendations as needed and work with speech pathology on dietary upgrades as the occur. Physician IPOC Medical Issues being managed closely and that require the 24 hour availability of a physician: Recent hip fracture with post op anemia with h/o HTN will be high risk for decompensation and will require monitoring of labs and vitals monitoring. Medical Issues: Bowel/Bladder Function, DVT Prophylaxis, Falls Precautions, Fluid/Electrolyte/Nutrition Balance, Infection Protection, Pain Management, Weight Bearing Precautions, Wound Care Brief Synthesis of Preadmission Screen, Post-Admission Evaluation, and Therapy Evaluations: PT OT will focus on regaining function with the use of AD in order to regain stamina and help increase independence with ADL's in order to go home Medical Prognosis: Good Anticipated Length of Stay: 7 days EDDI CURRIE DO Aug 20, 2023 05:36
--- NOTE | 2023-08-20 05:36 | PM&R Progress Note ---
Subjective HPI/CC On Admission Date Seen by Provider: Aug 20, 2023 Time Seen by Provider: 10:00 Subjective/Events-last exam 08/20/2023: Improved ambulation No falls Reviewed meds and labs No pain reported 08/19/2023: Patient doing well Pain is controlled Participating in therapy Bowels are moving Eating and drinking Review of Systems General: Fatigue, Malaise Objective Exam Vital Signs Vital Signs Date Time Temp Pulse Resp B/P (MAP) Pulse Ox O2 Delivery O2 Flow Rate FiO2 08/20/23 09:00 Room Air 08/20/23 08:00 36.8 82 16 121/58 (79) 97 Capillary Refill : General Appearance: No Apparent Distress, WD/WN HEENT: PERRL/EOMI, Normal ENT Inspection, Pharynx Normal Neck: Full Range of Motion, Normal Inspection, Non Tender, Supple, Carotid Bruit Respiratory: Chest Non Tender, Lungs Clear, Normal Breath Sounds, No Accessory Muscle Use, No Respiratory Distress Cardiovascular: Regular Rate, Rhythm, No Edema, No Gallop, No JVD, No Murmur, Normal Peripheral Pulses Gastrointestinal: Normal Bowel Sounds, No Organomegaly, No Pulsatile Mass, Non Tender, Soft Back: Normal Inspection, No CVA Tenderness, No Vertebral Tenderness Extremity: Normal Capillary Refill, Normal Inspection, Normal Range of Motion (Except right leg), Non Tender, No Calf Tenderness, No Pedal Edema Neurologic/Psychiatric: Alert, Oriented x3, Normal Mood/Affect, 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 FIM Transfers Therapy Code Descriptions/Definitions Functional [place] Measure: 0=Not Assessed/NA 4=Minimal Assistance 1=Total Assistance 5=Supervision or Setup 2=Maximal Assistance 6=Modified [place] 3=Moderate Assistance 7=Complete IndependenceSCALE: Activities may be completed with or without assistive devices. 8-Rgoldmvsgn-jxzuvcd completes the activity by him/herself with no assistance from a helper. 5-Set-up or Clean-up Assistance-helper sets up or cleans up; patient completes activity. [place] assists only prior to or following the activity. 4-Supervision or Touching Assistance-helper provides verbal cues and/or touching/steadying and/or contact guard assistance as patient completes activity. Assistance may be provided throughout the activity or intermittently. 3-Partial/Moderate Assistance-helper does LESS THAN HALF the effort. [place] lifts, holds or supports trunk or limbs, but provides less than half the effort. 2-Substantial/Maximal Assistance-helper does MORE THAN HALF the effort. [place] lifts or holds trunk or limbs and provides more than half the effort. 5-Kuzcjgmyo-zkfoee does ALL the effort. Patient does none of the effort to complete the activity. Or, the assistance of 2 or more helpers is required for the patient to complete the activity. If activity was not attempted, code reason: 7-Patient Refused. 9-Not Applicable-not attempted and the patient did not perform the activity before the current illness, exacerbation or injury. 10-Not Attempted due to Environmental Limitations-(lack of equipment, weather restraints, etc.). 88-Not Attempted due to Medical Conditions or Safety Concerns. Roll Left to Right (QC): 5 (/c bed rail to (L)) Sit to Lying (QC): 6 Sit to Stand (QC): 6 Chair/Cmv-yx-Aqhpr Xfer(QC): 6 Car Transfer (QC): 3 (min (A) to lift (R) leg into car) Gait Training Does the Patient Walk?: Yes Distance: 80' x2 Walk 10 feet (QC): 6 Walk 50 ft with 2 Turns(QC): 4 Walk 150 ft (QC): 4 (CGA /c FWW) Walking 10ft/uneven surface-QC: 3 (min (A) /c FWW) Gait Persons Needed: 1 Gait Assistive Device: FWW Wheelchair Training Does the Pt Use a Wheelchair?: No Wheel 50 ft with 2 turns (QC): 9 Wheel 150 ft (QC): 9 Stair Training 1 Step (curb) (QC): 3 (mod (A) for support and cues to step up with good leg first, used FWW) 4 Steps (QC): 3 (min (A) /c (B) rails, mod sequence cues) 12 Steps (QC): 3 (Min (A) /c mod cues to repeat correct sequence) Balance Picking up an Object (QC): 4 (CGA using FWW and filling hand) ADL-Treatment Eating (QC): 6 Oral Hygiene (QC): 4 (SBA standing at sink) Shower/Bathe Self (QC): 4 (SBA) Upper Body Dressing (QC): 5 Lower Body Dressing (QC): 4 (SBA) On/Off Footwear (QC): 3 (Mod A overall donning/doffing gripper socks and compression socks. ) Toileting Hygiene (QC): 4 (SBA) Toilet Transfer (QC): 4 (SBA) Assessment/Plan Assessment and Plan Assess & Plan/Chief Complaint Assessment: Right hip fracture HTN HLP Post op acute blood loss anemia Post op constipation 08/19/2023: Supportive care Monitor closely Continue aggressive therapy 08/20/2023: Continue aggressive therapy Pain controlled (1) Femoral neck fracture EDDI CURRIE DO Aug 20, 2023 05:36
--- NOTE | 2023-08-20 07:46 | Progress Note ---
Standard Progress Note Progress Notes/Assess & Plan Date Seen by a Provider: Aug 20, 2023 Time Seen by a Provider: 07:35 Progress/Assessment & Plan no complaints R hip incision clean and dry no calf tenderness neg Samira's s/p R hip bipolar PT/OT Final Diagnosis No complaints RLE neg Samira's no calf tenderness s/p R hip bipolar PT/OT EVA JAIME MD Aug 20, 2023 07:46
[2023-08-20 08:00] VITALS: BP 121/58
--- NOTE | 2023-08-20 08:23 | Occupational Ther Daily Note ---
OT Current Status-Daily Note Subjective Pt alert, sitting in recliner. Pt agrees to therapy. No c/o pain. Mental Status/Objective Patient Orientation: Person, Place, Time, Situation ADL-Treatment Sitting/standing at sink, pt completed oral care independently. Sitting standing at sink, pt completed sponge bath independently. Set up for UBD. Pt educated on using sock aide to don socks then pt demonstrated understanding, using ham boner to doff socks. Independent with toileting. Cues to dress surgical LE first then pt completed rest of LBD by self. After session, pt standing at sink with nrsg in room. Daughter present. All needs met. Therapy Code Descriptions/Definitions Functional [place] Measure: 0=Not Assessed/NA 4=Minimal Assistance 1=Total Assistance 5=Supervision or Setup 2=Maximal Assistance 6=Modified [place] 3=Moderate Assistance 7=Complete IndependenceSCALE: Activities may be completed with or without assistive devices. 9-Ertvulgfta-nvatnkd completes the activity by him/herself with no assistance from a helper. 5-Set-up or Clean-up Assistance-helper sets up or cleans up; patient completes activity. [place] assists only prior to or following the activity. 4-Supervision or Touching Assistance-helper provides verbal cues and/or touching/steadying and/or contact guard assistance as patient completes activity. Assistance may be provided throughout the activity or intermittently. 3-Partial/Moderate Assistance-helper does LESS THAN HALF the effort. [place] lifts, holds or supports trunk or limbs, but provides less than half the effort. 2-Substantial/Maximal Assistance-helper does MORE THAN HALF the effort. [place] lifts or holds trunk or limbs and provides more than half the effort. 1-Qosnaudxk-vzbjdb does ALL the effort. Patient does none of the effort to complete the activity. Or, the assistance of 2 or more helpers is required for the patient to complete the activity. If activity was not attempted, code reason: 7-Patient Refused. 9-Not Applicable-not attempted and the patient did not perform the activity before the current illness, exacerbation or injury. 10-Not Attempted due to Environmental Limitations-(lack of equipment, weather restraints, etc.). 88-Not Attempted due to Medical Conditions or Safety Concerns. Oral Hygiene (QC): 6 Upper Body Dressing (QC): 5 Lower Body Dressing (QC): 4 On/Off Footwear: 4 Toileting Hygiene (QC): 6 Toilet Transfer (QC): 6 OT Mcc Goals Home Teaching Grades 7 And 8 Teacher Goals Time Frame: Sep 11, 2023 Acute change in mental status: 0 Inattention: 0 Disorganized thinkin Altered level of consciousness: 0 Eating (QC): 6 Oral Hygiene (QC): 6 Toileting Hygiene (QC): 6 Shower/Bathe Self (QC): 6 Upper Body Dressing (QC): 6 Lower Body Dressing (QC): 6 On/Off Footwear (QC): 6 Additional Goals: 1-Demonstrate ADL Tasks, 2-Verbalize Understanding, 3- ImproveStrength/Kendell 1=Demonstrate adherence to instructed precautions during ADL tasks. 2=Patient will verbalize/demonstrate understanding of assistive devices/modifications for ADL. 3=Patient will improve strength/tolerance for activity to enable patient to perform ADL's. OT Education/Plan Problem List/Assessment Assessment: Impaired Self-Care Skills Discharge Recommendations Plan/Recommendations: Continue POC Treatment Plan/Plan of Care Patient would benefit from OT for education, treatment and training to promote independence in ADL's, mobility, safety and/or upper extremity function for ADL's. Plan of Care: ADL Retraining, Functional Mobility, Group Exercise/Act as Ind, UE Funct Exercise/Act Treatment Duration: Sep 11, 2023 Frequency: At least 5 of 7 days/Wk (IRF) Estimated Hrs Per Day: Other (75 mins per day) Rehab Potential: Good Time Start Time: 08:00 Stop Time: 08:45 DATE: Aug 20, 2023 Total Time Billed (hr/min): 45 Billed Treatment Time 1 visit-ADL 3 (45 min) ALCON ROSADO Aug 20, 2023 08:23
[2023-08-20] MEDS: LACTULOSE SYRUP 10GM/15ML 30ML UDC PO SCH ×2 (08:54→20:58)
[2023-08-20] MEDS: SENNOSIDES 8.6 MG TABLET PO SCH (08:54)
[2023-08-20] MEDS: DOCUSATE SODIUM 100 MG CAPSULE PO SCH ×2 (08:54→20:56)
--- NOTE | 2023-08-20 09:29 | Physical Therapy Daily Note ---
PT Daily Note-Current Subjective Pt presents sitting in recliner with daughter present in room. Pt denies pain and is agreeable to tx. Pain Section J - Health Conditions 1. Rarely or not at all 2. Occasionally 3. Frequently 4. Almost constantly 8. Unable to answer Pain Effect on Sleep: 1 Pain Interference with Therapy: 1 Pain Interference w/Day-to-Day: 1 Mental Status Patient Orientation: Person, Place, Time, Situation Transfers SCALE: Activities may be completed with or without assistive devices. 4-Vlroabjemt-mfzqmcf completes the activity by him/herself with no assistance from a helper. 5-Set-up or Clean-up Assistance-helper sets up or cleans up; patient completes activity. [place] assists only prior to or following the activity. 4-Supervision or Touching Assistance-helper provides verbal cues and/or touching/steadying and/or contact guard assistance as patient completes activity. Assistance may be provided throughout the activity or intermittently. 3-Partial/Moderate Assistance-helper does LESS THAN HALF the effort. [place] lifts, holds or supports trunk or limbs, but provides less than half the effort. 2-Substantial/Maximal Assistance-helper does MORE THAN HALF the effort. [place] lifts or holds trunk or limbs and provides more than half the effort. 1-Zxwkwqpwf-yacrqy does ALL the effort. Patient does none of the effort to complete the activity. Or, the assistance of 2 or more helpers is required for the patient to complete the activity. If activity was not attempted, code reason: 7-Patient Refused. 9-Not Applicable-not attempted and the patient did not perform the activity before the current illness, exacerbation or injury. 10-Not Attempted due to Environmental Limitations-(lack of equipment, weather restraints, etc.). 88-Not Attempted due to Medical Conditions or Safety Concerns. Sit to Stand (QC): 6 Weight Bearing Right Lower Extremity: Right Weight Bearing/Tolerated Left Lower Extremity: Left Full Weight Bearing Gait Training Does the Patient Walk?: Yes Walk 10 feet (QC): 6 Walk 50 ft with 2 Turns(QC): 6 Walk 150 ft (QC): 6 Gait Assistive Device: FWW Pt amb ~240' from room and around ARU with FWW, Independently. Wheelchair Training Does the Pt Use a Wheelchair?: No Exercises Standing: Hip Abduction ((L) LE only), Marching, Side steps ((L) LE only), Weight shifts (B) LE Toe touch x 10 reps Treatments Pt amb from room and around ARU with FWW, Independently. Pt conducted standing ther ex at end of hallway. Post tx with pt in chair in ARU common area, nursing aware and all needs met. Assessment Current Status: Good Progress Pt improving with hip flexor strengthening for more functional mobility. PT Detention Goals Grapple Yarder Operator Goals PT Grapple Yarder Operator Goals Time Frame: Aug 27, 2023 Roll Left & Right (QC): 6 Sit to Lying (QC): 6 Lying-Sitting on Side/Bed(QC): 6 Sit to Stand (QC): 6 Chair/Ffu-hx-Znjal Xfer(QC): 6 (/c FWW) Toilet Transfer (QC): 6 (/c FWW) Car Transfer (QC): 6 (/c FWW) Does the Patient Walk: Yes Walk 10 feet (QC): 6 (/c FWW) Walk 50ft with 2 Turns (QC): 6 (/c FWW) Walk 150 ft (QC): 6 (/c FWW) Walking 10ft on Uneven Surface: 6 (/c FWW) 1 Step (curb) (QC): 4 (SBA /c prn sequence cues) 4 Steps (QC): 4 (SBA /c prn sequence cues) 12 Steps (QC): 4 (SBA /c prn sequence cues) Picking up an Object (QC): 6 (/c or without device) Does the Pt use WC or Scooter?: No Wheel 50 feet with 2 turns (QC: 9 Wheel 150 feet: 9 PT Plan Problem List Problem List: Functional Strength, ROM Treatment/Plan Treatment Plan: Continue Plan of Care Treatment Plan: Bed Mobility, Concurrent Therapy, Education, Functional Activity Kendell, Functional Strength, Group Therapy, Gait, Safety, Therapeutic Exercise, Transfers Treatment Duration: Aug 27, 2023 Frequency: At least 5 of 7 days/Wk (IRF) Estimated Hrs Per Day: Other (75 minutes per day) Patient and/or Family Agrees t: Yes Safety Risks/Education Patient Education: Reviewed Precautions Teaching Recipient: Patient Teaching Methods: Demonstration, Handout, Discussion Response to Teaching: Verbalize Understanding, Return Demonstration Discharge Recommendations Plan Continue with tx per pt POC. Time Time In: 09 Time Out: 929 DATE: Aug 20, 2023 Total Billed Treatment Time: 30 Total Billed Treatment 1, EX (20m), GT (10m) LEILANI ESPINOSA CAMPAIGN MARKETING MANAGER Aug 20, 2023 09:29
--- NOTE | 2023-08-20 11:46 | Therapy Group Daily Note ---
Therapy Daily Group Note Patient Education Topic Exercises Exercises Fine Motor, UE Exercise Session Ratio (pt:therapist): 3:1 Goal of Session: UE/LE Strengthing Goal Met for this Session: Yes Pt Benefit of Group: Contributions to Others, Increased Functional Strength, Recognition of Peers, Socialization Other/Notes Pt ambulated to group using FWW. Group consisted of introductions, socialization, Thanksgiving trivia and B UE exercises for gross/fine motor st rengthening and coordination. Pt introduced self appropriately and actively listened to peers. Pt participated in multiple B UE exercises with skilled instruction for correct technique and modifications when needed. Pt participated in trivia for dual task with exercises and was able to answer questions and converse with peers throughout appropriately. After session, pt left in care of PT. All needs met. Start Time: 10:30 Stop Time: 11:30 Total Billed Treatment Time: 60 Total Billed Treatment 1-GRP ALCON ROSADO Aug 20, 2023 11:46
--- NOTE | 2023-08-20 11:54 | Therapy Group Daily Note ---
Therapy Daily Group Note Patient Education Topic Exercises, Other List Below Exercises LE Seated Exercise, LE Standing Exercise, Balance, Stretching, Gross Motor, UE Exercise Session Ratio (pt:therapist): 3:1 Goal of Session: Memory Strategies, UE/LE Strengthing Goal Met for this Session: Yes Pt Benefit of Group: Contributions to Others, Increased Functional Strength, Improved Cognition, Recognition of Peers, Socialization Other/Notes Pt amb /c FWW, independently to PT group in therapy gym. Group consisted of introductions (name, place living, Thanksgiving family traditions), socializ ation, (B) UE/LE seated and standing (with (B) UE support on FWW) exercises, education and activities on memory strategies. Pt introduced self appropriately and actively listened to peers. Pt able to complete (B) UE/LE seated and standing exercises and tolerated well. Pt participated in activities and demonstrated understanding of memory education by vocalizing own strategies and ideas. Post therapy tx, pt left in care of OT. All needs met. Start Time: 09:30 Stop Time: 10:30 Total Billed Treatment Time: 60 Total Billed Treatment 1, GRP LEILANI ESPINOSA GRAIN LOADER Aug 20, 2023 11:54
[2023-08-20 20:05] VITALS: BP 121/58
[2023-08-20 20:39] VITALS: BP 139/64
[2023-08-20] MEDS: amLODIPine 10 MG TABLET PO SCH (20:56)
--- NOTE | 2023-08-21 07:00 | PM&R Progress Note ---
Subjective HPI/CC On Admission Date Seen by Provider: Aug 21, 2023 Time Seen by Provider: 12:30 Subjective/Events-last exam 08/21/2023: Patient doing really well Family wants her to go home on Thursday Walking around very well Pain is controlled 08/20/2023: Improved ambulation No falls Reviewed meds and labs No pain reported 08/19/2023: Patient doing well Pain is controlled Participating in therapy Bowels are moving Eating and drinking Review of Systems General: Fatigue, Malaise Objective Exam Vital Signs Vital Signs Date Time Temp Pulse Resp B/P (MAP) Pulse Ox O2 Delivery O2 Flow Rate FiO2 08/21/23 09:00 93 Room Air 08/21/23 08:52 0.00 08/21/23 08:00 36.1 97 17 113/58 (76) 08/20/23 20:05 21 Capillary Refill : General Appearance: No Apparent Distress, WD/WN HEENT: PERRL/EOMI, Normal ENT Inspection, Pharynx Normal Neck: Full Range of Motion, Normal Inspection, Non Tender, Supple, Carotid Bruit Respiratory: Chest Non Tender, Lungs Clear, Normal Breath Sounds, No Accessory Muscle Use, No Respiratory Distress Cardiovascular: Regular Rate, Rhythm, No Edema, No Gallop, No JVD, No Murmur, Normal Peripheral Pulses Gastrointestinal: Normal Bowel Sounds, No Organomegaly, No Pulsatile Mass, Non Tender, Soft Back: Normal Inspection, No CVA Tenderness, No Vertebral Tenderness Extremity: Normal Capillary Refill, Normal Inspection, Normal Range of Motion (Except right leg), Non Tender, No Calf Tenderness, No Pedal Edema Neurologic/Psychiatric: Alert, Oriented x3, Normal Mood/Affect, safety lamp keeper II-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 FIM Transfers Therapy Code Descriptions/Definitions Functional [place] Measure: 0=Not Assessed/NA 4=Minimal Assistance 1=Total Assistance 5=Supervision or Setup 2=Maximal Assistance 6=Modified [place] 3=Moderate Assistance 7=Complete IndependenceSCALE: Activities may be completed with or without assistive devices. 6-Dcytfpsghp-mjamnky completes the activity by him/herself with no assistance from a helper. 5-Set-up or Clean-up Assistance-helper sets up or cleans up; patient completes activity. [place] assists only prior to or following the activity. 4-Supervision or Touching Assistance-helper provides verbal cues and/or touching/steadying and/or contact guard assistance as patient completes activity. Assistance may be provided throughout the activity or intermittently. 3-Partial/Moderate Assistance-helper does LESS THAN HALF the effort. [place] lifts, holds or supports trunk or limbs, but provides less than half the effort. 2-Substantial/Maximal Assistance-helper does MORE THAN HALF the effort. [place] lifts or holds trunk or limbs and provides more than half the effort. 9-Khrzowakq-cgpbku does ALL the effort. Patient does none of the effort to complete the activity. Or, the assistance of 2 or more helpers is required for the patient to complete the activity. If activity was not attempted, code reason: 7-Patient Refused. 9-Not Applicable-not attempted and the patient did not perform the activity before the current illness, exacerbation or injury. 10-Not Attempted due to Environmental Limitations-(lack of equipment, weather restraints, etc.). 88-Not Attempted due to Medical Conditions or Safety Concerns. Roll Left to Right (QC): 5 (/c bed rail to (L)) Sit to Lying (QC): 6 Sit to Stand (QC): 6 Chair/Oxg-rh-Wcyxr Xfer(QC): 6 Car Transfer (QC): 3 (min (A) to lift (R) leg into car) Gait Training Does the Patient Walk?: Yes Distance: 80' x2 Walk 10 feet (QC): 6 Walk 50 ft with 2 Turns(QC): 6 Walk 150 ft (QC): 6 Walking 10ft/uneven surface-QC: 3 (min (A) /c FWW) Gait Persons Needed: 1 Gait Assistive Device: FWW Wheelchair Training Does the Pt Use a Wheelchair?: No Wheel 50 ft with 2 turns (QC): 9 Wheel 150 ft (QC): 9 Stair Training 1 Step (curb) (QC): 3 (mod (A) for support and cues to step up with good leg first, used FWW) 4 Steps (QC): 3 (min (A) /c (B) rails, mod sequence cues) 12 Steps (QC): 3 (Min (A) /c mod cues to repeat correct sequence) Balance Picking up an Object (QC): 4 (CGA using FWW and ceramic engineer) ADL-Treatment Eating (QC): 6 Oral Hygiene (QC): 6 Shower/Bathe Self (QC): 4 (SBA) Upper Body Dressing (QC): 5 Lower Body Dressing (QC): 4 On/Off Footwear (QC): 4 Toileting Hygiene (QC): 6 Toilet Transfer (QC): 6 Assessment/Plan Assessment and Plan Assess & Plan/Chief Complaint Assessment: Right hip fracture HTN HLP Post op acute blood loss anemia Post op constipation 08/19/2023: Supportive care Monitor closely Continue aggressive therapy 08/20/2023: Continue aggressive therapy Pain controlled 08/21/2023: Pain control Ambulate Discharge home on Thursday? (1) Femoral neck fracture EDDI CURRIE DO Aug 21, 2023 07:00
[2023-08-21 08:00] VITALS: BP 113/58
[2023-08-21] MEDS: SENNOSIDES 8.6 MG TABLET PO SCH (10:04)
[2023-08-21] MEDS: DOCUSATE SODIUM 100 MG CAPSULE PO SCH ×2 (10:04→21:14)
[2023-08-21] MEDS: LACTULOSE SYRUP 10GM/15ML 30ML UDC PO SCH ×2 (10:05→21:14)
--- NOTE | 2023-08-21 10:08 | Physical Therapy Daily Note ---
PT Daily Note-Current Subjective Pt sitting in recliner w/Son & Daughter present. Pt agrees to Pt tx then joined by [employer] for Family Training. Pain Location: No Pain Reported Section J - Health Conditions 1. Rarely or not at all 2. Occasionally 3. Frequently 4. Almost constantly 8. Unable to answer Pain Effect on Sleep: 1 Pain Interference with Therapy: 1 Pain Interference w/Day-to-Day: 1 Mental Status Patient Orientation: Person, Place, Time, Situation Transfers SCALE: Activities may be completed with or without assistive devices. 8-Kophiqtyvn-vyszemb completes the activity by him/herself with no assistance from a helper. 5-Set-up or Clean-up Assistance-helper sets up or cleans up; patient completes activity. [place] assists only prior to or following the activity. 4-Supervision or Touching Assistance-helper provides verbal cues and/or touching/steadying and/or contact guard assistance as patient completes activity. Assistance may be provided throughout the activity or intermittently. 3-Partial/Moderate Assistance-helper does LESS THAN HALF the effort. [place] lifts, holds or supports trunk or limbs, but provides less than half the effort. 2-Substantial/Maximal Assistance-helper does MORE THAN HALF the effort. [place] lifts or holds trunk or limbs and provides more than half the effort. 9-Mlbrofvon-dzeeju does ALL the effort. Patient does none of the effort to complete the activity. Or, the assistance of 2 or more helpers is required for the patient to complete the activity. If activity was not attempted, code reason: 7-Patient Refused. 9-Not Applicable-not attempted and the patient did not perform the activity before the current illness, exacerbation or injury. 10-Not Attempted due to Environmental Limitations-(lack of equipment, weather restraints, etc.). 88-Not Attempted due to Medical Conditions or Safety Concerns. Sit to Stand (QC): 6 Car Transfer (QC): 5 Weight Bearing Right Lower Extremity: Right Weight Bearing/Tolerated Left Lower Extremity: Left Full Weight Bearing Gait Training Does the Patient Walk?: Yes Distance: 200', 350' Walk 10 feet (QC): 6 Walk 50 ft with 2 Turns(QC): 6 Walk 150 ft (QC): 6 Gait Assistive Device: FWW Wheelchair Training Does the Pt Use a Wheelchair?: No Stair Training Stair Training: Handrails/: 1 handrail #of Steps: 16 1 Step (curb) (QC): 5 4 Steps (QC): 5 12 Steps (QC): 5 Stairs: Pattern: Step to Treatments [id number]: PLUMBING AND HEATING MECHANIC began talking to family & pt as family had already had already at start of PT tx. Family training completed with OT/PT co-treat ([id number]), skills of 2 clinicians required for skilled instruction/education during family training to provide safe family assistance at home for pt's independence. PT focusing on ambulation, transfers and all mobility while OT focusing on ADLs, functional mobility and AE needed to maintain hip precautions. Family was able to complete stairs safely with pt multiple times. Questions concerning bed mobility, AE/AD needed, stairs and FWW were answered, family had no more questions. Pt has FWW that family will bring up to size before pt discharges. After therapy, pt sitting in recliner with call light/phone in reach. All needs met in room. [id number]: Pt's family had broughten FWW up for pt to use so PLUMBING AND HEATING MECHANIC checked sizing and had pt TF to standing from bed and amb in hallway to check FWW. Pt liked how FWW felt and PLUMBING AND HEATING MECHANIC agreed that FWW demonstration went well so pt returned to room to rest in bed and visit w/company at end of tx. All needs met, call light in hand. Assessment Current Status: Good Progress Pt fam. tx well and has improved on an already higher function start of ARU stay. Pt is completing transfers, mobility and increased activity tolerance well. PT Jail Goals Foster Care Therapist Goals PT Jail Goals Time Frame: Aug 27, 2023 Roll Left & Right (QC): 6 Sit to Lying (QC): 6 Lying-Sitting on Side/Bed(QC): 6 Sit to Stand (QC): 6 Chair/Ajy-ud-Tkwpt Xfer(QC): 6 (/c FWW) Toilet Transfer (QC): 6 (/c FWW) Car Transfer (QC): 6 (/c FWW) Does the Patient Walk: Yes Walk 10 feet (QC): 6 (/c FWW) Walk 50ft with 2 Turns (QC): 6 (/c FWW) Walk 150 ft (QC): 6 (/c FWW) Walking 10ft on Uneven Surface: 6 (/c FWW) 1 Step (curb) (QC): 4 (SBA /c prn sequence cues) 4 Steps (QC): 4 (SBA /c prn sequence cues) 12 Steps (QC): 4 (SBA /c prn sequence cues) Picking up an Object (QC): 6 (/c or without device) Does the Pt use WC or Scooter?: No Wheel 50 feet with 2 turns (QC: 9 Wheel 150 feet: 9 PT Plan Treatment/Plan Treatment Plan: Continue Plan of Care Treatment Plan: Bed Mobility, Concurrent Therapy, Education, Functional Activity [place], Functional Strength, Group Therapy, Gait, Safety, Therapeutic Exercise, Transfers Treatment Duration: Aug 27, 2023 Frequency: At least 5 of 7 days/Wk (IRF) Estimated Hrs Per Day: Other (75 minutes per day) Patient and/or Family Agrees t: Yes Safety Risks/Education Patient Education: Gait Training, Steps, Reviewed Precautions, Correct Positioning, Safety Issues Teaching Recipient: Patient Teaching Methods: Demonstration, Discussion Response to Teaching: Verbalize Understanding, Return Demonstration Time Time In: 0900 (1315) Time Out: 1000 (1330) DATE: Aug 21, 2023 Total Billed Treatment Time: 75 Total Billed Treatment Co-treat w/OT for 30m ([id number]), Indiv. of 30m ([id number]) 1, FA x2 (30m) & GT x2 (30m) [id number]: 1, GT (15m) KIN RAJAN PLUMBING AND HEATING MECHANIC Aug 21, 2023 10:08
--- NOTE | 2023-08-21 10:29 | Occupational Ther Daily Note ---
OT Current Status-Daily Note Subjective Pt alert, working with PT. Family training completed with OT/PT co-treat([id number]), skills of 2 clinicians required for skilled instruction/education during family training to provide safe family assistance at home for pt's independence. PT focusing on ambulation, transfers and all mobility while OT focusing on ADLs, functional mobility and AE needed to maintain hip precautions. Mental Status/Objective Patient Orientation: Person, Place, Time, Situation ADL-Treatment Pt is independent in all ADLs. Pt uses FWW to gather clothing, ambulate to designated areas for ADLs and stabilization during ADLs for safety. Pt utilizes AE for lower body dressing to maintain precautions. Using grabbar, hand held shower, shower bench and LH sponge pt completes shower independently. Standing at sink, pt completes oral care independently. Therapy Code Descriptions/Definitions Functional [place] Measure: 0=Not Assessed/NA 4=Minimal Assistance 1=Total Assistance 5=Supervision or Setup 2=Maximal Assistance 6=Modified [place] 3=Moderate Assistance 7=Complete IndependenceSCALE: Activities may be completed with or without assistive devices. 8-Pnhrmkpkvn-lipsjhe completes the activity by him/herself with no assistance from a helper. 5-Set-up or Clean-up Assistance-helper sets up or cleans up; patient completes activity. [place] assists only prior to or following the activity. 4-Supervision or Touching Assistance-helper provides verbal cues and/or touching/steadying and/or contact guard assistance as patient completes activity. Assistance may be provided throughout the activity or intermittently. 3-Partial/Moderate Assistance-helper does LESS THAN HALF the effort. [place] lifts, holds or supports trunk or limbs, but provides less than half the effort. 2-Substantial/Maximal Assistance-helper does MORE THAN HALF the effort. [place] lifts or holds trunk or limbs and provides more than half the effort. 9-Eulgglruf-fjouxt does ALL the effort. Patient does none of the effort to complete the activity. Or, the assistance of 2 or more helpers is required for the patient to complete the activity. If activity was not attempted, code reason: 7-Patient Refused. 9-Not Applicable-not attempted and the patient did not perform the activity before the current illness, exacerbation or injury. 10-Not Attempted due to Environmental Limitations-(lack of equipment, weather restraints, etc.). 88-Not Attempted due to Medical Conditions or Safety Concerns. Oral Hygiene (QC): 6 Shower/Bathe Self (QC): 6 Upper Body Dressing (QC): 6 Lower Body Dressing (QC): 6 On/Off Footwear: 6 Toileting Hygiene (QC): 6 Toilet Transfer (QC): 6 Other Treatment Family was able to complete stairs safely with pt multiple times. Questions concerning bed mobility, AE/AD needed, stairs and FWW were answered, family had no more questions. Pt has FWW that family will bring up to size before pt discharges. After therapy, pt sitting in recliner with call light/phone in reach. All needs met in room. OT Senior Living Goals Nursing Information Systems Coordinator Goals Time Frame: Sep 11, 2023 Acute change in mental status: 0 Inattention: 0 Disorganized thinkin Altered level of consciousness: 0 Eating (QC): 6 Oral Hygiene (QC): 6 Toileting Hygiene (QC): 6 Shower/Bathe Self (QC): 6 Upper Body Dressing (QC): 6 Lower Body Dressing (QC): 6 On/Off Footwear (QC): 6 Additional Goals: 1-Demonstrate ADL Tasks, 2-Verbalize Understanding, 3- ImproveStrength/[place] 1=Demonstrate adherence to instructed precautions during ADL tasks. 2=Patient will verbalize/demonstrate understanding of assistive devices/modifications for ADL. 3=Patient will improve strength/tolerance for activity to enable patient to perform ADL's. OT Education/Plan Problem List/Assessment Assessment: Impaired Funct Balance, Impaired Self-Care Skills Discharge Recommendations Plan/Recommendations: Continue POC Treatment Plan/Plan of Care Patient would benefit from OT for education, treatment and training to promote independence in ADL's, mobility, safety and/or upper extremity function for ADL's. Plan of Care: ADL Retraining, Functional Mobility, Group Exercise/Act as Ind, UE Funct Exercise/Act Treatment Duration: Sep 11, 2023 Frequency: At least 5 of 7 days/Wk (IRF) Estimated Hrs Per Day: Other (75 mins per day) Rehab Potential: Good Time Start Time: 09:30 Stop Time: 10:45 DATE: Aug 21, 2023 Total Time Billed (hr/min): 75 Billed Treatment Time 1 visit-ADL 3 (45 min) FA 2 (30 min) co-treat with PT [id number], individual [id number] KELLY ROSADODmitri BACON Aug 21, 2023 10:29
--- NOTE | 2023-08-21 13:08 | Speech Therapy Daily Note ---
Speech Daily Progress Note Subjective Date Seen by Provider: Aug 21, 2023 Time Seen by Provider: 10:45 Pt agreeable to session. Objective Pt follow simple verbal directions and completes with 65% accuracy and requires mod verbal cues. Assessment Assessment Current Status: Good Progress Treatment Plan Continue Plan of Care Speech Associate Professor Of Radiology Goals Mcfp Goals Pt will demonstrate the ability to follow multi-step directions related to functional living environment with 85% accuracy. Pt will complete working memory tasks given auditory information with 85% accuracy. Pt will complete generative naming tasks with 85% accuracy. Speech-Plan Treatment Plan Speech Therapy Treatment Plan: Continue Plan of Care Treatment Duration: Aug 20, 2023 Frequency: At least 5 of 7 days/Wk (IRF) Estimated Hrs Per Day: .5 hour per day Rehab Potential: Good Time Speech Therapy Time In: 10:45 Speech Therapy Time Out: 11:15 DATE: Aug 21, 2023 Total Billed Time: 30 Billed Treatment Time 1 SLTS 30 min Dominique Manzano Aug 21, 2023 13:08
[2023-08-21] MEDS: ACETAMINOPHEN 325 MG TABLET PO PRN (15:38)
[2023-08-21 21:08] VITALS: BP 129/60
[2023-08-21] MEDS: amLODIPine 10 MG TABLET PO SCH (21:11)
--- NOTE | 2023-08-22 06:37 | PM&R Progress Note ---
Subjective HPI/CC On Admission Date Seen by Provider: Aug 22, 2023 Time Seen by Provider: 12:30 Subjective/Events-last exam 08/22/2023: Patient doing well Ambulating around really well No pain is reported No falls Discharge planned on Thursday? 08/21/2023: Patient doing really well Family wants her to go home on Thursday Walking around very well Pain is controlled 08/20/2023: Improved ambulation No falls Reviewed meds and labs No pain reported 08/19/2023: Patient doing well Pain is controlled Participating in therapy Bowels are moving Eating and drinking Review of Systems General: Fatigue, Malaise Objective Exam Vital Signs Vital Signs Date Time Temp Pulse Resp B/P (MAP) Pulse Ox O2 Delivery O2 Flow Rate FiO2 08/22/23 21:13 Room Air 08/22/23 20:05 37.1 74 18 108/59 (75) 93 08/21/23 08:52 0.00 08/20/23 20:05 21 Capillary Refill : General Appearance: No Apparent Distress, WD/WN HEENT: PERRL/EOMI, Normal ENT Inspection, Pharynx Normal Neck: Full Range of Motion, Normal Inspection, Non Tender, Supple, Carotid Bruit Respiratory: Chest Non Tender, Lungs Clear, Normal Breath Sounds, No Accessory Muscle Use, No Respiratory Distress Cardiovascular: Regular Rate, Rhythm, No Edema, No Gallop, No JVD, No Murmur, Normal Peripheral Pulses Gastrointestinal: Normal Bowel Sounds, No Organomegaly, No Pulsatile Mass, Non Tender, Soft Back: Normal Inspection, No CVA Tenderness, No Vertebral Tenderness Extremity: Normal Capillary Refill, Normal Inspection, Normal Range of Motion (Except right leg), Non Tender, No Calf Tenderness, No Pedal Edema Neurologic/Psychiatric: Alert, Oriented x3, Normal Mood/Affect, organic section technical lead II-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 FIM Transfers Therapy Code Descriptions/Definitions Functional [place] Measure: 0=Not Assessed/NA 4=Minimal Assistance 1=Total Assistance 5=Supervision or Setup 2=Maximal Assistance 6=Modified [place] 3=Moderate Assistance 7=Complete IndependenceSCALE: Activities may be completed with or without assistive devices. 2-Lprqqhoror-ysvzqrs completes the activity by him/herself with no assistance from a helper. 5-Set-up or Clean-up Assistance-helper sets up or cleans up; patient completes activity. [place] assists only prior to or following the activity. 4-Supervision or Touching Assistance-helper provides verbal cues and/or touchin g/steadying and/or contact guard assistance as patient completes activity. Assistance may be provided throughout the activity or intermittently. 3-Partial/Moderate Assistance-helper does LESS THAN HALF the effort. [place] lifts, holds or supports trunk or limbs, but provides less than half the effort. 2-Substantial/Maximal Assistance-helper does MORE THAN HALF the effort. [place] lifts or holds trunk or limbs and provides more than half the effort. 6-Ftjkzawmg-jfetiv does ALL the effort. Patient does none of the effort to complete the activity. Or, the assistance of 2 or more helpers is required for the patient to complete the activity. If activity was not attempted, code reason: 7-Patient Refused. 9-Not Applicable-not attempted and the patient did not perform the activity before the current illness, exacerbation or injury. 10-Not Attempted due to Environmental Limitations-(lack of equipment, weather restraints, etc.). 88-Not Attempted due to Medical Conditions or Safety Concerns. Roll Left to Right (QC): 5 (/c bed rail to (L)) Sit to Lying (QC): 6 Sit to Stand (QC): 6 Chair/Toh-xd-Xtuvm Xfer(QC): 6 Car Transfer (QC): 5 Gait Training Does the Patient Walk?: Yes Distance: 200', 350' Walk 10 feet (QC): 6 Walk 50 ft with 2 Turns(QC): 6 Walk 150 ft (QC): 6 Walking 10ft/uneven surface-QC: 3 (min (A) /c FWW) Gait Persons Needed: 1 Gait Assistive Device: FWW Wheelchair Training Does the Pt Use a Wheelchair?: No Wheel 50 ft with 2 turns (QC): 9 Wheel 150 ft (QC): 9 Stair Training Stair Training: Handrails/: 1 handrail #of Steps: 16 1 Step (curb) (QC): 5 4 Steps (QC): 5 12 Steps (QC): 5 Stairs: Pattern: Step to Balance Picking up an Object (QC): 4 (CGA using FWW and integrated marketing specialist) ADL-Treatment Eating (QC): 6 Oral Hygiene (QC): 6 Shower/Bathe Self (QC): 6 Upper Body Dressing (QC): 6 Lower Body Dressing (QC): 6 On/Off Footwear (QC): 6 Toileting Hygiene (QC): 6 Toilet Transfer (QC): 6 Assessment/Plan Assessment and Plan Assess & Plan/Chief Complaint Assessment: Right hip fracture HTN HLP Post op acute blood loss anemia Post op constipation 08/19/2023: Supportive care Monitor closely Continue aggressive therapy 08/20/2023: Continue aggressive therapy Pain controlled 08/21/2023: Pain control Ambulate Discharge home on Thursday? 08/22/2023: Discharge home on Thursday (1) Femoral neck fracture EDDI CURRIE DO Aug 22, 2023 06:37
[2023-08-22 08:00] VITALS: BP 121/59
[2023-08-22] MEDS: DOCUSATE SODIUM 100 MG CAPSULE PO SCH ×2 (08:22→20:29)
[2023-08-22] MEDS: LACTULOSE SYRUP 10GM/15ML 30ML UDC PO SCH ×2 (08:22→20:29)
[2023-08-22] MEDS: SENNOSIDES 8.6 MG TABLET PO SCH (08:22)
[2023-08-22 20:05] VITALS: BP 108/59
[2023-08-22] MEDS: ACETAMINOPHEN 325 MG TABLET PO PRN (20:46)
[2023-08-22] MEDS: amLODIPine 10 MG TABLET PO SCH (20:46)
--- NOTE | 2023-08-23 06:48 | PM&R Progress Note ---
Subjective HPI/CC On Admission Date Seen by Provider: Aug 23, 2023 Time Seen by Provider: 12:30 Subjective/Events-last exam 08/23/2023: Improved overall No pain reported Improved ambulation 08/22/2023: Patient doing well Ambulating around really well No pain is reported No falls Discharge planned on Thursday? 08/21/2023: Patient doing really well Family wants her to go home on Thursday Walking around very well Pain is controlled 08/20/2023: Improved ambulation No falls Reviewed meds and labs No pain reported 08/19/2023: Patient doing well Pain is controlled Participating in therapy Bowels are moving Eating and drinking Review of Systems General: Fatigue, Malaise Objective Exam Vital Signs Vital Signs Date Time Temp Pulse Resp B/P (MAP) Pulse Ox O2 Delivery O2 Flow Rate FiO2 08/23/23 09:08 94 Room Air 08/23/23 08:00 37.0 76 16 122/58 (79) 08/21/23 08:52 0.00 08/20/23 20:05 21 Capillary Refill : General Appearance: No Apparent Distress, WD/WN HEENT: PERRL/EOMI, Normal ENT Inspection, Pharynx Normal Neck: Full Range of Motion, Normal Inspection, Non Tender, Supple, Carotid Bruit Respiratory: Chest Non Tender, Lungs Clear, Normal Breath Sounds, No Accessory Muscle Use, No Respiratory Distress Cardiovascular: Regular Rate, Rhythm, No Edema, No Gallop, No JVD, No Murmur, Normal Peripheral Pulses Gastrointestinal: Normal Bowel Sounds, No Organomegaly, No Pulsatile Mass, Non Tender, Soft Back: Normal Inspection, No CVA Tenderness, No Vertebral Tenderness Extremity: Normal Capillary Refill, Normal Inspection, Normal Range of Motion (Except right leg), Non Tender, No Calf Tenderness, No Pedal Edema Neurologic/Psychiatric: Alert, Oriented x3, Normal Mood/Affect, track inspector II-XII Norm as Tested, Abnormal Gait, Motor Weakness ( right leg weakness) Skin: Normal Color, Warm/Dry Lymphatic: No Adenopathy Results/Procedures Lab Laboratory Tests 08/23/23 06:45 Patient resulted labs reviewed. FIM Transfers Therapy Code Descriptions/Definitions Functional [place] Measure: 0=Not Assessed/NA 4=Minimal Assistance 1=Total Assistance 5=Supervision or Setup 2=Maximal Assistance 6=Modified [place] 3=Moderate Assistance 7=Complete IndependenceSCALE: Activities may be completed with or without assistive devices. 0-Ajehjnwbad-axginrz completes the activity by him/herself with no assistance from a helper. 5-Set-up or Clean-up Assistance-helper sets up or cleans up; patient completes activity. [place] assists only prior to or following the activity. 4-Supervision or Touching Assistance-helper provides verbal cues and/or touching/steadying and/or contact guard assistance as patient completes activity. Assistance may be provided throughout the activity or intermittently. 3-Partial/Moderate Assistance-helper does LESS THAN HALF the effort. [place] lifts, holds or supports trunk or limbs, but provides less than half the effort. 2-Substantial/Maximal Assistance-helper does MORE THAN HALF the effort. [place] lifts or holds trunk or limbs and provides more than half the effort. 2-Thnwynfjo-yvfhnz does ALL the effort. Patient does none of the effort to complete the activity. Or, the assistance of 2 or more helpers is required for the patient to complete the activity. If activity was not attempted, code reason: 7-Patient Refused. 9-Not Applicable-not attempted and the patient did not perform the activity before the current illness, exacerbation or injury. 10-Not Attempted due to Environmental Limitations-(lack of equipment, weather restraints, etc.). 88-Not Attempted due to Medical Conditions or Safety Concerns. Roll Left to Right (QC): 5 (/c bed rail to (L)) Sit to Lying (QC): 6 Sit to Stand (QC): 6 Chair/Zlt-fm-Wcffb Xfer(QC): 6 Car Transfer (QC): 5 Gait Training Does the Patient Walk?: Yes Distance: 200', 350' Walk 10 feet (QC): 6 Walk 50 ft with 2 Turns(QC): 6 Walk 150 ft (QC): 6 Walking 10ft/uneven surface-QC: 3 (min (A) /c FWW) Gait Persons Needed: 1 Gait Assistive Device: FWW Wheelchair Training Does the Pt Use a Wheelchair?: No Wheel 50 ft with 2 turns (QC): 9 Wheel 150 ft (QC): 9 Stair Training Stair Training: Handrails/: 1 handrail #of Steps: 16 1 Step (curb) (QC): 5 4 Steps (QC): 5 12 Steps (QC): 5 Stairs: Pattern: Step to Balance Picking up an Object (QC): 4 (CGA using FWW and electrician outside) ADL-Treatment Eating (QC): 6 Oral Hygiene (QC): 6 Shower/Bathe Self (QC): 6 Upper Body Dressing (QC): 6 Lower Body Dressing (QC): 6 On/Off Footwear (QC): 6 Toileting Hygiene (QC): 6 Toilet Transfer (QC): 6 Assessment/Plan Assessment and Plan Assess & Plan/Chief Complaint Assessment: Right hip fracture HTN HLP Post op acute blood loss anemia Post op constipation 08/19/2023: Supportive care Monitor closely Continue aggressive therapy 08/20/2023: Continue aggressive therapy Pain controlled 08/21/2023: Pain control Ambulate Discharge home on Thursday? 08/22/2023: Discharge home on Thursday08/23/2023: DC home Monitor closely (1) Femoral neck fracture EDDI CURRIE DO Aug 23, 2023 06:48
[2023-08-23 06:53] LABS: BASOPHILS # (AUTO) 0.1 10^3/uL (0.0-0.1); BASOPHILS % (AUTO) 1 % (0-10); EOSINOPHILS # (AUTO) 0.7 10^3/uL (0.0-0.3); EOSINOPHILS % (AUTO) 9 % (0-10); HEMATOCRIT 34 % (35-52); HEMOGLOBIN 11.2 g/dL (11.5-16.0); LYMPHOCYTES # (AUTO) 1.8 10^3/uL (1.0-4.0); LYMPHOCYTES % (AUTO) 23 % (12-44); MEAN CORPUSCULAR HEMOGLOBIN 30 pg (25-34); MEAN CORPUSCULAR HGB CONC 33 g/dL (32-36); MEAN CORPUSCULAR VOLUME 91 fL (80-99); MEAN PLATELET VOLUME 11.2 fL (9.0-12.2); MONOCYTES # (AUTO) 0.6 10^3/uL (0.0-1.0); MONOCYTES % (AUTO) 7 % (0-12); NEUTROPHILS # (AUTO) 4.5 10^3/uL (1.8-7.8); NEUTROPHILS % (AUTO) 60 % (42-75); PLATELET COUNT 258 10^3/uL (130-400); WHITE BLOOD COUNT 7.6 10^3/uL (4.3-11.0)
[2023-08-23 07:02] LABS: ALBUMIN 3.2 GM/DL (3.2-4.5); POTASSIUM 4.3 MMOL/L (3.6-5.0)
[2023-08-23 07:03] LABS: CALCIUM 8.6 MG/DL (8.5-10.1)
[2023-08-23 07:04] LABS: TOTAL PROTEIN 6.2 GM/DL (6.4-8.2)
[2023-08-23 07:06] LABS: BILIRUBIN,TOTAL 0.6 MG/DL (0.1-1.0)
[2023-08-23 07:08] LABS: CREATININE SERUM 0.74 MG/DL (0.60-1.30)
[2023-08-23] MEDS: LACTULOSE SYRUP 10GM/15ML 30ML UDC PO SCH ×2 (07:35→19:26)
[2023-08-23 08:00] VITALS: BP 122/58
[2023-08-23] MEDS: SENNOSIDES 8.6 MG TABLET PO SCH (08:02)
[2023-08-23] MEDS: DOCUSATE SODIUM 100 MG CAPSULE PO SCH ×2 (08:02→20:30)
[2023-08-23 20:29] VITALS: BP 124/58
[2023-08-23] MEDS: amLODIPine 10 MG TABLET PO SCH (20:30)
[2023-08-23] MEDS: ACETAMINOPHEN 325 MG TABLET PO PRN (20:33)
--- NOTE | 2023-08-24 04:54 | D/C HH Face to Face Order ---
D/C Face to Face Orders Reconcile Patient Problems Problems Reviewed?: Yes Instructions for Patient Via [facility], Patient Instructions/FollowUp: pcp as ordered Physician to follow Patient: pcp Discharge Diet for Home: No Restrictions Patient Problems: hip fx Patient Data-Allergies,Ht & Wt Patient Allergies: Coded Allergies: lisinopril (Verified Allergy, Severe, angioedema, 08/13/23) pseudoephedrine HCl (Verified Allergy, Unknown, 08/13/23) famotidine (Verified Adverse Reaction, Mild, 08/13/23) pt started to feel short of breath after dose of pepcid Height (Feet): 5 Height (Inches): 1 Weight (Pounds): 150 Home Health Need/Face to Face Date of Face to Face: Aug 24, 2023 Clinical Findings: Generalized weakness and fatigue, Instability, Muscle weakness, Pain with ambulation I have seen Pt cowp-rc-[id number]: Yes Discharged To: Home Diagnosis/Conditions: hip fx Patient is Homebound due to: Pain w/ambulation Homebound Status Due to the above stated illness, injury or surgical procedure (medical condition or diagnosis) and associated clinical findings, the patient is homebound because of his/her inability to leave home except with aid of a supportive device and/or person AND leaving the home requires a considerable and taxing effort or is medically contraindicated. Pt req the following assistanc: [facility] Nursing Orders Home Health Services Order: Nursing Services, [facility]-Evaluate & Treat, Physical Therapy-Evaluate & Treat Certify Stmt I certify that this patient is under my care and that I, a nurse practitioner or a physician; a social worker assistant working with me, had a face to face encounter that - meets the physician face to face encounter requirements with this patient as dated. EDDI CURRIE DO Aug 24, 2023 04:54
--- NOTE | 2023-08-24 04:55 | Discharge Summary ---
Diagnosis/Chief Complaint Date of Admission Aug 18, 2023 at 10:15 Date of Discharge Discharge Date: Aug 24, 2023 Discharge Diagnosis Assessment: Right hip fracture HTN HLP Post op acute blood loss anemia Post op constipation 08/19/2023: Supportive care Monitor closely Continue aggressive therapy 08/20/2023: Continue aggressive therapy Pain controlled 08/21/2023: Pain control Ambulate Discharge home on Thursday? 08/22/2023: Discharge home on Thursday08/23/2023: DC home Monitor closely (1) Femoral neck fracture Discharge Summary Discharge Physical Examination Allergies: Coded Allergies: lisinopril (Verified Allergy, Severe, angioedema, 08/13/23) pseudoephedrine HCl (Verified Allergy, Unknown, 08/13/23) famotidine (Verified Adverse Reaction, Mild, 08/13/23) pt started to feel short of breath after dose of pepcid Vitals & I&Os Vital Signs Date Time Temp Pulse Resp B/P (MAP) Pulse Ox O2 Delivery O2 Flow Rate FiO2 08/24/23 11:43 36.6 93 18 132/61 94 Room Air 0.00 08/20/23 20:05 21 General Appearance: Alert, Oriented X3 HEENT: Atraumatic Respiratory: Clear to Auscultation Psych/Mental Status: Mental Status NL Hospital Course Was the Problem List Reviewed?: Yes Patient had a short hospital course and rehab after fall sustaining hip fracture status post repair. Patient had no decline in status vitals and labs remained stable bowel function returned back to normal patient was deemed stable for discharge after aggressive rehabilitation and successful regaining of independence Labs (last 24 hrs) Laboratory Tests 08/19/23 05:45: White Blood Count 6.6, Red Blood Count 3.38L, Hemoglobin 10.0L, Hematocrit 31L, Mean Corpuscular Volume 91, Mean Corpuscular Hemoglobin 30, Mean Corpuscular Hemoglobin Concent 33, Red Cell Distribution Width 12.9, Platelet Count 171, Mean Platelet Volume 11.9, Immature Granulocyte % (Auto) 0, Neutrophils (%) (A uto) 54, Lymphocytes (%) (Auto) 28, Monocytes (%) (Auto) 8, Eosinophils (%) (Auto) 9, Basophils (%) (Auto) 1, Neutrophils # (Auto) 3.6, Lymphocytes # (Auto) 1.9, Monocytes # (Auto) 0.5, Eosinophils # (Auto) 0.6H, Basophils # (Auto) 0.0, Immature Granulocyte # (Auto) 0.0, Sodium Level 138, Potassium Level 3.9, Chloride Level 105, Carbon Dioxide Level 28, Anion Gap 5, Blood Urea Nitrogen 13, Creatinine 0.69, Estimat Glomerular Filtration Rate 88, BUN/Creatinine Ratio 19, Glucose Level 98, Calcium Level 8.2L, Corrected Calcium 9.1, Total Bilirubin 0.6, Aspartate Amino Transf (AST/SGOT) 32, Alanine Aminotransferase (ALT/SGPT) 21, Alkaline Phosphatase 60, Total Protein 5.8L, Albumin 2.9L 08/23/23 06:45: White Blood Count 7.6, Red Blood Count 3.70L, Hemoglobin 11.2L, Hematocrit 34L, Mean Corpuscular Volume 91, Mean Corpuscular Hemoglobin 30, Mean Corpuscular Hemoglobin Concent 33, Red Cell Distribution Width 13.2, Platelet Count 258, Mean Platelet Volume 11.2, Immature Granulocyte % (Auto) 0, Neutrophils (%) (Auto) 60, Lymphocytes (%) (Auto) 23, Monocytes (%) (Auto) 7, Eosinophils (%) (Auto) 9, Basophils (%) (Auto) 1, Neutrophils # (Auto) 4.5, Lymphocytes # (Auto) 1.8, Monocytes # (Auto) 0.6, Eosinophils # (Auto) 0.7H, Basophils # (Auto) 0.1, Immature Granulocyte # (Auto) 0.0, Sodium Level 139, Potassium Level 4.3, Chloride Level 105, Carbon Dioxide Level 25, Anion Gap 9, Blood Urea Nitrogen 12, Creatinine 0.74, Estimat Glomerular Filtration Rate 82, BUN/Creatinine Ratio 16, Glucose Level 97, Calcium Level 8.6, Corrected Calcium 9.2, Total Bilirubin 0.6, Aspartate Amino Transf (AST/SGOT) 19, Alanine Aminotransferase (ALT/SGPT) 18, Alkaline Phosphatase 70, Total Protein 6.2L, Albumin 3.2 Pending Labs Laboratory Tests 08/19/23 05:45: White Blood Count 6.6, Red Blood Count 3.38, Hemoglobin 10.0, Hematocrit 31, Mean Corpuscular Volume 91, Mean Corpuscular Hemoglobin 30, Mean Corpuscular Hemoglobin Concent 33, Red Cell Distribution Width 12.9, Platelet Count 171, Mean Platelet Volume 11.9, Immature Granulocyte % (Auto) 0, Neutrophils (%) (Auto) 54, Lymphocytes (%) (Auto) 28, Monocytes (%) (Auto) 8, Eosinophils (%) (Auto) 9, Basophils (%) (Auto) 1, Neutrophils # (Auto) 3.6, Lymphocytes # (Auto) 1.9, Monocytes # (Auto) 0.5, Eosinophils # (Auto) 0.6, Basophils # (Auto) 0.0, Immature Granulocyte # (Auto) 0.0, Sodium Level 138, Potassium Level 3.9, Chloride Level 105, Carbon Dioxide Level 28, Anion Gap 5, Blood Urea Nitrogen 1 3, Creatinine 0.69, Estimat Glomerular Filtration Rate 88, BUN/Creatinine Ratio 19, Glucose Level 98, Calcium Level 8.2, Corrected Calcium 9.1, Total Bilirubin 0.6, Aspartate Amino Transf (AST/SGOT) 32, Alanine Aminotransferase (ALT/SGPT) 21, Alkaline Phosphatase 60, Total Protein 5.8, Albumin 2.9 08/23/23 06:45: White Blood Count 7.6, Red Blood Count 3.70, Hemoglobin 11.2, Hematocrit 34, Mean Corpuscular Volume 91, Mean Corpuscular Hemoglobin 30, Mean Corpuscular Hemoglobin Concent 33, Red Cell Distribution Width 13.2, Platelet Count 258, Mean Platelet Volume 11.2, Immature Granulocyte % (Auto) 0, Neutrophils (%) (Auto) 60, Lymphocytes (%) (Auto) 23, Monocytes (%) (Auto) 7, Eosinophils (%) (Auto) 9, Basophils (%) (Auto) 1, Neutrophils # (Auto) 4.5, Lymphocytes # (Auto) 1.8, Monocytes # (Auto) 0.6, Eosinophils # (Auto) 0.7, Basophils # (Auto) 0.1, Immature Granulocyte # (Auto) 0.0, Sodium Level 139, Potassium Level 4.3, Chloride Level 105, Carbon Dioxide Level 25, Anion Gap 9, Blood Urea Nitrogen 12, Creatinine 0.74, Estimat Glomerular Filtration Rate 82, BUN/Creatinine Ratio 16, Glucose Level 97, Calcium Level 8.6, Corrected Calcium 9.2, Total Bilirubin 0.6, Aspartate Amino Transf (AST/SGOT) 19, Alanine Aminotransferase (ALT/SGPT) 18, Alkaline Phosphatase 70, Total Protein 6.2, Albumin 3.2 Discharge Home Medications: Active Scripts Active Reported Excedrin Extra Strength Caplet (Aspirin/Acetaminophen/Caffeine) 250 Mg-250 Mg-65 Mg Tablet 2 Each PO Q8H PRN Metoprolol Succinate 50 Mg Tab.er.24h 50 Mg PO DAILY Amlodipine Besylate 10 Mg Tablet 10 Mg PO HS Hydrochlorothiazide 25 Mg Tablet 25 Mg PO MO,WE,FR Pravastatin Sodium 40 Mg Tablet 40 Mg PO HS Instructions to patient/family Please see electronic discharge instructions given to patient. Diagnosis/Problems Diagnosis/Problems (1) Femoral neck fracture EDDI CURRIE DO Aug 24, 2023 04:55
[2023-08-24] MEDS: LACTULOSE SYRUP 10GM/15ML 30ML UDC PO SCH (07:38)
--- NOTE | 2023-08-24 07:43 | Occupational Ther Daily Note ---
OT Current Status-Daily Note Subjective Pt agreeable to OT tx, states she feels ready to discharge home. Mental Status/Objective Patient Orientation: Normal For Age ADL-Treatment Therapy Code Descriptions/Definitions Functional Colony Measure: 0=Not Assessed/NA 4=Minimal Assistance 1=Total Assistance 5=Supervision or Setup 2=Maximal Assistance 6=Modified Colony 3=Moderate Assistance 7=Complete IndependenceSCALE: Activities may be completed with or without assistive devices. 4-Ygkubqhzkp-nieyisc completes the activity by him/herself with no assistance from a helper. 5-Set-up or Clean-up Assistance-helper sets up or cleans up; patient completes activity. [place] assists only prior to or following the activity. 4-Supervision or Touching Assistance-helper provides verbal cues and/or touching/steadying and/or contact guard assistance as patient completes activity. Assistance may be provided throughout the activity or intermittently. 3-Partial/Moderate Assistance-helper does LESS THAN HALF the effort. [place] lifts, holds or supports trunk or limbs, but provides less than half the effort. 2-Substantial/Maximal Assistance-helper does MORE THAN HALF the effort. [place] lifts or holds trunk or limbs and provides more than half the effort. 8-Jcylzttcj-woypyq does ALL the effort. Patient does none of the effort to complete the activity. Or, the assistance of 2 or more helpers is required for the patient to complete the activity. If activity was not attempted, code reason: 7-Patient Refused. 9-Not Applicable-not attempted and the patient did not perform the activity befo re the current illness, exacerbation or injury. 10-Not Attempted due to Environmental Limitations-(lack of equipment, weather re straints, etc.). 88-Not Attempted due to Medical Conditions or Safety Concerns. Eating (QC): 6 Oral Hygiene (QC): 6 Shower/Bathe Self (QC): 6 Upper Body Dressing (QC): 6 Lower Body Dressing (QC): 6 On/Off Footwear: 6 Toileting Hygiene (QC): 6 Toilet Transfer (QC): 6 Other Treatment Pt seated EOB, used FWW to gather ADL supplies and transfer into bathroom onto toilet, IND. Pt completed toileting, showering, dressing and grooming tasks, IND . Post tx, pt in recliner, call light in reach and all needs met. Education OT Patient Education: Correct positioning, Energy conservation, Modified ADL techniques, Progress toward Goal/Update tx plan, Purpose of tx/functional activities, Rehab process Teaching Recipient: Patient Teaching Methods: Discussion Response to Teaching: Verbalize Understanding BIMS CAM BIMS Expression of Ideas and Wants: Without Difficulty Understanding Verbal Content: Understands Brief Interview/Mental Status: Yes IRF ELKIN BIMS: IRF ELKIN BIMS Response (Comments) Value Repitition of Three Words Three 3 Recalls Socks Yes, No Cue Required 2 Recalls Blue Yes, No Cue Required 2 Recalls Bed Yes, No Cue Required 2 Year Correct 3 Month Accurate Within 5 Days 2 Day Correct 1 Total 15 Patient Normally Able to Recal: Current Session, Location of own room, Staff Names and faces, That he/she in a hsp Should Staff Asses. Mental St.: No Memory/Recall Ability: Current Season, Location of Own Room, Staff Names and Faces, That He/She in Hospitall CAM Mental Status Change/Baseline: 0 Inattention: 0 Disorganized thinkin Altered level of consciousness: 0 OT Transit Planning Manager Goals Detention Goals Time Frame: Sep 11, 2023 Acute change in mental status: 0 Inattention: 0 Disorganized thinkin Altered level of consciousness: 0 Eating (QC): 6 (met) Oral Hygiene (QC): 6 (met) Toileting Hygiene (QC): 6 (met) Shower/Bathe Self (QC): 6 (met) Upper Body Dressing (QC): 6 (met) Lower Body Dressing (QC): 6 (met) On/Off Footwear (QC): 6 (met) Additional Goals: 1-Demonstrate ADL Tasks, 2-Verbalize Understanding, 3- ImproveStrength/Kendell 1=Demonstrate adherence to instructed precautions during ADL tasks. 2=Patient will verbalize/demonstrate understanding of assistive devices/modifications for ADL. 3=Patient will improve strength/tolerance for activity to enable patient to perform ADL's. OT Education/Plan Problem List/Assessment Assessment: Decreased Activ Tolerance, Decreased UE Strength, Impaired I ADL's Discharge Recommendations Plan/Recommendations: Continue POC Treatment Plan/Plan of Care Patient would benefit from OT for education, treatment and training to promote independence in ADL's, mobility, safety and/or upper extremity function for ADL's. Plan of Care: ADL Retraining, Functional Mobility, Group Exercise/Act as Ind, UE Funct Exercise/Act Treatment Duration: Sep 11, 2023 Frequency: At least 5 of 7 days/Wk (IRF) Estimated Hrs Per Day: Other (75 mins per day) Rehab Potential: Good Time Start Time: 07:15 Stop Time: 08:15 DATE: Aug 24, 2023 Total Time Billed (hr/min): 60 Billed Treatment Time 1, ADL 4 ELMER JASMINE OT Aug 24, 2023 07:43
[2023-08-24 08:00] VITALS: BP 132/61
[2023-08-24] MEDS: DOCUSATE SODIUM 100 MG CAPSULE PO SCH (08:21)
[2023-08-24] MEDS: SENNOSIDES 8.6 MG TABLET PO SCH (08:21)
[2023-08-24 11:43] VITALS: BP 132/61
--- NOTE | 2023-08-24 11:51 | Physical Therapy Daily Note ---
PT Daily Note-Current Subjective Pt presents sitting in recliner with B feet elevated. Pt denies pain and is agreeable to PT tx. Pain Section J - Health Conditions 1. Rarely or not at all 2. Occasionally 3. Frequently 4. Almost constantly 8. Unable to answer Pain Effect on Sleep: 1 Pain Interference with Therapy: 1 Pain Interference w/Day-to-Day: 1 Mental Status Patient Orientation: Person, Place, Time, Situation Transfers SCALE: Activities may be completed with or without assistive devices. 6-Mabvapywmj-inzduwv completes the activity by him/herself with no assistance from a helper. 5-Set-up or Clean-up Assistance-helper sets up or cleans up; patient completes activity. [place] assists only prior to or following the activity. 4-Supervision or Touching Assistance-helper provides verbal cues and/or touching/steadying and/or contact guard assistance as patient completes activity. Assistance may be provided throughout the activity or intermittently. 3-Partial/Moderate Assistance-helper does LESS THAN HALF the effort. [place] lifts, holds or supports trunk or limbs, but provides less than half the effort. 2-Substantial/Maximal Assistance-helper does MORE THAN HALF the effort. [place] lifts or holds trunk or limbs and provides more than half the effort. 8-Lfgvnfojg-pisxoy does ALL the effort. Patient does none of the effort to complete the activity. Or, the assistance of 2 or more helpers is required for the patient to complete the activity. If activity was not attempted, code reason: 7-Patient Refused. 9-Not Applicable-not attempted and the patient did not perform the activity before the current illness, exacerbation or injury. 10-Not Attempted due to Environmental Limitations-(lack of equipment, weather restraints, etc.). 88-Not Attempted due to Medical Conditions or Safety Concerns. Roll Left & Right (QC): 6 Sit to Lying (QC): 6 Lying to Sitting/Side of Bed(Q: 6 Sit to Stand (QC): 6 Chair/Tiq-ei-Xxhcv Xfer(QC): 6 Toilet Transfer (QC): 6 Car Transfer (QC): 6 Weight Bearing Right Lower Extremity: Right Weight Bearing/Tolerated Left Lower Extremity: Left Full Weight Bearing Gait Training Does the Patient Walk?: Yes Walk 10 feet (QC): 6 Walk 50 ft with 2 Turns(QC): 6 Walk 150 ft (QC): 6 Walking 10ft/uneven surface-QC: 6 Gait Assistive Device: FWW Pt amb from room, around ARU, to therapy gym and back to room ~300' /c FWW, Independently. Wheelchair Training Does the Pt Use a Wheelchair?: No Stair Training Stair Training: Handrails/: 2 handrails 1 Step (curb) (QC): 6 4 Steps (QC): 4 12 Steps (QC): 4 Stairs: Pattern: Reciprocal Balance Picking up an Object (QC): 6 Special Test Comments With regional otr company driver and (L) UE support on FWW. Treatments Pt conducted Quality Code checks for PT tx. Pt amb with FWW, conducted bed mobility, transfers, stairs and picking up an object. Post tx with pt in recliner, call light within reach and all needs met. Assessment Current Status: Excellent Progress Pt improving to most Quality Codes as Independent. PT Longterm Goals Human Resources Benefits Administrator Goals PT Longterm Goals Time Frame: Aug 27, 2023 Roll Left & Right (QC): 6 Sit to Lying (QC): 6 Lying-Sitting on Side/Bed(QC): 6 Sit to Stand (QC): 6 Chair/Btm-gl-Nawhj Xfer(QC): 6 (/c FWW) Toilet Transfer (QC): 6 (/c FWW) Car Transfer (QC): 6 (/c FWW) Does the Patient Walk: Yes Walk 10 feet (QC): 6 (/c FWW) Walk 50ft with 2 Turns (QC): 6 (/c FWW) Walk 150 ft (QC): 6 (/c FWW) Walking 10ft on Uneven Surface: 6 (/c FWW) 1 Step (curb) (QC): 4 (SBA /c prn sequence cues) 4 Steps (QC): 4 (SBA /c prn sequence cues) 12 Steps (QC): 4 (SBA /c prn sequence cues) Picking up an Object (QC): 6 (/c or without device) Does the Pt use WC or Scooter?: No Wheel 50 feet with 2 turns (QC: 9 Wheel 150 feet: 9 PT Plan Treatment/Plan Treatment Plan: Continue Plan of Care Treatment Plan: Bed Mobility, Concurrent Therapy, Education, Functional Activity Kendell, Functional Strength, Group Therapy, Gait, Safety, Therapeutic Exercise, Transfers Treatment Duration: Aug 27, 2023 Frequency: At least 5 of 7 days/Wk (IRF) Estimated Hrs Per Day: Other (75 minutes per day) Patient and/or Family Agrees t: Yes Discharge Recommendations Plan Pt to D/C 08/24/2023 per pt POC. Time Time In: 1100 Time Out: 1130 DATE: Aug 24, 2023 Total Billed Treatment Time: 30 Total Billed Treatment 1, GT (15m), FA (15m) LEILANI ESPINOSA SPECIAL PROCEDURE TECH Aug 24, 2023 11:51
--- NOTE | 2023-08-24 13:14 | Therapy Team Discharge Summary ---
Therapy Discharge Summary Discharge Recommendations Date of Discharge Aug 24, 2023 at 12:51 Physical Therapy Roll Left to Right (QC): 6 Sit to Lying (QC): 6 Lying to Sitting/Side of Bed(Q: 6 Sit to Stand (QC): 6 Chair/Lbv-xt-Bhakj Xfer(QC): 6 Toilet Transfer (QC): 6 Car Transfer (QC): 6 Does the Patient Walk: Yes Mode of Locomotion: Walk Anticipated Mode of Locomotion: Walk Walk 10 feet (QC): 6 Walk 50 ft with 2 Turns(QC): 6 Walk 150 ft (QC): 6 Walking 10ft on uneven surface: 6 Distance: 150' Gait Assistive Device: FWW Does the Pt Use a Wheelchair: No Wheel 50 ft with 2 turns (QC): 9 Wheel 150 ft (QC): 9 #of Steps: 16 1 Step (curb) (QC): 6 4 Steps (QC): 4 12 Steps (QC): 4 Walking Assistive Device: Walker Balance Sitting Static: Good Balance Sitting Dynamic: Fair Balance-Standing Static: Good Picking up an Object (QC): 6 Occupational Therapy Pt admitted to [facility] s/p R [facility]. At [facility], pt was independent with ADLS and functional mobility. Upon initial evaluation, pt was independent with eating, required set up UBD, SBA oral care, showering, LBD and toileting, and mod A footwear. OT Tx focused on increasing safety and independence with ADLs and functional mobility and increasing BUE strength and activity tolerance. Pt made good progress towards goals, attaining all LTGS. Pt discharged home with family support, d/c from OT. Decreased Activ Tolerance, Decreased UE Strength, Impaired I ADL's Eating (QC): 6 Oral Hygiene (QC): 6 Shower/Bathe Self (QC): 6 Upper Body Dressing (QC): 6 Lower Body Dressing (QC): 6 On/Off Footwear (QC): 6 Toileting Hygiene (QC): 6 PT Meat Specialist Goals Meat Specialist Goals PT Fdc Goals Time Frame: Aug 27, 2023 Roll Left to Right (QC): 6 Sit to Lying (QC): 6 Lying-Sitting on Side/Bed(QC): 6 Sit to Stand (QC): 6 Chair/Sij-ug-Fvtdt Xfer(QC): 6 (/c FWW) Toilet/Commode Transfer (QC): 6 (/c FWW) Car Transfer (QC): 6 (/c FWW) Does the Patient Walk: Yes Walk 10 feet (QC): 6 (/c FWW) Walk 10ft-Uneven Surface(QC): 6 (/c FWW) Walk 50ft with 2 Turns (QC): 6 (/c FWW) Walk 150 ft (QC): 6 (/c FWW) Does the Pt use WC or Scooter?: No Wheel 50 feet with 2 turns (QC: 9 Wheel 150 feet: 9 1 Step (curb) (QC): 4 (SBA /c prn sequence cues) 4 Steps (QC): 4 (SBA /c prn sequence cues) 12 Steps (QC): 4 (SBA /c prn sequence cues) Picking up an Object (QC): 6 (/c or without device) OT Meat Specialist Goals Meat Specialist Goals Time Frame: Sep 11, 2023 Acute change in mental status: 0 Inattention: 0 Disorganized thinkin Altered level of consciousness: 0 Eating (QC): 6 (met) Oral Hygiene (QC): 6 (met) Toileting Hygiene (QC): 6 (met) Shower/Bathe Self (QC): 6 (met) Upper Body Dressing (QC): 6 (met) Lower Body Dressing (QC): 6 (met) On/Off Footwear (QC): 6 (met) Additional Goals: 1-Demonstrate ADL Tasks, 2-Verbalize Understanding, 3- ImproveStrength/Kendell 1=Demonstrate adherence to instructed precautions during ADL tasks. 2=Patient will verbalize/demonstrate understanding of assistive devices/modifications for ADL. 3=Patient will improve strength/tolerance for activity to enable patient to perform ADL's. Speech Meat Specialist Goals Fdc Goals Pt will demonstrate the ability to follow multi-step directions related to functional living environment with 85% accuracy. Pt will complete working memory tasks given auditory information with 85% accuracy. Pt will complete generative naming tasks with 85% accuracy. ELMER JASMINE OT Aug 24, 2023 13:14
--- NOTE | 2023-08-24 14:00 | Therapy Team Discharge Summary ---
Therapy Discharge Summary Discharge Recommendations Date of Discharge Aug 24, 2023 at 12:51 Physical Therapy Roll Left to Right (QC): 6 Sit to Lying (QC): 6 Lying to Sitting/Side of Bed(Q: 6 Sit to Stand (QC): 6 Chair/Udm-aa-Efill Xfer(QC): 6 Toilet Transfer (QC): 6 Car Transfer (QC): 6 Does the Patient Walk: Yes Mode of Locomotion: Walk Anticipated Mode of Locomotion: Walk Walk 10 feet (QC): 6 Walk 50 ft with 2 Turns(QC): 6 Walk 150 ft (QC): 6 Walking 10ft on uneven surface: 6 Distance: 150' Gait Assistive Device: FWW Does the Pt Use a Wheelchair: No Wheel 50 ft with 2 turns (QC): 9 Wheel 150 ft (QC): 9 #of Steps: 16 1 Step (curb) (QC): 6 4 Steps (QC): 4 12 Steps (QC): 4 Walking Assistive Device: Walker Balance Sitting Static: Good Balance Sitting Dynamic: Fair Balance-Standing Static: Good Picking up an Object (QC): 6 Occupational Therapy Decreased Activ Tolerance, Decreased UE Strength, Impaired I ADL's Eating (QC): 6 Oral Hygiene (QC): 6 Shower/Bathe Self (QC): 6 Upper Body Dressing (QC): 6 Lower Body Dressing (QC): 6 On/Off Footwear (QC): 6 Toileting Hygiene (QC): 6 Speech-Language Pathology Pt admitted to [facility] s/p R [facility]. Evaluation identified several deficits, including following multi-step directions, working memory tasks given auditory information, and generative naming tasks. ST focused on these cognitive areas in order to increase independence during daily tasks. Pt demonstrates progress and has good insight into cognitive deficits. Pt discharged home with family support. PT Transistor Tester Goals Jail Goals PT Transistor Tester Goals Time Frame: Aug 27, 2023 Roll Left to Right (QC): 6 Sit to Lying (QC): 6 Lying-Sitting on Side/Bed(QC): 6 Sit to Stand (QC): 6 Chair/Nfb-aw-Iajmr Xfer(QC): 6 (/c FWW) Toilet/Commode Transfer (QC): 6 (/c FWW) Car Transfer (QC): 6 (/c FWW) Does the Patient Walk: Yes Walk 10 feet (QC): 6 (/c FWW) Walk 10ft-Uneven Surface(QC): 6 (/c FWW) Walk 50ft with 2 Turns (QC): 6 (/c FWW) Walk 150 ft (QC): 6 (/c FWW) Does the Pt use WC or Scooter?: No Wheel 50 feet with 2 turns (QC: 9 Wheel 150 feet: 9 1 Step (curb) (QC): 4 (SBA /c prn sequence cues) 4 Steps (QC): 4 (SBA /c prn sequence cues) 12 Steps (QC): 4 (SBA /c prn sequence cues) Picking up an Object (QC): 6 (/c or without device) OT Jail Goals Jail Goals Time Frame: Sep 11, 2023 Acute change in mental status: 0 Inattention: 0 Disorganized thinkin Altered level of consciousness: 0 Eating (QC): 6 (met) Oral Hygiene (QC): 6 (met) Toileting Hygiene (QC): 6 (met) Shower/Bathe Self (QC): 6 (met) Upper Body Dressing (QC): 6 (met) Lower Body Dressing (QC): 6 (met) On/Off Footwear (QC): 6 (met) Additional Goals: 1-Demonstrate ADL Tasks, 2-Verbalize Understanding, 3-ImproveStrength/Kendell 1=Demonstrate adherence to instructed precautions during ADL tasks. 2=Patient will verbalize/demonstrate understanding of assistive devices/modifications for ADL. 3=Patient will improve strength/tolerance for activity to enable patient to perform ADL's. Speech Transistor Tester Goals Transistor Tester Goals Pt will demonstrate the ability to follow multi-step directions related to functional living environment with 85% accuracy. Pt will complete working memory tasks given auditory information with 85% accuracy. Pt will complete generative naming tasks with 85% accuracy. Dominique Manzano Aug 24, 2023 14:00
--- NOTE | 2023-08-26 16:49 | Therapy Team Discharge Summary ---
Therapy Discharge Summary Discharge Recommendations Date of Discharge Aug 24, 2023 at 12:51 Physical Therapy Patient admitted 08/18/23 to ARU for (R) THR. At the time of D/C, she was (I) with all bed mobility, transfers and gait up to 300' /c a FWW. She was (I) on a curb step, but required SBA on stairs /c rails. Her Elderly Mobility Scale improved to 14/20. Roll Left to Right (QC): 6 Sit to Lying (QC): 6 Lying to Sitting/Side of Bed(Q: 6 Sit to Stand (QC): 6 Chair/Her-xc-Xdlrx Xfer(QC): 6 Toilet Transfer (QC): 6 Car Transfer (QC): 6 Does the Patient Walk: Yes Mode of Locomotion: Walk Anticipated Mode of Locomotion: Walk Walk 10 feet (QC): 6 Walk 50 ft with 2 Turns(QC): 6 Walk 150 ft (QC): 6 Walking 10ft on uneven surface: 6 Distance: 300' Gait Assistive Device: FWW Does the Pt Use a Wheelchair: No Wheel 50 ft with 2 turns (QC): 9 Wheel 150 ft (QC): 9 #of Steps: 16 1 Step (curb) (QC): 6 4 Steps (QC): 4 12 Steps (QC): 4 Walking Assistive Device: Walker Balance Sitting Static: Good Balance Sitting Dynamic: Fair Balance-Standing Static: Good Picking up an Object (QC): 6 Occupational Therapy Decreased Activ Tolerance, Decreased UE Strength, Impaired I ADL's Eating (QC): 6 Oral Hygiene (QC): 6 Shower/Bathe Self (QC): 6 Upper Body Dressing (QC): 6 Lower Body Dressing (QC): 6 On/Off Footwear (QC): 6 Toileting Hygiene (QC): 6 PT [employer] Chief [employer] Goals Nursing Home Goals PT Nursing Home Goals Time Frame: Aug 27, 2023 Roll Left to Right (QC): 6 Sit to Lying (QC): 6 Lying-Sitting on Side/Bed(QC): 6 Sit to Stand (QC): 6 Chair/Ffn-mm-Agbvc Xfer(QC): 6 (/c FWW) Toilet/Commode Transfer (QC): 6 (/c FWW) Car Transfer (QC): 6 (/c FWW) Does the Patient Walk: Yes Walk 10 feet (QC): 6 (/c FWW) Walk 10ft-Uneven Surface(QC): 6 (/c FWW) Walk 50ft with 2 Turns (QC): 6 (/c FWW) Walk 150 ft (QC): 6 (/c FWW) Does the Pt use WC or Scooter?: No Wheel 50 feet with 2 turns (QC: 9 Wheel 150 feet: 9 1 Step (curb) (QC): 4 (SBA /c prn sequence cues) 4 Steps (QC): 4 (SBA /c prn sequence cues) 12 Steps (QC): 4 (SBA /c prn sequence cues) Picking up an Object (QC): 6 (/c or without device) OT President [employer] Chief [employer] Officer Goals President [employer] Chief [employer] Officer Goals Time Frame: Sep 11, 2023 Acute change in mental status: 0 Inattention: 0 Disorganized thinkin Altered level of consciousness: 0 Eating (QC): 6 (met) Oral Hygiene (QC): 6 (met) Toileting Hygiene (QC): 6 (met) Shower/Bathe Self (QC): 6 (met) Upper Body Dressing (QC): 6 (met) Lower Body Dressing (QC): 6 (met) On/Off Footwear (QC): 6 (met) Additional Goals: 1-Demonstrate ADL Tasks, 2-Verbalize Understanding, 3- ImproveStrength/Kendell 1=Demonstrate adherence to instructed precautions during ADL tasks. 2=Patient will verbalize/demonstrate understanding of assistive devices/modifications for ADL. 3=Patient will improve strength/tolerance for activity to enable patient to perform ADL's. Speech President And Chief Commercial Officer Goals Nursing Home Goals Pt will demonstrate the ability to follow multi-step directions related to functional living environment with 85% accuracy. Pt will complete working memory tasks given auditory information with 85% accuracy. Pt will complete generative naming tasks with 85% accuracy. Alexus Arciniega PT Aug 26, 2023 16:48
== END 2023-08-24 12:51 | disposition home health service (06) | DRG 560 ==
PROVIDERS: ADMIT Internal Medicine; ATTEND Internal Medicine
DX: S72.011D Unspecified intracapsular fracture of right femur, subsequent encounter for closed fracture with routine healing (principal); D62 Acute posthemorrhagic anemia; E78.00 Pure hypercholesterolemia, unspecified; I10 Essential (primary) hypertension; M19.90 Unspecified osteoarthritis, unspecified site; K59.09 Other constipation; W19.XXXD Unspecified fall, subsequent encounter; Y92.009 Unspecified place in unspecified non-institutional (private) residence as the place of occurrence of the external cause
CPT/HCPCS: 36415; 80053; 85025; 94760